=== PATIENT | female | born 1970 | race Two or more races ===

== ENCOUNTER 2019-12-10 04:43 | Inpatient (IN) | payer BC, OTHER ==
[2019-12-10] MEDS ORDERED: HEPARIN NA (PORCINE) 5,000 UNITS/ML 1ML VIAL ONE (07:17)
[2019-12-10] MEDS ORDERED: THROMBIN (BOVINE) 5,000 UNIT VIAL TP ONE ×3 (07:17→10:30)
[2019-12-10] MEDS ORDERED: MIDAZOLAM HCL 2 MG/2 ML SINGLE DOSE VIAL ONE ×2 (07:23→08:20)
[2019-12-10] MEDS ORDERED: DESFLURANE GAS 240 ML BOTTLE IH ONE (07:23)
[2019-12-10] MEDS ORDERED: PROPOFOL 20 ML ONE ×18 (07:24→14:43)
[2019-12-10] MEDS ORDERED: DEXMEDETOMIDINE HCL 200 MCG/2 ML IVPB ONE (07:30)
[2019-12-10] MEDS ORDERED: GENTAMICIN SO4 80 MG/2 ML VIAL ONE (07:57)
[2019-12-10] MEDS ORDERED: fentaNYL CITRATE 250 MCG/5 ML VIAL ONE (08:20)
[2019-12-10] MEDS ORDERED: LIDOCAINE 1%/EPI 1:100000 (50 ML MULTI DOSE VIAL) ONE (08:29)
[2019-12-10] MEDS ORDERED: ROCURONIUM BROMIDE 50 MG/5 ML SYRINGE ONE ×2 (08:29→10:00)
[2019-12-10] MEDS ORDERED: ceFAZolin SODIUM 1 GM VIAL IVPB ONE ×3 (08:45→15:04)
[2019-12-10] MEDS ORDERED: ceFAZolin SODIUM 1 GM VIAL ONE ×2 (08:49→13:10)
[2019-12-10] MEDS ORDERED: TRANEXAMIC ACID 1000 MG/10 ML VIAL ONE ×2 (08:49→14:31)
[2019-12-10] MEDS ORDERED: VANCOMYCIN 1,000 MG VIAL (RESTRICTED TO ID ONLY) ONE (08:49)
[2019-12-10] MEDS ORDERED: VANCOMYCIN 1,000 MG VIAL (RESTRICTED TO ID ONLY) IVPB ONE (09:00)
[2019-12-10] MEDS ORDERED: GELATIN, ABSORBABLE 100 EACH SPONGE TP ONE (10:31)
[2019-12-10] MEDS ORDERED: NEOSTIGMINE METHYLSULFATE 0.5 MG/1 ML - 10 ML MDV ONE (10:53)
[2019-12-10] MEDS ORDERED: BUPIVACAINE LIPOSOME/PF (EXPAREL) 266 MG/20 ML VIAL ONE (10:53)
[2019-12-10] MEDS ORDERED: GLYCOPYRROLATE 0.2 MG/1 ML VIAL ONE (10:53)
--- NOTE | 2019-12-10 13:17 | PN ---
Progress Note (short form) - Note Progress Note: 49F s/p L1-S1 laminectomies & facetectomies, left L2-L3 Hernandez-Randle osteotomy, excisional biopsy L2-L3 neurofibroma, L4-L5 PLIF, & L5-S1 PLIF, T12- S1 posterior instrumented spinal fusion POD #0. -Admit to ICU post-op. -Pain control: NO NSAID's; patient received intra-op paraspinal muscle block w/Exparel & marcaine; OK to use SPECIAL DELIVERY MAIL CARRIER if needed; transition to oral analgesia post-op. -DVT PPx: -Mechanical only: DARRELL's, SCD's. -Chemical: None. -Incentive spirometry q15 min. -NPO until flatus. -Alonso care; d/c when ambulating. -Ancef post-op x 3 doses. -PT/OT/Rehab, OOB. -WBAT B/L LE. -No bending, lifting (>5 lbs), or twisting for 9-12 months. -Care per ICU & medical hospitalist teams. -Discharge planning: [facility] Damon preferred if pt. needs rehab; f/u 7-10 days a fter rehab (or hospital) [facility]; call for appointment; . -Will follow. Carl Randle MD (Orthopaedic Surgery).
--- NOTE | 2019-12-10 13:25 | OP ---
Operative Note - Note: Operative Date: 12/10/19 Pre-Operative Diagnosis: 1. L2-L3 neurofibroma. 2. L4-L5 spondylolisthesis with associated facet cyst. 3. L5-S1 intervertebral disc disorder with associated facet cyst. 4. L2-S1 spinal stenosis with associated radiculopathy, claudication, and neurogenic bladder Operation: 1. L1 laminectomy & inferior facetectomy. 2. L2 laminectomy & superior and inferior facetectomies. 3. L3 laminectomy & superior and inferior facetectomies. 4. L4 laminectomy & superior and inferior facetectomies. 5. L5 laminectomy & superior and inferior facetectomies. 6. S1 laminectomy & superior facetectomy. 7. L4-L5 discectomy, PLIF, and posterolateral arthrodesis. 8. L5- S1 discectomy, PLIF, and posterolateral arthrodesis. 9. 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 10. Left L2-L3 Hernandez-Randle osteotomy. 11. T12-S1 posterior instrumentation. 12. Bone autograft (morselized). 13. Bone allograft (morselized). 14. Complex wound closure. 15. Fluoroscopy Implants: Cages: RTI Fortilink Tetrafuse. L4-L5 13mm. L5-S1 12mm. Screws: Precision Reform. T12-L5 6.5x40mm; Left L2 screw removed. S1 7.5x35mm Post-Operative Diagnosis: Same as Pre-op Surgeon: Carl Randle (CoSurgeon: Paul Nelson MD) Medical Program Specialist: Billy Randle Anesthesiologist/SOAP GRINDER: Yg Ríos Anesthesia: General Specimens Removed: L4-L5, L5-S1 discs. L2-L3 tumor (suspected neurofibroma) Estimated Blood Loss (mls): 550 Drains & Tubes with Location: 1 x superficial HemoVac Blood Volume Replaced (mls): 200 (Cell Saver) Fluid Volume Replaced (mls): 2,000 (Crystalloid) Operative Report Dictated: Yes
[2019-12-10] MEDS ORDERED: HYDROmorphone HCl 2 MG/ML VIAL ONE (13:30)
[2019-12-10] MEDS ORDERED: BUPIVACAINE HCL/PF 0.5% (5MG/ML) 10 ML VIAL IJ ONE (14:53)
[2019-12-10] MEDS ORDERED: BUPIVACAINE LIPOSOME/PF (EXPAREL) 266 MG/20 ML VIAL NR ONE (14:53)
[2019-12-10] MEDS ORDERED: TRANEXAMIC ACID 1000 MG/10 ML VIAL IVPUSH ONE (15:06)
[2019-12-10] MEDS ORDERED: diazePAM CARPU-JECT 10 MG/2 ML DISP.SYRIN IVPUSH PRN (15:40)
[2019-12-10] MEDS ORDERED: oxyCODONE HCL 5 MG TABLET PO PRN ×2 (15:40)
[2019-12-10] MEDS ORDERED: ACETAMINOPHEN INJECTION 100 ML IVPB ONE (16:45)
[2019-12-10] MEDS: ACETAMINOPHEN 1000 MG/100 ML VIAL (NON FORMULARY) IVPB SCH ×2 (16:49→23:45)
[2019-12-10] MEDS ORDERED: HYDROmorphone *PCA* 10MG/50ML DISP.SYRIN ONE (16:50)
[2019-12-10] MEDS: HYDROmorphone *PCA* 10MG/50ML DISP.SYRIN PCA SCH (17:06)
[2019-12-10] MEDS: LACTATED RINGERS SOLUTION 1,000 ML IV SCH (18:44)
--- NOTE | 2019-12-10 18:51 | HP ---
CHIEF COMPLAINT: POD#0 for L1-S1 laminectomies & facetectomies, left L2-L3 Hernandez-Randle osteotomy, excisional biopsy L2-L3 neurofibroma, L4-L5 PLIF (Posterior Lumbar Interbody Fusion (PLIF), & L5-S1 PLIF, T12-S1 posterior instrumented spinal fusion PCP: HISTORY OF PRESENT ILLNESS: Patient is a 49 F with PMH HTN & Sleep apnea (on CPAP) presents with a pre- operative diagnosis of (1) L2-L3 neurofibroma, (2) L4-L5 spondylolisthesis with associated facet cyst, (3) L5-S1 intervertebral disc disorder with associated facet cyst, (4) L2-S1 spinal stenosis with associated radiculopathy, claudication, and neurogenic bladder. She presented for surgery with Dr. Carl Randle for L1-S1 laminectomies & facetectomies, left L2-L3 Hernandez-Randle osteotomy, excisional biopsy L2-L3 neurofibroma, L4-L5 PLIF (Posterior Lumbar Interbody Fusion (PLIF), & L5-S1 PLIF, T12-S1 posterior instrumented spinal fusion. POD#0 Recent Travel: denies PAST MEDICAL HISTORY: HTN & Sleep apnea (on CPAP) PAST SURGICAL HISTORY: L1-S1 laminectomies & facetectomies, left L2-L3 Hernandez- Randle osteotomy, excisional biopsy L2-L3 neurofibroma, L4-L5 PLIF (Posterior Lumbar Interbody Fusion (PLIF), & L5-S1 PLIF, T12-S1 posterior instrumented spinal fusion Social History: Smoking: denies Alcohol: socially Drugs: denies Family History: denies Allergies Penicillins Allergy (Intermediate, Verified 12/10/19 07:34) Hives Sulfa (Sulfonamide Antibiotics) Allergy (Intermediate, Verified 12/10/19 07:34) Hives opoids Adverse Reaction (Intermediate, Uncoded 12/10/19 07:34) Nausea vomiting,low blood pressure HOME MEDICATIONS: Home Medications Medication Instructions Recorded Lisinopril 20 mg PO HS 12/07/19 Albuterol Sulfate Inhaler - 2 inh PO Q6H PRN 12/10/19 [Ventolin Hfa Inhaler -] REVIEW OF SYSTEMS CONSTITUTIONAL: Absent: fever, chills, diaphoresis, generalized weakness, malaise, loss of appetite, weight change HEENT: Absent: rhinorrhea, nasal congestion, throat pain, throat swelling, difficulty swallowing, mouth swelling, ear pain, eye pain, visual changes CARDIOVASCULAR: Absent: chest pain, syncope, palpitations, irregular heart rate, lightheadedness, peripheral edema RESPIRATORY: Absent: cough, shortness of breath, dyspnea with exertion, orthopnea, wheezing, stridor, hemoptysis GASTROINTESTINAL: Absent: abdominal pain, abdominal distension, nausea, vomiting, diarrhea, constipation, melena, hematochezia GENITOURINARY: Absent: dysuria, frequency, urgency, hesitancy, hematuria, flank pain, genital pain MUSCULOSKELETAL: back pain Absent: myalgia, arthralgia, joint swelling, neck pain SKIN: Absent: rash, itching, pallor HEMATOLOGIC/IMMUNOLOGIC: Absent: easy bleeding, easy bruising, lymphadenopathy, frequent infections ENDOCRINE: Absent: unexplained weight gain, unexplained weight loss, heat intolerance, cold intolerance NEUROLOGIC: Absent: headache, focal weakness or paresthesias, dizziness, unsteady gait, seizure, mental status changes, bladder or bowel incontinence PSYCHIATRIC: Absent: anxiety, depression, suicidal or homicidal ideation, hallucinations. PHYSICAL EXAMINATION Vital Signs - 24 hr 12/10/19 12/10/19 12/10/19 07:22 07:31 15:45 Temperature 97.8 F 98.6 F Pulse Rate 77 92 H Respiratory 20 17 Rate Blood Pressure 137/68 103/60 O2 Sat by Pulse 97 99 92 L Oximetry (%) 12/10/19 12/10/19 12/10/19 16:00 16:15 16:30 Temperature Pulse Rate 89 83 78 Respiratory 17 17 18 Rate Blood Pressure 125/70 118/64 112/60 O2 Sat by Pulse 94 L 100 100 Oximetry (%) 12/10/19 12/10/19 12/10/19 16:45 17:00 17:06 Temperature Pulse Rate 88 86 68 Respiratory 16 13 13 Rate Blood Pressure 129/54 L 110/61 110/61 O2 Sat by Pulse 100 100 100 Oximetry (%) 12/10/19 12/10/19 12/10/19 17:15 17:30 17:36 Temperature Pulse Rate 72 70 67 Respiratory 28 H 14 13 Rate Blood Pressure 116/53 L 93/44 L 116/57 L O2 Sat by Pulse 100 100 100 Oximetry (%) 12/10/19 12/10/19 12/10/19 17:37 17:50 18:00 Temperature 98.5 F 98.8 F Pulse Rate 65 80 78 Respiratory 17 12 16 Rate Blood Pressure 116/57 L 113/77 108/58 L O2 Sat by Pulse 100 100 Oximetry (%) 12/10/19 12/10/19 18:16 18:35 Temperature Pulse Rate 100 H Respiratory 14 Rate Blood Pressure 110/65 O2 Sat by Pulse 100 100 Oximetry (%) GENERAL: Awake, alert. In distress due to back pain HEENT: Normal with no signs of trauma. PERRL, Moist mucous membranes. LUNGS: decreased breath sounds b/l. No wheezes, and no crackles. No accessory muscle use. HEART: Regular rate and rhythm, normal S1 and S2 without murmur, rub or gallop. ABDOMEN: Obese Soft, nontender, not distended, hypoactive bowel sounds, no guarding, no rebound EXTREMITIES: 2+ pulses, warm, well-perfused. No peripheral edema. BACK: dressing along spine, Davol drain on Left side NEUROLOGICAL: unable to assess as patient is in pain and non-participatory in exam Laboratory Results - last 24 hr 12/10/19 12/10/19 12/10/19 06:32 06:32 08:09 Serum , Qual Negative Blood Type AB POSITIVE AB POSITIVE Antibody Screen Negative Crossmatch See Detail ASSESSMENT/PLAN: 49 F PMH HTN & Sleep apnea (on CPAP) admitted to ICU for post-operative management for L1-S1 laminectomies & facetectomies, left L2-L3 Hernandez-Randle osteotomy, excisional biopsy L2-L3 neurofibroma, L4-L5 PLIF (Posterior Lumbar Interbody Fusion (PLIF), & L5-S1 PLIF, T12-S1 posterior instrumented spinal fusion POD #0. Neuro -per Ortho note, NO NSAID's. 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 transition to oral analgesia post-op. -PT/OT/Rehab, OOB. -WBAT B/L LE. -No bending, lifting (>5 lbs), or twisting for 9-12 months. Cardio #HTN Continue with home lisinopril 20 mg PO HS Pulm -Incentive spirometry q15 min. Encourage incentive spirometry use #BUBBA -on CPAP at home -patient's pharmacy lists albuterol as home medication, but patient denies asthma, COPD, and other pulmonary conditions. Will ask patient again when her pain decreases and she is able to participate in exam more GI Rodrigo 4 mg IV push Q6H PRN for Nausea/vomiting -maintain Madrigal care -d/c madrigal when ambulating. ID -COVID neg -Ancef post-op x 3 doses: 2 gm Q6H DVT PPX -Mechanical only: DARRELL's, SCD's. -Chemical: None. FEN LR@125 ml/hr -Monitor lytes -NPO until flatus. DISPO -ICU -Elena Damon if pt needs rehab; f/u 7-10 days after rehab (or hospital) discharge at [facility] office; call for appointment; . Family Medical History Family History: As Documented Visit type - Emergency Visit Emergency Visit: Yes ED Registration Date: 12/10/19 Care time: The patient presented to the Emergency Department on the above date and was hospitalized for further evaluation of their emergent condition. - New Patient This patient is new to me today: Yes Date on this admission: 12/10/19 - Critical Care Critical Care patient: Yes Total Critical Care Time (in minutes): 35 Critical Care Statement: The care of this patient involved high complexity decision making to prevent further life threatening deterioration of the patient's condition and/or to evaluate & treat vital organ system(s) failure or risk of failure. ATTENDING PHYSICIAN STATEMENT I saw and evaluated the patient. I reviewed the resident's note and discussed the case with the resident. I agree with the resident's findings and plan as documented. SUBJECTIVE: OBJECTIVE: ASSESSMENT AND PLAN:
[2019-12-10] MEDS: CHLORHEXIDINE GLUCONATE 4% CLEANSER FOR DECOLONIZATION TP SCH (21:10)
[2019-12-10] MEDS: LISINOPRIL 20 MG TABLET PO SCH (21:10)
[2019-12-10] MEDS: ceFAZolin 2 GRAM PREMIX BAG IVPB SCH (21:10)
[2019-12-10] MEDS: MUPIROCIN 2% TOPICAL OINTMENT FOR DECOLONIZATION NS SCH (21:10)
--- NOTE | 2019-12-10 22:25 | OP ---
Date of Operation: 12/10/2019 Pre-Operative Diagnosis: 1. 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 2. L4-L5, L5-S1 intervertebral disc disorders with facet cysts and spondylotic radiculopathy. 3. L2-S1 spinal stenosis with neurogenic bladder, neurogenic claudication, lower extremity weakness, and increased fall risk. 4. L4-L5 spondylolisthesis (Grade 1 anterolisthesis). 5. L4-L5, L5-S1 axial segmental instability with associated myofascial pain complex and lumbosacral enthesopathy. Post-Operative Diagnosis: 1. Locally malignant L2 nerve sheath tumor ([id number]) with severe spinal stenosis. 2. L4-L5, L5-S1 intervertebral disc disorders with facet cysts and spondylotic radiculopathy. 3. L2-S1 spinal stenosis with neurogenic bladder, neurogenic claudication, lower extremity weakness, and increased fall risk. 4. L4-L5 spondylolisthesis (Grade 1 anterolisthesis). 5. L4-L5, L5-S1 axial segmental instability with associated myofascial pain complex and lumbosacral enthesopathy. Procedure Performed: 1. L1 bilateral laminectomies. ([id number]) 2. L2 bilateral laminectomy for excision of intraspinal neoplasm; combined extradural-intradural lesion. () 3. Left L2 transpedicular decompression of thecal sac and nerve root. () 4. L3 bilateral laminectomies and facetectomies. () 5. L4 bilateral laminectomies and facetectomies. () 6. L5 bilateral laminectomies and facetectomies. () 7. S1 bilateral laminectomies and facetectomies. () 8. L3 bilateral posterior osteotomies. () 9. L4 bilateral posterior osteotomies. () 10. L5 bilateral posterior osteotomies. () 11. S1 bilateral posterior osteotomies. () 12. L4-L5 posterior lumbar interbody fusion (PLIF) and bilateral posterior/lateral arthrodesis. () 13. L5-S1 posterior lumbar interbody fusion (PLIF) and bilateral posterior/lateral arthrodesis. () 14. L4-L5 insertion biomechanical device. () 15. L5-S1 insertion biomechanical device. () 16. T12-S1 posterior instrumentation; 7 vertebral segments. () 17. T12-L1 bilateral posterior/lateral arthrodesis. () 18. L1-L2 bilateral posterior/lateral arthrodesis. () 19. L2-L3 bilateral posterior/lateral arthrodesis. () 20. L3-L4 bilateral posterior/lateral arthrodesis. () 21. Deformity correction; latter-day of lordosis. () 22. Morselized bone autograft. () 23. Morselized bone allograft. () 24. Bone marrow aspiration for bone grafting. () 25. Microsurgical dissection. ([id number]) 26. Complex wound closure, 4 layers, 30cm. ([id number] x 4) 27. Fluoroscopy. ([id number]) 28. Ultrasonic guidance, intraoperative. ([id number]) Surgeon: Carl Randle M.D. Co-Surgeon: Paul Nelson M.D. Traffic Division Commanding Officer: Billy Randle M.D. Anesthesiologist: Yg Ríos M.D. Anesthesia: General. Position: Prone. Incision: Midline. Specimens Removed: Left L2 nerve sheath tumor (histology & frozen section); L4- L5, L5-S1 disc (histology). Drains: 1 x superficial HemoVac. Estimated Blood Loss: 550cc. Intravenous Fluid: 2L crystalloid. Transfusions: 200cc Cell Saver. Complications: None. Bacteriology: None. Closure: No. 1 Vicryl, 2-0 Biosyn absorbable sutures. Indications: The patient was indicated for the above listed surgical procedure due to progressive neurological, and functional decline that limits her mobility and capacity to independently perform routine activities of daily living. Due to the severity of her multi-level lumbar spinal stenosis, the patient was suffering from a neurogenic bladder, and had also experienced a fall due to her lower extremity weakness. The patient was identified in the holding area by her armband. A long discussion was held with the patient regarding the risks, benefits, and alternatives of the above-named procedure. The risks include, but are not limited to: pain, bleeding, infection, damage to surrounding structures (including nerves, blood vessels, skin, ligaments, tendons, and bone), nerve palsy, paresthesias, weakness, limp, wound complications, pseudarthrosis, failure of fusion, failure of hardware/implants/reduction, need for further surgery, blood clots, myocardial infarction, pulmonary embolism, cerebrovascular event, anesthesia complications, neurological injury, loss of function, and . Benefits as mentioned above. Alternatives include no surgery. All questions were answered. The patient understood and agreed to the procedure. Informed consent was obtained, witnessed, and verified by hospital nursing staff. The patients lumbar spine was marked. The patient was then assessed by the nursing and anesthesia teams, and then transported to the operating room. Procedure: The patient was brought into the operating room. Consent and the operative site were again verified with the patient, the nursing team, the surgical team, and the anesthesiology team. Anesthesia, IV antibiotics, and TXA were then administered without complication. A time out was done, led by me the attending surgeon. An indwelling Alonso catheter was successfully inserted by the nursing team. The intra-operative neuromonitoring team provided prepositioning baseline motor and sensory readings. The patient was then safely placed in a prone position with all bony prominences well-padded [facility] with strict attention paid to maintenance of sagittal vertical alignment. Retroversion of the pelvis was avoided by ensuring that the hips were extended. This also ensured appropriate lumbar lordosis. The arms were placed on well-padded arm boards and maintained with standard forward flexion, abduction, and external rotation of the shoulders, and flexion of the elbows. Special attention was given to the safe positioning of the cervical spine. The patients eyes, breasts, and belly were all free. The table was placed in 5 degrees of reverse Trendelenburg position to avoid ophthalmic vein congestion. Post-positional motor and sensory readings confirmed no change. A C-arm fluoroscopy unit was positioned perpendicularly to the table and maintained at the level of the upper thoracic spine, except when needed. The skin was prepped in standard, sterile fashion using betadine prep & scrub, wiped off with alcohol, and DuraPrep applied. Standard window draping was utilized, and this included draping of the C-arm. All pre-operative imaging was available throughout the case for intraoperative evaluation. A time-out was repeated, and the case began. A midline skin incision was performed from the tip of the spinous process of T11 to the tip of the spinous process of S2. Using electrocautery, the dissection was carried down through subcutaneous fat and then through the midline of the lumbodorsal fascia down to the tips of the spinous processes. A subperiosteal dissection was performed using a combination of unipolar electrocautery and Bradshaw elevation. This was carried down the spinous process, over the laminae, across the facet joints, and out over the tips of the transverse processes from T12 to the ala of the sacrum. The posterolateral dissection was performed with attention to hemostasis by utilizing both unipolar as well as bipolar electrocautery. In this dissection, the capsules of the T11-T12 joints were preserved bilaterally. The L3-L4, L4-L5, and L5-S1 joint capsules were pathologically hypertrophic. These facet joints were ablated using electrocautery and resected with Leksell rongeurs. The posterolateral and intertransverse spaces were packed with Ray-Isa sponges. A Yesika clamp was placed over an exposed interspinous space and, once again, a lateral fluoroscopic x-ray helped identify the correct levels for dissection. A rongeur was used to grasp the L3, L4, and L5 spinous processes and demonstrate the mobility of the L3-L4, L4-L5, and L5-S1 segments. This helped identify the last mobile segment. Bilateral laminectomies were performed at L3, L4, L5, and S1 utilizing Kerrison rongeur upcuts combined with Leksell rongeurs. All harvested bone was saved, freed of fibrous tissue, and morselized with a bone mill. Next, an osteotome was utilized to bilaterally and longitudinally split the pars interarticularis and the inferior facets of L3, L4, and L5. The osteotomized bone was imploded towards the thecal sac, which was protected with cottonoid patties, and removed with either a Leksell rongeur or a Kerrison ronguer. The ligamentum flavum and other posterior soft tissue remained intact and served as a soft-tissue cushion which protected the dura during the bony implosion. Upon removal of all osteotomized bone, we gained clear and easy access to the superior facets of L4, L5, and S1, where abnormally tight recess stenosis was appreciated. The exiting L3, L4, L5, & S1 nerve roots were identified and protected. More than the medial half of the superior facet was resected on each side using Kerrison rongeurs. This was necessary to adequately decompress the theca and the exiting nerve roots at each level. The crowding of the convoluted ligamentum flavum and posterior facet joint capsules contributed to the recess stenosis. These structures were excised using Kerrison upcuts, thus fully completing the posterior and lateral recess decompression. Each foramen from L3-S1 was inspected utilizing an angled ball-tipped probe and proved to be generously capacious in accommodating the unobstructed exit of the nerve root at that level. All retractors were relaxed and removed. A Jamshidi needle was delivered into the left posterior ileum through the same surgical incision. Via this, 60 mL of bone marrow was aspirated and spun down to isolate a mix of osteoprogenitor and hematopoietic cells. Retractors were inserted once again. In order to adequately decompress each lateral recess and neuroforamen from L3- S1, greater than 50% of the facet joint on each side was osteotomized and resected. This extensive decompression has been shown to result in iatrogenic instability of the spine (I.E. spondylolisthesis). Thus, the decision was made to additionally perform posterior lumbar interbody fusions at L4-L5 and L5-S1 (where the discs were additionally compromised) with instrumented posterolateral arthrodesis from L3-S1. The combination of anterior interbody arthrodesis and posterolateral instrumented arthrodesis is known to produce the highest success rates of spinal fusion surgery. The following was performed at L4-L5 and L5-S1: At both levels, there was extensive epidural fibrosis that was meticulously dissected to allow safe mobilization of the theca. The theca was gently mobilized from left to right using a nerve root retractor. To do this, we ensured that each nerve root was completely free in its neural foramen as previously described. With the intervertebral disc clearly visualized, large epidural veins were cauterized using bipolar electrocautery. The disc was approached from the left side and using a #11-blade, an elliptical annulotomy was performed. Tejas were passed into the disc at each level. At each level, the discs were morselized with rotation of the tejas, and then extricated with pituitary rongeurs and saved for lab evaluation. The end plates were freed of all soft tissues using a serrated curette. Milled bone autograft was packed into the interbody space, thus completing an anterior arthrodesis of the intervertebral space. A Fortilink Tetrafuse spacer, that was packed with autograft bone, was inserted into the prepared intervertebral space. The cage was placed in a Press-Fit type manner where the tejas were one size under the actual size of the spacer placed as outlined above. An interference fit of the cage assured as we relied on ligamentotaxis for fixation. Placement of the interbody cage additionally reconstituted the intervertebral disc height, which further decompressed the stenosed neuroforaminae bilaterally. No dural problems were encountered, and the dura appeared healthy throughout the procedure. At this point, the neuromonitoring revealed no complications. Cages and sizes inserted: L4-L5: [id number]. L5-S1: [id number]. Bilateral laminectomies were then also performed at L1 and L2 utilizing Kerrison rongeur upcuts combined with Leksell rongeurs. All harvested bone was saved, freed of fibrous tissue, and morselized with a bone mill. At L2, the dissection was carried laterally to the left with complete removal of the superior facet of L2 and the inferior facet of L3 (I.E. a Hernandez-Randle osteotomy with removal of the entire L2-L3 facet joint). The left L2 transverse process and part of the left L2 pedicle were resected as well. The tumor was entirely exposed all the way to its lateral margin. Intraoperative ultrasonic guidance was utilized to confirm that the cranial and caudal poles of the tumor were exposed. The operating microscope was then introduced into the field. The decompression and excision of the tumor occurred using meticulous microdissection techniques. The dura over the expanded nerve root sleeve was incised horizontally using an 11 blade. This incision was extended laterally. The tumor was dissected free from the large root sleeve, and then was removed in piecemeal fashion. Several pieces of tumor were sent to the pathology lab for Frozen Section analysis, which confirmed nerve sheath tumor with no atypia. Following complete dissection of the tumor, the left L2 nerve root remained in anatomic continuity. There was no response of the left L2 nerve to direct electrical stimulation. The Frozen Section specimen appeared benign, so we elected not to sacrifice the left L2 nerve root. The dural ostium at that level was repaired with Surgicel guaze and DuraSeal. Pedicle screws were then seated bilaterally from T12-S1 utilizing standard anatomical guidelines: IE the intersection of the horizontal axis of the transverse process with the longitudinal axis of the inferior facet at each level. The left L2 screw was skipped due to the transpedicular approach utilized. Utilizing lateral fluoroscopic x-ray, a 4.5mm pneumatic drill was passed via the pedicle at each level, into the corresponding vertebral body. Imaging allowed us to ensure that the drill screw was delivered along the undersurface of each endplate. This ensured fixation into the best quality bone. Each pedicle was palpated with a ball-tipped feeler. No breech of anterior, medial, lateral, caudal or cranial bone bed was noted. 6.5x40mm Precision Spine Reform screws were inserted from T12 to L5. At S1, 7.5x35mm screws were used. All intraoperative neuromonitoring readings were at or above the safe passage of 10 mA. Each screw was reevaluated with lateral and anteroposterior fluoroscopy as well as intraoperative neuromonitoring. The L3, L4, L5 and S1 pedicles were inspected and palpated using an angled ball- tipped probe. There was no evidence of screw breach involving any of the pedicles. Next, two rods were contoured, inserted, and fixed into the screw heads with the appropriate screw caps. A torque-limiting device completed the fixation of each cap into each screw head. No crosslink. Next, the muscle was gently retracted off the intertransverse plane. All Ray-Isa packing sponges were removed. Milled autologous bone with allograft expansion was combined with the bone marrow aspirate concentrate and used for the posterolateral arthrodesis along the intertransverse plane from T12 to S1. Prior to this bone grafting, the recipient bone bed was denuded of all soft tissue. No burring was necessary due to healthy bleeding of each bony surface, including the posterior surfaces of the bilateral transverse processes, and the lateral surfaces of the pars interarticularis at each level. Throughout the case, the wound was irrigated with normal saline solution to keep the exposed soft tissues hydrated. The retractors were released every 15 to 20 minutes to enable adequate blood flow to the paraspinal muscles. These muscles were gently massaged upon release of the retractors to further facilitate blood flow. At the end of the procedure, fragmented and compromised paraspinal muscle was superficially debrided. There was no evidence of dural defect, cerebrospinal fluid leak, or uncontrollable bleeding. The entirety of this case was significantly more technically challenging than usual dude to the patients morbid obesity (BMI >42 kg/m2). Closure: The lumbodorsal fascia overlying the paraspinal musculature was closed in the midline using #1 vicryl sutures in simple interrupted fashion. A 1/8 HemoVac drain was placed in the plane superficial to the fascia, exiting adjacent to the proximal apex of the incision. The wound was repeatedly thoroughly irrigated with normal saline solution. The subcutaneous tissues were closed using #1 Vicryl sutures. The skin was closed using a running 2-0 Biosyn absorbable suture. This completed a 4-layered complex wound closure of approximately 30cm. The skin was then painted with benzoin and Steri-Strips were applied without tension perpendicularly to the incision. A Primapore adhesive Telfa island dressing was applied over the Steri-Strips and a sterile, compressive dressing was applied using 4x4 gauze pads. The skin was painted with DuraPrep. The wound was then sealed with adhesive Ioban. Final AP & lateral fluoroscopic analysis revealed L4-L5 and L5-S1 PLIF cages and T12-S1 instrumentation that appeared intact & place. The L4-L5 and L5-S1 disc heights were reconstituted with visibly patent neuroforaminae. There was no fluoroscopic evidence of retained sponges or needles. The sponge and needle counts were correct at the end of the case and I, the attending surgeon, was present and scrubbed throughout the case. All neural monitoring leads were removed. The patient was transferred to a hospital bed. The patient was then transferred to the recovery room in stable condition, as per the anesthesia team, having tolerated the procedure well. Overall comment: Operation went extremely well with no complications. All appropriate goals were achieved in this operative event. MD YENI Vásquez/[id number] MTDD
[2019-12-11] MEDS: ceFAZolin 2 GRAM PREMIX BAG IVPB SCH ×2 (03:19→08:10)
[2019-12-11] MEDS ORDERED: ARTIFICIAL TEARS (POLYVINYL ALCOHOL) OPTH DROPS OU PRN (05:34)
[2019-12-11 07:37] LABS: HEMATOCRIT 27.4 % (32.4-45.2); HEMOGLOBIN 9.1 GM/dL (10.7-15.3); MCH 29.1 pg (25.7-33.7); MCHC 33.3 g/dl (32.0-36.0); MEAN CELL VOLUME 87.4 fl (80-96); MEAN PLT VOLUME 8.1 fl (7.5-11.1); PLATELET COUNT 281 K/MM3 (134-434); RBC 3.14 M/mm3 (3.60-5.2); RDW 14.4 % (11.6-15.6)
[2019-12-11 07:40] LABS: BLOOD UREA NITROGEN 10.2 mg/dL (7-18); CALCIUM 8.2 mg/dL (8.5-10.1); CREATININE 0.5 mg/dL (0.55-1.3); MAGNESIUM 1.6 mg/dL (1.8-2.4)
[2019-12-11] MEDS: ACETAMINOPHEN 1000 MG/100 ML VIAL (NON FORMULARY) IVPB SCH (08:07)
--- NOTE | 2019-12-11 08:13 | PN ---
Progress Note (short form) - Note Progress Note: Anesthesia/Pain Pt seen and examined S:Alert and awake,comfortable O: Vital Signs Temperature 98.3 F 12/11/19 06:00 Pulse Rate 90 12/11/19 07:49 Respiratory Rate 14 12/11/19 07:49 Blood Pressure 120/51 L 12/11/19 07:30 O2 Sat by Pulse Oximetry (%) 100 12/11/19 07:56 CBC, BMP 12/11/19 05:30 12/11/19 05:30 A/P; s/p laminectomy Doing well post op Continue current care Laci Tai M.D.
[2019-12-11] MEDS ORDERED: MAGNESIUM SULF 50% (8.12 MEQ/2 ML-1 GM VIAL) IVPB ONE (09:00)
--- NOTE | 2019-12-11 10:19 | PN ---
Physical Exam: SUBJECTIVE: Patient seen and examined. Endorsed lower back pain that is controlled with the REHAB CONSULTANT. Endorsed new-onset blurry vision since waking up after the surgery. She endorsed that someone had told her that it is a possible complication from anesthesia. However, her vision has improved in the morning. Endorsed decreased sensation in Left arm, but then later endorsed decreased sensation in different arms to different providers. Also endorses pain in Right arm. Patient also endorsed decreased sensation in the Left leg, however when the SCDs were taken off, the sensation in her bilateral legs were equal. Davol drained 100 mL sanguinous fluid overnight. POD#1 OBJECTIVE: Vital Signs Period Temp Pulse Resp BP Sys/Connolly Pulse Ox Last 24 Hr 98 F-98.8 F 64-100 12-28 93-129/44-91 92-100 GENERAL: The patient is awake, alert, and fully oriented, in no acute distress. back pain HEENT: Normal with no signs of trauma. PERRL, EOMI, MMM LUNGS: Breath sounds equal, clear to auscultation bilaterally, no wheezes, no crackles, no accessory muscle use. HEART: Regular rate and rhythm, S1, S2 without murmur, rub or gallop. ABDOMEN: Obese Soft, nontender, not distended, hypoactive bowel sounds, no guarding, no rebound EXTREMITIES: 2+ pulses, warm, well-perfused. No peripheral edema. BACK: dressing along spine, Davol drain on Left side NEUROLOGICAL: Cranial nerves II through XII grossly intact. Normal speech, gait not observed. PSYCH: Normal mood, normal affect. Laboratory Results - last 24 hr 12/11/19 12/11/19 05:30 05:30 WBC 15.0 H RBC 3.14 L Hgb 9.1 L Hct 27.4 L MCV 87.4 MCH 29.1 MCHC 33.3 RDW 14.4 Plt Count 281 MPV 8.1 Sodium 142 Potassium 4.0 Chloride 107 Carbon Dioxide 29 Anion Gap 6 L BUN 10.2 Creatinine 0.5 L Est GFR (CKD-EPI)AfAm 132.65 Est GFR (CKD-EPI)NonAf 114.45 Random Glucose 93 Calcium 8.2 L Phosphorus 4.0 Magnesium 1.6 L Active Medications Generic Name Dose Route Start Last Admin Trade Name Freq PRN Reason Stop Dose Admin Artificial Tears 1 drop 12/11/19 05:34 Artificial Tears OU BID PRN DRY EYES Chlorhexidine Gluconate 1 applic 12/10/19 22:00 12/10/19 21:10 Hibiclens For Decolonization - TP 1 applic HS SHERRY Administration Diazepam 5 mg 12/10/19 15:40 Valium Injection - IVPUSH Q6H PRN MUSCLE SPASMS Diphenhydramine HCl 12.5 mg 12/10/19 15:51 12/11/19 08:39 Benadryl Injection - IVPUSH 12.5 mg ONCE PRN Administration FOR ITCHING Hydromorphone HCl 10 mg 12/10/19 16:00 12/10/19 17:06 Hydromorphone 10 Mg/50 Ml-Ns REHAB CONSULTANT 12/17/19 15:52 10 mg REHAB CONSULTANT SHERRY Administration Protocol Lactated Ringer's 1,000 mls @ 125 mls/hr 12/10/19 15:45 12/10/19 18:44 Lactated Ringers Solution IV Not Given ASDIR SHERRY Lisinopril 20 mg 12/10/19 22:00 12/10/19 21:10 Prinivil PO 20 mg HS SHERRY Administration Mupirocin 1 applic 12/10/19 22:00 12/10/19 21:10 Bactroban Ointment (For Decolonization) - NS 12/15/19 21:59 1 applic BID SHERRY Administration Ondansetron HCl 4 mg 12/10/19 15:40 Zofran Injection IVPUSH Q6H PRN NAUSEA AND/OR VOMITING ASSESSMENT/PLAN: 49 F PMH HTN & Sleep apnea (on CPAP) admitted to ICU for post-operative management for L1-S1 laminectomies & facetectomies, left L2-L3 Hernandez-Randle osteotomy, excisional biopsy L2-L3 neurofibroma, L4-L5 PLIF (Posterior Lumbar Interbody Fusion (PLIF), & L5-S1 PLIF, T12-S1 posterior instrumented spinal fusion POD #1. Neuro -per Ortho note, NO NSAID's. Currently on hydromorphone 10 mg REHAB CONSULTANT. transition to oral analgesia post-op. -PT/OT/Rehab, OOB. -WBAT B/L LE. -No bending, lifting (>5 lbs), or twisting for 9-12 months. -Spine X-ray: posterior fusion from T12 through the upper sacrum. Lower laminectomies. SI joints are patent. There are Right upper quadrant clips and a drain Cardio #HTN Continue with home lisinopril 20 mg PO HS Pulm -Incentive spirometry q15 min. Encourage incentive spirometry use #BUBBA -on CPAP at home -patient took albuterol only in May for URI, but no longer takes it. denies asthma, COPD, & other pulmonary complications. GI Zofran 4 mg IV push Q6H PRN for Nausea/vomiting Heme #Leukocytosis likely reactive: WBCs 15 #Normocytic anemia: Hgb/Hct 9.1/27.4; MCV 87.4 -estimated blood loss during procedure was 550 ml -maintain Madrigal care -d/c madrigal when ambulating. ID -COVID neg -Ancef post-op x 3 doses: 2 gm Q6H DVT PPX -Mechanical only: DARRELL's, SCD's. -Chemical: None. FEN LR@125 ml/hr -Monitor lytes -NPO until flatus. DISPO -ICU -Elena Damon if pt needs rehab; f/u 7-10 days after rehab (or hospital) discharge at [facility] office; call for appointment; . Visit type - Emergency Visit Emergency Visit: Yes ED Registration Date: 12/10/19 Care time: The patient presented to the Emergency Department on the above date and was hospitalized for further evaluation of their emergent condition. - New Patient This patient is new to me today: No - Critical Care Critical Care patient: Yes Total Critical Care Time (in minutes): 35 Critical Care Statement: The care of this patient involved high complexity decision making to prevent further life threatening deterioration of the patient's condition and/or to evaluate & treat vital organ system(s) failure or risk of failure. ATTENDING PHYSICIAN STATEMENT I saw and evaluated the patient. I reviewed the resident's note and discussed the case with the resident. I agree with the resident's findings and plan as documented. SUBJECTIVE: OBJECTIVE: ASSESSMENT AND PLAN:
[2019-12-11] MEDS ORDERED: PCA PUMP NR ONE ×2 (10:33→19:07)
[2019-12-11] MEDS: HYDROmorphone *PCA* 10MG/50ML DISP.SYRIN PCA SCH (10:36)
[2019-12-11] MEDS: MUPIROCIN 2% TOPICAL OINTMENT FOR DECOLONIZATION NS SCH ×3 (10:57→21:57)
[2019-12-11] MEDS: LACTATED RINGERS SOLUTION 1,000 ML IV SCH (10:59)
--- NOTE | 2019-12-11 11:34 | PN ---
Teaching Attending Note Name of Resident: Kostas Douglas ATTENDING PHYSICIAN STATEMENT I saw and evaluated the patient. I reviewed the resident's note and discussed the case with the resident. I agree with the resident's findings and plan as documented. SUBJECTIVE: 49 F, HTN and Obstructive Sleep apnea (on CPAP). Additional history of (1) L2-L3 neurofibroma, (2) L4-L5 spondylolisthesis with associated facet cyst, (3) L5-S1 intervertebral disc disorder with associated facet cyst, (4) L2-S1 spinal stenosis with associated radiculopathy, cla udication, and neurogenic bladder. POD#1: 1. L1 laminectomy & inferior facetectomy. 2. L2 laminectomy & superior and inferior facetectomies. 3. L3 laminectomy & superior and inferior facetectomies . 4. L4 laminectomy & superior and inferior facetectomies. 5. L5 laminectomy & superior and inferior facetectomies. 6. S1 laminectomy & superior facetectomy. 7. L4-L5 discectomy, PLIF, and posterolateral arthrodesis. 8. L5-S1 discectomy, PLIF, and posterolateral arthrodesis. 9. 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 10. Left L2-L3 Hernandez-Randle osteotomy. 11. T12-S1 posterior instrumentation. 12. Bone autograft (morselized). 13. Bone allograft (morselized). 14. Complex wound closure. 15. Fluoroscopy Implants: Cages: RTI Fortilink Tetrafuse. L4-L5 13mm. L5-S1 12mm. Screws: Precision Reform. T12-L5 6.5x40mm; Left L2 screw removed. S1 7.5x35mm Seen in in the ICU. Awake and alert. Pain 7/10 despite being on SOLAR INSTALLATION CREW SUPERVISOR. No CP or SOB. Intake & Output 12/08/19 12/09/19 12/10/19 12/11/19 23:59 23:59 23:59 23:59 Intake Total 2425 1750 Output Total 940 600 Balance 1485 1150 Weight 239 lb 4 oz Last Vital Signs Temp Pulse Resp BP Pulse Ox 98.7 F 100 H 18 114/56 L 99 12/11/19 10:47 12/11/19 10:45 12/11/19 10:45 12/11/19 11:02 12/11/19 10:45 Active Medications Artificial Tears (Artificial Tears) 1 drop OU BID PRN PRN Reason: DRY EYES Chlorhexidine Gluconate (Hibiclens For Decolonization -) 1 applic [address] [facility] Last Admin: 12/10/19 21:10 Dose: 1 applic Documented by: Diazepam (Valium Injection -) 5 mg IVPUSH Q6H PRN PRN Reason: MUSCLE SPASMS Diphenhydramine HCl (Benadryl Injection -) 12.5 mg IVPUSH ONCE PRN PRN Reason: FOR ITCHING Last Admin: 12/11/19 08:39 Dose: 12.5 mg Documented by: Hydromorphone HCl (Hydromorphone 10 Mg/50 Ml-Ns) 10 mg SOLAR INSTALLATION CREW SUPERVISOR SOLAR INSTALLATION CREW SUPERVISOR [facility]; Protocol Stop: 12/17/19 15:52 Last Admin: 12/11/19 10:36 Dose: 10 mg Documented by: Lactated Ringer's (Lactated Ringers Solution) 1,000 mls @ 125 mls/hr IV ASDIR [facility] Last Admin: 12/11/19 10:59 Dose: 125 mls/hr Documented by: Lisinopril (Prinivil) 20 mg PO [facility] Last Admin: 12/10/19 21:10 Dose: 20 mg Documented by: Mupirocin (Bactroban Ointment (For Decolonization) -) 1 applic NS BID [facility] Stop: 12/15/19 21:59 Last Admin: 12/11/19 10:57 Dose: Not Given Documented by: Ondansetron HCl (Zofran Injection) 4 mg IVPUSH Q6H PRN PRN Reason: NAUSEA AND/OR VOMITING GENERAL: Awake, alert. In mild distress due to back pain. HEENT: Moist mucous membranes. LUNGS: decreased breath sounds. No wheezes, and no crackles. No accessory muscle use. HEART: Regular rate and rhythm, normal S1 and S2 without murmur, rub or gallop. ABDOMEN: Obese Soft, nontender, not distended, hypoactive bowel sounds, no guarding, no rebound EXTREMITIES: 2+ pulses, warm, well-perfused. No peripheral edema. BACK: dressing intact NEUROLOGICAL: Non-focal Laboratory Results - last 24 hr 12/11/19 12/11/19 05:30 05:30 WBC 15.0 H RBC 3.14 L Hgb 9.1 L Hct 27.4 L MCV 87.4 MCH 29.1 MCHC 33.3 RDW 14.4 Plt Count 281 MPV 8.1 Sodium 142 Potassium 4.0 Chloride 107 Carbon Dioxide 29 Anion Gap 6 L BUN 10.2 Creatinine 0.5 L Est GFR (CKD-EPI)AfAm 132.65 Est GFR (CKD-EPI)NonAf 114.45 Random Glucose 93 Calcium 8.2 L Phosphorus 4.0 Magnesium 1.6 L ASSESSMENT/PLAN: POD #1: 1. L1 laminectomy & inferior facetectomy. 2. L2 laminectomy & superior and inferior facetectomies. 3. L3 laminectomy & superior and inferior facetectomies. 4. L4 laminectomy & superior and inferior facetectomies. 5. L5 laminectomy & superior and inferior facetectomies. 6. S1 laminectomy & superior facetectomy. 7. L4-L5 discectomy, PLIF, and posterolateral arthrodesis. 8. L5- S1 discectomy, PLIF, and posterolateral arthrodesis. 9. 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 10. Left L2-L3 Hernandez-Randle osteotomy. 11. T12-S1 posterior instrumentation. 12. Bone autograft (morselized). 13. Bone allograft (morselized). 14. Complex wound closure. 15. Fluoroscopy Implants: Cages: RTI Fortilink Tetrafuse. L4-L5 13mm. L5-S1 12mm. Screws: Precision Reform. T12-L5 6.5x40mm; Left L2 screw removed. S1 7.5x35mm HTN Sleep apnea (on CPAP) Pain control Supplemental O2 as needed CPAP QHS VTE prophylaxis Incentive Spirometry No NSAID's PT/OT/OOB per Surgery Lisinopril 20 mg DC madrigal when ambulating. Ancef post-op x 3 doses: 2 gm Q6H Floor when cleared by surgery Dr Wiggins
--- NOTE | 2019-12-11 12:38 | PN ---
Progress Note (short form) - Note Progress Note: SPINE SURGERY PROGRESS NOTE Patient lying comfortably in bed. Able to move bilateral lower extremities against gravity with grossly unchanged motor/sensory exam. Drain put out 100 cc. Discussed surgery and expected course of care with patient. Pain well controlled with ENRICHMENT TEACHER. - GI/DVT prophylaxis - Follow Labs - Physical Therapy - OOB to chair and ambulate with assistance - Pathology pending - Continue ENRICHMENT TEACHER - will follow
[2019-12-11] MEDS: diphenhydrAMINE HCL 25 MG CAPSULE (FP) PO ONE ×2 (15:42→15:46)
[2019-12-11] MEDS: CHLORHEXIDINE GLUCONATE 4% CLEANSER FOR DECOLONIZATION TP SCH (21:57)
[2019-12-11] MEDS: LISINOPRIL 20 MG TABLET PO SCH (21:57)
[2019-12-12] MEDS ORDERED: LACTATED RINGERS SOLUTION 1,000 ML/1,000 ML INFUS.BAG IV STA (02:05)
[2019-12-12] MEDS ORDERED: ACETAMINOPHEN 1000 MG/100 ML VIAL (NON FORMULARY) IVPB ONE ×3 (02:30→21:43)
[2019-12-12] MEDS ORDERED: CEFTRIAXONE 1 GM in DEXTROSE 5%-WATER - 50 ML IVPB ONE (03:27)
[2019-12-12] MEDS ORDERED: VANCOMYCIN 1 GM in D5W (PRE-DOCKED) 1,000 MG/250 ML IVPB ONE (03:28)
[2019-12-12] MEDS ORDERED: SODIUM CHLORIDE 1,000 ML IV STA ×3 (03:29→06:47)
[2019-12-12] MEDS ORDERED: CEFTRIAXONE 2 GM in DEXTROSE 5%-WATER 100 ML IVPB ONE (03:30)
[2019-12-12] MEDS ORDERED: VANCOMYCIN 1 GRAM (PRE-DOCKED) 1,000 MG/250 ML BAG IVPB ONE (03:45)
[2019-12-12] MEDS ORDERED: DEXTROSE 5%-WATER 100 ML IVPB ONE (03:47)
[2019-12-12] MEDS: SODIUM CHLORIDE 1,000 ML IV SCH ×2 (04:04→22:11)
[2019-12-12 04:15] LABS: BASO % 0.2 % (0-2.0); EOS % 0.4 % (0-4.5); HEMATOCRIT 26.7 % (32.4-45.2); HEMOGLOBIN 8.7 GM/dL (10.7-15.3); MCH 28.9 pg (25.7-33.7); MCHC 32.7 g/dl (32.0-36.0); MEAN CELL VOLUME 88.2 fl (80-96); MEAN PLT VOLUME 8.6 fl (7.5-11.1); MONO % 6.4 % (3.8-10.2); PLATELET COUNT 256 K/MM3 (134-434); RBC 3.03 M/mm3 (3.60-5.2); RDW 14.7 % (11.6-15.6); WHITE BLOOD COUNT 14.1 K/mm3 (4.0-10.0)
[2019-12-12 04:19] LABS: EPI CELLS 28 /uL (0-25.1); HYALINE CASTS 15 /uL (0-3.1); PH,URINE 5.5 (5.0-8.0); URINE APPEARANCE CLEAR; URINE BACTERIA 7 /uL (0-1359); URINE BILIRUBIN NEGATIVE (NEGATIVE); URINE COLOR DK YELLOW; URINE GLUCOSE (UA) NEGATIVE (NEGATIVE); URINE KETONE 3+ (NEGATIVE); URINE LEUK ESTERASE NEGATIVE (NEGATIVE); URINE NITRITE NEGATIVE (NEGATIVE); URINE PROTEIN 1+ (NEGATIVE); URINE RBC 140 /uL (0-23.9); URINE UROBILINOGEN 0.2 mg/dL (0.2-1.0); URINE WBC 43 /uL (0-25.8)
[2019-12-12 04:50] LABS: ALBUMIN 2.8 g/dl (3.4-5.0); BILIRUBIN,TOTAL 0.6 mg/dL (0.2-1); BLOOD UREA NITROGEN 7.2 mg/dL (7-18); CALCIUM 8.1 mg/dL (8.5-10.1); CREATININE 0.5 mg/dL (0.55-1.3); POTASSIUM 3.5 mmol/L (3.5-5.1); TOT PROT 6.4 g/dl (6.4-8.2)
[2019-12-12] MEDS: MUPIROCIN 2% TOPICAL OINTMENT FOR DECOLONIZATION NS SCH ×2 (10:03→21:25)
--- NOTE | 2019-12-12 11:21 | PN ---
Teaching Attending Note Name of Resident: Kostas Douglas ATTENDING PHYSICIAN STATEMENT I saw and evaluated the patient. I reviewed the resident's note and discussed the case with the resident. I agree with the resident's findings and plan as documented. SUBJECTIVE: Pt seen and examined in the ICU. Pain controlled with CLOTHES IRONER. c/o headache and legs feel stiff. Febrile overnight. UA with 43 WBC. OBJECTIVE: Vital Signs Period Temp Pulse Resp BP Sys/Connolly Pulse Ox Last 24 Hr 98.9 F-101.4 F 78-108 14-26 74-139/34-95 93-100 Intake & Output 12/09/19 12/10/19 12/11/19 12/12/19 23:59 23:59 23:59 23:59 Intake Total 2425 3350 2850 Output Total 940 970 700 Balance 1485 2380 2150 Weight 108.522 kg Gen: NAD in chair Heart: RRR Lung: decreased breath sounds at the bases Abd: soft, nontender Ext: no edema CBC, BMP 12/12/19 02:30 12/12/19 03:00 Active Medications Acetaminophen (Ofirmev Injection -) 1,000 mg IVPB ONCE ONE Stop: 12/12/19 10:59 Last Admin: 12/12/19 11:02 Dose: 1,000 mg Documented by: Artificial Tears (Artificial Tears) 1 drop OU BID PRN PRN Reason: DRY EYES Chlorhexidine Gluconate (Hibiclens For Decolonization -) 1 applic TP HS [facility]ERRY Last Admin: 12/11/19 21:57 Dose: 1 applic Documented by: Diazepam (Valium Injection -) 5 mg IVPUSH Q6H PRN PRN Reason: MUSCLE SPASMS Last Admin: 12/11/19 12:58 Dose: 5 mg Documented by: Diphenhydramine HCl (Benadryl Injection -) 12.5 mg IVPB Q6H PRN PRN Reason: itching Last Admin: 12/12/19 04:04 Dose: 12.5 mg Documented by: Hydromorphone HCl (Hydromorphone 10 Mg/50 Ml-Ns) 10 mg CLOTHES IRONER CLOTHES IRONER SHERRY; Protocol Stop: 12/17/19 15:52 Last Admin: 12/11/19 10:36 Dose: 10 mg Documented by: Sodium Chloride (Normal Saline -) 1,000 mls @ 125 mls/hr IV ASDIR [facility] Last Admin: 12/12/19 04:04 Dose: 125 mls/hr Documented by: Ceftriaxone Sodium 1 gm/ (Dextrose) 50 mls @ 200 mls/hr IVPB DAILY [facility]; Protocol Lisinopril (Prinivil) 20 mg PO HS [facility] Last Admin: 12/11/19 21:57 Dose: 20 mg Documented by: Mupirocin (Bactroban Ointment (For Decolonization) -) 1 applic NS BID [facility] Stop: 12/15/19 21:59 Last Admin: 12/12/19 10:03 Dose: 1 applic Documented by: Ondansetron HCl (Zofran Injection) 4 mg IVPUSH Q6H PRN PRN Reason: NAUSEA AND/OR VOMITING ASSESSMENT AND PLAN: L2-L3 Neurofibroma Lumbar Spinal Stenosis with Radiculopathy and Claudication s/p L1 laminectomy & inferior facetectomy/L2 laminectomy & superior and inferior facetectomies/L3 laminectomy & superior and inferior facetectomies/L4 thorne inectomy & superior and inferior facetectomies/L5 laminectomy & superior and inferior facetectomies/S1 laminectomy & superior facetectomy/L4-L5 discectomy, PLIF, and posterolateral arthrodesis/L5-S1 discectomy, PLIF, and posterolateral arthrodesis/Excision extensive left L2 nerve sheath tumor/Left L2-L3 Hernandez- Ranlde osteotomy HTN BUBBA Anemia - pain control - incentive spirometry - empiric antibiotics - f/u cultures - diet/activity/disposition per surgery - DVT prophylaxis
--- NOTE | 2019-12-12 13:20 | PN ---
Progress Note (short form) - Note Progress Note: SPINE SURGERY FOLLOW UP Patient in bed with more incisional pain as infiltrated anesthetic wears off. Was able to transfer and sit in chair for a while this morning. Low grade temperature and difficulty voiding shortly after Alonso catheter removed. No flatus. - Follow urine output, may require catheterization - Incentive spirometer and deep breathing encouraged - Continue OOB - Remain in ICU and will reassess in AM - Continue minimal oral intake until passing flatus - Pain control per Anesthesia - GI/DVT prophylaxis - Follow Pathology
--- NOTE | 2019-12-12 13:29 | PN ---
Progress Note (short form) - Note Progress Note: Anesthesiology pain management note Post op day two s/p lumbar spinal decompression and laminectomy, on software publisher for pain control, using effectively, not taking po yet, will continue software publisher until taking po. dept of anesthesiology will continue to manage software publisher
--- NOTE | 2019-12-12 13:33 | CON.ID ---
Consult Consult Specialty:: infectious diseases Referred by:: dr verduzco Reason for Consultation:: fever,chills,post op - History of Present Illness Chief Complaint: fever.chills,pain History of Present Illness: 49 F with PMH HTN & Sleep apnea (on CPAP) presents with a pre-operative diagnosis of (1) L2-L3 neurofibroma, (2) L4-L5 spondylolisthesis with associated facet cyst, (3) L5-S1 intervertebral disc disorder with associated facet cyst, (4) L2-S1 spinal stenosis with associated radiculopathy, claudication, and neurogenic bladder. She presented for surgery with Dr. Carl Randle for L1-S1 laminectomies & facetectomies, left L2-L3 Hernandez-Randle osteotomy, excisional biopsy L2-L3 neurofibroma, L4-L5 PLIF (Posterior Lumbar Interbody Fusion (PLIF), & L5-S1 PLIF, T12-S1 posterior instrumented spinal fusion. POD#0 patient post spiked fever and i was called to evaluate the cause of the fever - History Source History Provided By: Patient Limitations to Obtaining History: No Limitations - Past Medical History ...LMP: 11/29/19 ...: No - Smoking History Smoking history: Never smoked Home Medications - Allergies Allergies/Adverse Reactions: Allergies Allergy/AdvReac Type Severity Reaction Status Date / Time Penicillins Allergy Intermediate Hives Verified 12/10/19 07:34 Sulfa (Sulfonamide Allergy Intermediate Hives Verified 12/10/19 07:34 Antibiotics) shellfish derived Allergy Verified 12/16/19 15:54 opoids AdvReac Intermediate Nausea Uncoded 12/10/19 07:34 - Home Medications Home Medications: Ambulatory Orders RX: Lisinopril 20 mg PO HS 12/07/19 Review of Systems - Review of Systems Constitutional: reports: Fever, Other (pain) Eyes: reports: No Symptoms HENT: reports: No Symptoms Neck: reports: No Symptoms Cardiovascular: reports: No Symptoms Respiratory: reports: No Symptoms Gastrointestinal: reports: No Symptoms Musculoskeletal: reports: Back Pain Integumentary: reports: No Symptoms Neurological: reports: No Symptoms Endocrine: reports: No Symptoms Hematology/Lymphatic: reports: No Symptoms Psychiatric: reports: No Symptoms Physical Exam Vital Signs: Vital Signs Temperature 99.5 F 12/12/19 10:00 Pulse Rate 98 H 12/12/19 10:00 Respiratory Rate 26 H 12/12/19 10:00 Blood Pressure 104/52 L 12/12/19 10:00 O2 Sat by Pulse Oximetry (%) 99 12/12/19 10:00 Constitutional: Yes: No Distress, Calm Eyes: Yes: Conjunctiva Clear, EOM Intact HENT: Yes: Atraumatic, Normocephalic Neck: Yes: Supple, Trachea Midline Cardiovascular: Yes: S1, S2 Respiratory: Yes: Regular, CTA Bilaterally Gastrointestinal: Yes: Normal Bowel Sounds, Soft Musculoskeletal: Yes: WNL Extremities: Yes: WNL Wound/Incision: Yes: Dressing Dry and Intact Neurological: Yes: Alert, Oriented Psychiatric: Yes: Alert, Oriented Labs: CBC, BMP 12/12/19 02:30 12/12/19 03:00 Imaging - Results Chest X-ray: Report Reviewed, Image Reviewed Assessment/Plan POD#3: S/P L1 laminectomy & inferior facetectomy/L2 laminectomy & superior and inferior facetectomies/L3 laminectomy & superior and inferior facetectomies/L4 laminectomy & superior and inferior facetectomies/L5 laminectomy & superior and inferior facetectomies/S1 laminectomy & superior facetectomy/L4-L5 discectomy, PLIF, and posterolateral arthrodesis/L5-S1 discectomy, PLIF, and posterolateral arthrodesis/Excision extensive left L2 nerve sheath tumor/Left L2-L3 Hernandez- Randle osteotomy L2-L3 Neurofibroma Lumbar Spinal Stenosis with Radiculopathy and Claudication HTN BUBBA on CPAP having increased blood draining from the drain plan continue current mgmt will start abx
--- NOTE | 2019-12-12 13:55 | PN ---
Physical Exam: SUBJECTIVE: Patient seen and examined. Overnight, patient was febrile to 101.4, with MAP in 40s. Three 1 L NS boluses and vanc & ceftriaxone were given. 200 mL of blood was drained from davol. Endorses back pain that is well-controlled with TOOL AND PRODUCTION PLANNER. Tylenol was given for headache. Denies flatus, n/v, BM. POD#2 OBJECTIVE: Vital Signs Period Temp Pulse Resp BP Sys/Connolly Pulse Ox Last 24 Hr 98.9 F-101.4 F 82-108 17-26 74-139/34-95 93-100 GENERAL: The patient is awake, alert, and fully oriented, in no acute distress. back pain HEENT: Normal with no signs of trauma. PERRL, EOMI, MMM LUNGS: Breath sounds equal, clear to auscultation bilaterally, no wheezes, no crackles, no accessory muscle use. HEART: Regular rate and rhythm, S1, S2 without murmur, rub or gallop. ABDOMEN: Obese Soft, nontender, not distended, hypoactive bowel sounds, no guarding, no rebound EXTREMITIES: 2+ pulses, warm, well-perfused. No peripheral edema. BACK: dressing along spine, Davol drain on Left side NEUROLOGICAL: Cranial nerves II through XII grossly intact. Normal speech, gait not observed. PSYCH: Normal mood, normal affect. Laboratory Results - last 24 hr 12/10/19 12/12/19 12/12/19 06:32 02:30 02:30 WBC RBC Hgb Hct MCV MCH MCHC RDW Plt Count MPV Absolute Neuts (auto) Neutrophils % Lymphocytes % Monocytes % Eosinophils % Basophils % Nucleated RBC % ESR 68 H Sodium Potassium Chloride Carbon Dioxide Anion Gap BUN Creatinine Est GFR (CKD-EPI)AfAm Est GFR (CKD-EPI)NonAf Random Glucose Lactic Acid Calcium Total Bilirubin AST ALT Alkaline Phosphatase C-Reactive Protein Total Protein Albumin Urine Color Dk yellow Urine Appearance Clear Urine pH 5.5 Ur Specific [place] 1.022 Urine Protein 1+ H Urine Glucose (UA) Negative Urine Ketones 3+ H Urine Blood 2+ H Urine Nitrite Negative Urine Bilirubin Negative Urine Urobilinogen 0.2 Ur Leukocyte Esterase Negative Urine WBC (Auto) 43 Urine RBC (Auto) 140 Urine Casts (Auto) 15 U Epithel Cells (Auto) 28 Urine Bacteria (Auto) 7 Crossmatch See Detail 10/09/2312/12/19 12/12/19 02:30 02:30 03:00 WBC 14.1 H RBC 3.03 L Hgb 8.7 L Hct 26.7 L MCV 88.2 MCH 28.9 MCHC 32.7 RDW 14.7 Plt Count 256 MPV 8.6 Absolute Neuts (auto) 11.3 H Neutrophils % 80.0 Lymphocytes % 13.0 Monocytes % 6.4 Eosinophils % 0.4 Basophils % 0.2 Nucleated RBC % 0 ESR Sodium 136 Potassium 3.5 Chloride 100 Carbon Dioxide 30 Anion Gap 5 L BUN 7.2 Creatinine 0.5 L Est GFR (CKD-EPI)AfAm 132.65 Est GFR (CKD-EPI)NonAf 114.45 Random Glucose 80 Lactic Acid 1.4 Calcium 8.1 L Total Bilirubin 0.6 AST 120 H ALT 41 Alkaline Phosphatase 57 C-Reactive Protein 23.4 H Total Protein 6.4 Albumin 2.8 L Urine Color Urine Appearance Urine pH Ur Specific [place] Urine Protein Urine Glucose (UA) Urine Ketones Urine Blood Urine Nitrite Urine Bilirubin Urine Urobilinogen Ur Leukocyte Esterase Urine WBC (Auto) Urine RBC (Auto) Urine Casts (Auto) U Epithel Cells (Auto) Urine Bacteria (Auto) Crossmatch Active Medications Generic Name Dose Route Start Last Admin Trade Name Freq PRN Reason Stop Dose Admin Artificial Tears 1 drop 12/11/19 05:34 Artificial Tears OU BID PRN DRY EYES Chlorhexidine Gluconate 1 applic 12/10/19 22:00 12/11/19 21:57 Hibiclens For Decolonization - TP 1 applic HS SH[facility]Y Administration Diazepam 5 mg 12/10/19 15:40 12/11/19 12:58 Valium Injection - IVPUSH 5 mg Q6H PRN Administration MUSCLE SPASMS Diphenhydramine HCl 12.5 mg 12/11/19 15:56 12/12/19 04:04 Benadryl Injection - IVPB 12.5 mg Q6H PRN Administration itching Hydromorphone HCl 10 mg 12/10/19 16:00 12/11/19 10:36 Hydromorphone 10 Mg/50 Ml-Ns TOOL AND PRODUCTION PLANNER 12/17/19 15:52 10 mg TOOL AND PRODUCTION PLANNER SHERRY Administration Protocol Sodium Chloride 1,000 mls @ 125 mls/hr 12/12/19 03:45 12/12/19 04:04 Normal Saline - IV 125 mls/hr ASDIR [facility]Y Administration Ceftriaxone Sodium 1 gm/ 50 mls @ 100 mls/hr 12/13/19 10:00 Dextrose IVPB DAILY [facility] Protocol Lisinopril 20 mg 12/10/19 22:00 12/11/19 21:57 Prinivil PO 20 mg HS [facility] Administration Mupirocin 1 applic 12/10/19 22:00 12/12/19 10:03 Bactroban Ointment (For Decolonization) - NS 12/15/19 21:59 1 applic BID [facility] Administration Ondansetron HCl 4 mg 12/10/19 15:40 Zofran Injection IVPUSH Q6H PRN NAUSEA AND/OR VOMITING ASSESSMENT/PLAN: 49 F PMH HTN & Sleep apnea (on CPAP) admitted to ICU for post-operative management for L1-S1 laminectomies & facetectomies, left L2-L3 Hernandez-Randle osteotomy, excisional biopsy L2-L3 neurofibroma, L4-L5 PLIF (Posterior Lumbar Interbody Fusion (PLIF), & L5-S1 PLIF, T12-S1 posterior instrumented spinal fusion POD #2. Neuro -per Ortho note, NO NSAID's. Currently on hydromorphone 10 mg TOOL AND PRODUCTION PLANNER. transition to oral analgesia post-op once patient is no longer NPO -PT/OT/Rehab, OOB. -WBAT B/L LE. -No bending, lifting (>5 lbs), or twisting for 9-12 months. -Spine X-ray: posterior fusion from T12 through the upper sacrum. Lower laminectomies. SI joints are patent. There are Right upper quadrant clips and a drain -ordered toradol per Dr. Randle for headache Cardio #HTN Continue with home lisinopril 20 mg PO HS Pulm -Incentive spirometry q15 min. Encourage incentive spirometry use #BUBBA -on CPAP at home -CXR: elevated right hemidiaphragm with prominent mediastinum & congestive changes GI Zofran 4 mg IV push Q6H PRN for Nausea/vomiting -AST elevated at 120. ALT 41. Will trend Heme #Leukocytosis likely reactive: WBCs 15 #Normocytic anemia: Hgb/Hct decreased from 9.1/27.4. Likely 2/2 dilution from three 1 L NS fluid boluses given overnight for hypotension -estimated blood loss during procedure was 550 ml Renal -UA: 1+ protein, 3+ ketones, 2+ blood, 140 RBCs ID -COVID neg #sepsis -fever 101.4, MAP 40s, WBC 14.1, HR 101 -CRP 23.4, ESR 68 -s/p vanc & ceftriaxone and three 1 L NS fluid boluses by overnight team -started cefazolin 1 gm Q8H -CXR: elevated right hemidiaphragm with prominent mediastinum & congestive changes -UA: negative for leuk esterase, 7 bacteria -f/u urine/blood cultures DVT PPX -Mechanical only: DARRELL's, SCD's. -Chemical: None. FEN LR@125 ml/hr -Monitor lytes -NPO until flatus. DISPO -ICU -Elena Damon if pt needs rehab; f/u 7-10 days after rehab (or hospital) discharge at [facility] office; call for appointment; [phone]. Visit type - Emergency Visit Emergency Visit: Yes ED Registration Date: 12/10/19 Care time: The patient presented to the Emergency Department on the above date and was hospitalized for further evaluation of their emergent condition. - New Patient This patient is new to me today: No - Critical Care Critical Care patient: Yes Total Critical Care Time (in minutes): 36 Critical Care Statement: The care of this patient involved high complexity decision making to prevent further life threatening deterioration of the patient's condition and/or to evaluate & treat vital organ system(s) failure or risk of failure. ATTENDING PHYSICIAN STATEMENT I saw and evaluated the patient. I reviewed the resident's note and discussed the case with the resident. I agree with the resident's findings and plan as documented. SUBJECTIVE: OBJECTIVE: ASSESSMENT AND PLAN:
[2019-12-12] MEDS: CEFAZOLIN 1 GM/D5W 1 GM/50 ML BAG IVPB SCH ×2 (15:53→19:46)
[2019-12-12] MEDS: KETOROLAC TROMETHAMINE 30 MG/1 ML VIAL IM ONE ×2 (16:28→19:50)
[2019-12-12] MEDS ORDERED: KETOROLAC TROMETHAMINE 30 MG/1 ML VIAL IVPUSH ONE (16:30)
--- NOTE | 2019-12-12 17:35 | PATH ---
Surgical Pathology Report Patient Name: PELON CHOU [facility]. Rec. #: [id number] /Age/Gender: 1970 (Age: 49) / F Account: [id number] Location: [facility] Taken: 12/10/2019 Received: 12/10/2019 Reported: 12/12/2019 Physicians: Emely Vásquez M.D. Specimen(s) Received A: LEFT L4-5 FACET CYST B: LEFT L2-3 NERVE SHEATH TUMOR C: LEFT L2-3 NERVE SHEATH TUMOR D: L4-5, L5-S1 Clinical History Left L4-5 facet cyst, radiculopathy Intraoperative Consult Diagnosis B. 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 No mitosis identified on food service sales representatives sections. Blanca Cardenas M.D., 12/10/2019 Final Diagnosis A. L4-5, FACET CYST, LEFT, EXCISION: CONSISTENT WITH SYNOVIAL FACET CYST WITH ASSOCIATED OLD HEMORRHAGE AND REACTIVE CHANGES. B. 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 SEE COMMENT. C. L2-3 NERVE SHEATH TUMOR, LEFT, EXCISION: SCHWANNOMA. SEE COMMENT. D. L4-5, L5-S1, DISC, DISCECTOMY: BENIGN INTERVERTEBRAL DISC TISSUE AND BONE. Comment: Part B and C, The neoplasm is vaguely nodular and comprised of compact spindle cells with tapered nuclei, alternating with hypocellular areas. Rare nuclear pseudo-inclusions are noted. No significant cytologic atypia, necrosis, increased cellularity, or mitosis identified. Immunohistochemical stain(s) performed and interpreted at [facility] show the neoplasm is diffusely and strongly positive for S100. Histomorphology and immunophenotype support the diagnosis of schwannoma. Positive and negative controls (internal if applicable) show appropriate results. Electronically Signed Malgorzata Londono M.D. Gross Description A. Received fresh labeled "left L4-5 facet cyst," is a 0.6 x 0.5 x 0.5 cm lopez-pink nodule. The cut surface displays lopez-pink, solid parenchyma. No definitive cyst lumen is identified. The specimen is bisected. No frozen section is needed as per Dr. Randle. The specimen is entirely submitted in one cassette. B. Received fresh labeled "left L2-3 nerve sheath tumor," is a 2.1 x 1.8 x 0.3 cm aggregate of homogeneous lopez soft tissue fragments admixed with possible bony fragments. A food service sales representatives portion is submitted for frozen section. The specimen is entirely submitted in 2 cassettes as follows: 1-frozen section residue; 2-remaining tissue, following decalcification. C. Received in formalin labeled "left L2-3 nerve sheath tumor," is a 7.0 x 4.5 x 1.3 cm aggregate of abundant lopez-yellow and jesus, irregular fragments of fibrofatty soft tissue. The larger portions are sectioned and the specimen is entirely submitted in 8 cassettes. D. Received in formalin labeled "L4-5, L5-S1 disc," is a 5.5 x 3.5 x 0.8 cm aggregate of lopez jesus fragments of fibrocartilaginous tissue. A food service sales representatives portion is submitted in one cassette. 12/10/2019 saudi12/10/2019
--- NOTE | 2019-12-12 18:27 | PN ---
Progress Note (short form) - Note Progress Note: POD #2 In ICU Doing well considering this extensive surgical intervention Pyrexial mild and related to surgical trauma. Obesity contributes to Atelectasis Has walked 2 times today Vitals as per ICU record and stable CVS stable normal tissue perfusion normal urine output mentation normal RESP Clear no endobronchial secretions ABD Soft No flatus as yet MSkeletal Bandage dry NEURO Fully intact ASSESS Doing remarkably well well this undertaking PLAN Mobilize FWBAT with PT ID recommendations for the fever Pain MX Clear fluids only
[2019-12-12] MEDS: LACTATED RINGERS SOLUTION 1,000 ML IV SCH (19:34)
[2019-12-12] MEDS: LISINOPRIL 20 MG TABLET PO SCH (21:24)
[2019-12-12] MEDS: CHLORHEXIDINE GLUCONATE 4% CLEANSER FOR DECOLONIZATION TP SCH (21:25)
[2019-12-13] MEDS: CEFAZOLIN 1 GM/D5W 1 GM/50 ML BAG IVPB SCH ×3 (02:05→18:29)
[2019-12-13 07:03] LABS: HEMATOCRIT 20.2 % (32.4-45.2); MCH 29.5 pg (25.7-33.7); MCHC 33.6 g/dl (32.0-36.0); MEAN CELL VOLUME 87.6 fl (80-96); MEAN PLT VOLUME 8.4 fl (7.5-11.1); PLATELET COUNT 178 K/MM3 (134-434); RDW 14.4 % (11.6-15.6); WHITE BLOOD COUNT 9.6 K/mm3 (4.0-10.0)
[2019-12-13 07:04] LABS: ALK PHOS 53 U/L (45-117); ANION GAP 4 MMOL/L (8-16); BILIRUBIN,TOTAL 0.4 mg/dL (0.2-1); BLOOD UREA NITROGEN 6.9 mg/dL (7-18); CALCIUM 7.5 mg/dL (8.5-10.1); CHLORIDE 108 mmol/L (98-107); CO2 29 mmol/L (21-32); CREATININE 0.3 mg/dL (0.55-1.3); GLUCOSE,RANDOM 83 mg/dL (74-106); MAGNESIUM 1.6 mg/dL (1.8-2.4); POTASSIUM 3.4 mmol/L (3.5-5.1); SGOT/AST 64 U/L (15-37); SGPT/ALT 26 U/L (13-61); SODIUM 140 mmol/L (136-145); TOT PROT 4.9 g/dl (6.4-8.2)
[2019-12-13 07:22] LABS: HEMOGLOBIN 6.8 GM/dL (10.7-15.3)
[2019-12-13] MEDS ORDERED: ACETAMINOPHEN 1000 MG/100 ML VIAL (NON FORMULARY) IVPB ONE ×2 (07:43→22:14)
[2019-12-13 09:23] LABS: HEMATOCRIT 20.6 % (32.4-45.2); MCH 29.1 pg (25.7-33.7); MEAN PLT VOLUME 8.5 fl (7.5-11.1); PLATELET COUNT 179 K/MM3 (134-434); RBC 2.35 M/mm3 (3.60-5.2); RDW 14.6 % (11.6-15.6); WHITE BLOOD COUNT 10.1 K/mm3 (4.0-10.0)
[2019-12-13 09:34] LABS: HEMOGLOBIN 6.8 GM/dL (10.7-15.3)
[2019-12-13 09:47] LABS: BILIRUBIN,TOTAL 0.3 mg/dL (0.2-1); BLOOD UREA NITROGEN 5.8 mg/dL (7-18); CALCIUM 7.4 mg/dL (8.5-10.1); CREATININE 0.3 mg/dL (0.55-1.3); MAGNESIUM 1.7 mg/dL (1.8-2.4); PHOSPHOROUS 1.9 mg/dL (2.5-4.9); POTASSIUM 3.3 mmol/L (3.5-5.1); TOT PROT 5.2 g/dl (6.4-8.2)
[2019-12-13] MEDS ORDERED: CEFTRIAXONE 1 GM in DEXTROSE 5%-WATER - 50 ML IVPB SCH (10:00)
[2019-12-13 10:42] LABS: ERYTHROCYTE SEDIMENTATION RATE 92 mm/hr (0-20)
[2019-12-13] MEDS: MUPIROCIN 2% TOPICAL OINTMENT FOR DECOLONIZATION NS SCH ×2 (10:50→21:57)
--- NOTE | 2019-12-13 10:51 | PN ---
Progress Note (short form) - Note Progress Note: Anesthesiology Pain Management Note Patient seen, doing well with current pain regimen, tolerating clears, will convert from laboratory worker to oral analgesics, with iv bolus for breakthrough. patient states does poorly with most opioids, will continue with dilaudid PO and IV. De [facility] of anesthesiology [facility] time
--- NOTE | 2019-12-13 11:21 | PN ---
Teaching Attending Note Name of Resident: Kostas Douglas ATTENDING PHYSICIAN STATEMENT I saw and evaluated the patient. I reviewed the resident's note and discussed the case with the resident. I agree with the resident's findings and plan as documented. SUBJECTIVE: Patient seen and examined in the ICU. Pain better controlled with WINDERMAN. No CP or SOB. Noted drop in H&H. Increased blood loss from drain recorded. Temperature curve improving. OBJECTIVE: Intake & Output 12/10/19 12/11/19 12/12/19 12/13/19 23:59 23:59 23:59 23:59 Intake Total 2425 3350 4800 Output Total 688 211 0730 Balance 1485 2380 2900 Weight 239 lb 4 oz 239 lb Last Vital Signs Temp Pulse Resp BP Pulse Ox 98.4 F 99 H 23 H 91/68 92 L 12/13/19 10:00 12/13/19 10:00 12/13/19 10:00 12/13/19 10:00 12/13/19 10:00 Active Medications Artificial Tears (Artificial Tears) 1 drop OU BID PRN PRN Reason: DRY EYES Chlorhexidine Gluconate (Hibiclens For Decolonization -) 1 applic TP HS SHERRY Last Admin: 12/12/19 21:25 Dose: 1 applic Documented by: Diazepam (Valium Injection -) 5 mg IVPUSH Q6H PRN PRN Reason: MUSCLE SPASMS Last Admin: 12/11/19 12:58 Dose: 5 mg Documented by: Diphenhydramine HCl (Benadryl Injection -) 25 mg IVPB Q6H PRN PRN Reason: itching Last Admin: 12/13/19 02:05 Dose: 25 mg Documented by: Hydromorphone HCl (Dilaudid -) 4 mg PO Q4H PRN PRN Reason: PAIN LEVEL 6-10 Hydromorphone HCl (Dilaudid Injection -) 2 mg IVPB Q4H PRN PRN Reason: PAIN LEVEL 6-10 Sodium Chloride (Normal Saline -) 1,000 mls @ 125 mls/hr IV ASDIR SHERRY Last Admin: 12/12/19 22:11 Dose: 125 mls/hr Documented by: Cefazolin Sodium (Ancef 1 Gm Premixed Ivpb -) 1 gm in 50 mls @ 100 mls/hr IVPB Q8H-IV SHERRY Last Admin: 12/13/19 02:05 Dose: 100 mls/hr Documented by: Lisinopril (Prinivil) 20 mg PO HS SHERRY Last Admin: 12/12/19 21:24 Dose: 20 mg Documented by: Mupirocin (Bactroban Ointment (For Decolonization) -) 1 applic NS BID SH[facility]Y Stop: 12/15/19 21:59 Last Admin: 12/12/19 21:25 Dose: 1 applic Documented by: Ondansetron HCl (Zofran Injection) 4 mg IVPUSH Q6H PRN PRN Reason: NAUSEA AND/OR VOMITING Gen: NAD in chair Heart: RRR Lung: decreased breath sounds at the bases Back: Dressing intact, Drain intact with dark blood Abd: soft, nontender Ext: no edema LOCK TENDER: Non-focal Laboratory Results - last 24 hr 12/13/19 12/13/19 12/13/19 05:12 06:00 08:16 WBC 9.6 10.1 H RBC 2.30 L 2.35 L Hgb 6.8 L* 6.8 L* Hct 20.2 L D 20.6 L MCV 87.6 88.0 MCH 29.5 29.1 MCHC 33.6 33.0 RDW 14.4 14.6 Plt Count 178 D 179 MPV 8.4 8.5 ESR 92 H Sodium 140 Potassium 3.4 L Chloride 108 H Carbon Dioxide 29 Anion Gap 4 L BUN 6.9 L Creatinine 0.3 L Est GFR (CKD-EPI)AfAm 156.92 Est GFR (CKD-EPI)NonAf 135.39 Random Glucose 83 Calcium 7.5 L Phosphorus 2.0 L Magnesium 1.6 L Total Bilirubin 0.4 AST 64 H ALT 26 Alkaline Phosphatase 53 C-Reactive Protein > 19.0 H Total Protein 4.9 L Albumin 2.0 L 12/13/19 08:16 WBC RBC Hgb Hct MCV MCH MCHC RDW Plt Count MPV ESR Sodium 140 Potassium 3.3 L Chloride 106 Carbon Dioxide 27 Anion Gap 7 L BUN 5.8 L Creatinine 0.3 L Est GFR (CKD-EPI)AfAm 156.92 Est GFR (CKD-EPI)NonAf 135.39 Random Glucose 86 Calcium 7.4 L Phosphorus 1.9 L Magnesium 1.7 L Total Bilirubin 0.3 AST 63 H ALT 28 Alkaline Phosphatase 59 C-Reactive Protein Total Protein 5.2 L Albumin 2.0 L ASSESSMENT AND PLAN: POD#3: S/P L1 laminectomy & inferior facetectomy/L2 laminectomy & superior and inferior facetectomies/L3 laminectomy & superior and inferior facetectomies/L4 laminectomy & superior and inferior facetectomies/L5 laminectomy & superior and inferior facetectomies/S1 laminectomy & superior facetectomy/L4-L5 discectomy, PLIF, and posterolateral arthrodesis/L5-S1 discectomy, PLIF, and posterolateral arthrodesis/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
[2019-12-13] MEDS ORDERED: PCA PUMP NR ONE (14:00)
--- NOTE | 2019-12-13 14:32 | PN ---
Progress Note, Physician History of Present Illness: dropped h and h afebrile discomfort - Current Medication List Current Medications: Active Medications Artificial Tears (Artificial Tears) 1 drop OU BID PRN PRN Reason: DRY EYES Chlorhexidine Gluconate (Hibiclens For Decolonization -) 1 applic TP [facility] Last Admin: 12/12/19 21:25 Dose: 1 applic Documented by: Diazepam (Valium Injection -) 5 mg IVPUSH Q6H PRN PRN Reason: MUSCLE SPASMS Last Admin: 12/11/19 12:58 Dose: 5 mg Documented by: Diphenhydramine HCl (Benadryl Injection -) 25 mg IVPB Q6H PRN PRN Reason: itching Last Admin: 12/13/19 10:50 Dose: 25 mg Documented by: Hydromorphone HCl (Dilaudid Vial -) 2 mg IVPB Q4H PRN PRN Reason: PAIN LEVEL 6-10 Hydromorphone HCl (Dilaudid -) 4 mg PO Q4H PRN PRN Reason: PAIN LEVEL 4 - 6 Sodium Chloride (Normal Saline -) 1,000 mls @ 125 mls/hr IV [facility] Last Admin: 12/12/19 22:11 Dose: 125 mls/hr Documented by: Cefazolin Sodium (Ancef 1 Gm Premixed Ivpb -) 1 gm in 50 mls @ 100 mls/hr IVPB Q8H-IV [facility] Last Admin: 12/13/19 11:00 Dose: 100 mls/hr Documented by: Lisinopril (Prinivil) 20 mg PO [facility] Last Admin: 12/12/19 21:24 Dose: 20 mg Documented by: Mupirocin (Bactroban Ointment (For Decolonization) -) 1 applic NS BID [facility] Stop: 12/15/19 21:59 Last Admin: 12/13/19 10:50 Dose: 1 applic Documented by: Ondansetron HCl (Zofran Injection) 4 mg IVPUSH Q6H PRN PRN Reason: NAUSEA AND/OR VOMITING - Objective Vital Signs: Vital Signs Temperature 99.1 F 12/13/19 13:35 Pulse Rate 95 H 12/13/19 13:51 Respiratory Rate 24 H 12/13/19 13:51 Blood Pressure 114/57 L 12/13/19 13:51 O2 Sat by Pulse Oximetry (%) 100 12/13/19 13:51 Constitutional: Yes: Calm, Mild Distress, Obese Cardiovascular: Yes: S1, S2 Respiratory: Yes: Regular, CTA Bilaterally Gastrointestinal: Yes: Normal Bowel Sounds, Soft Musculoskeletal: Yes: WNL Extremities: Yes: WNL Wound/Incision: Yes: Dressing Dry and Intact Neurological: Yes: Alert, Oriented Psychiatric: Yes: Alert, Oriented Labs: CBC, BMP 12/13/19 08:16 12/13/19 08:16 Assessment/Plan POD#3: S/P L1 laminectomy & inferior facetectomy/L2 laminectomy & superior and inferior facetectomies/L3 laminectomy & superior and inferior facetectomies/L4 laminectomy & superior and inferior facetectomies/L5 laminectomy & superior and inferior facetectomies/S1 laminectomy & superior facetectomy/L4-L5 discectomy, PLIF, and posterolateral arthrodesis/L5-S1 discectomy, PLIF, and posterolateral arthrodesis/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
--- NOTE | 2019-12-13 14:53 | PN ---
Physical Exam: SUBJECTIVE: Patient seen and examined. Endorses that her back pain has improved greatly since yesterday. Endorses passing gas and feeling gas in her abdomen. Denies nausea, vomiting, BM's. OBJECTIVE: Vital Signs Period Temp Pulse Resp BP Sys/Connolly Pulse Ox Last 24 Hr 98.3 F-99.8 F 87-102 14-25 91-129/48-68 92-100 GENERAL: The patient is awake, alert, and fully oriented, in no acute distress. back pain HEENT: Normal with no signs of trauma. PERRL, EOMI, MMM LUNGS: Breath sounds equal, clear to auscultation bilaterally, no wheezes, no crackles, no accessory muscle use. HEART: Regular rate and rhythm, S1, S2 without murmur, rub or gallop. ABDOMEN: Obese Soft, nontender, not distended, hypoactive bowel sounds, no guarding, no rebound EXTREMITIES: 2+ pulses, warm, well-perfused. No peripheral edema. BACK: dressing along spine, Davol drain on Left side NEUROLOGICAL: Cranial nerves II through XII grossly intact. Normal speech, gait not observed. PSYCH: Normal mood, normal affect. Laboratory Results - last 24 hr 12/10/19 12/13/19 12/13/19 06:32 05:12 06:00 WBC 9.6 RBC 2.30 L Hgb 6.8 L* Hct 20.2 L D MCV 87.6 MCH 29.5 MCHC 33.6 RDW 14.4 Plt Count 178 D MPV 8.4 ESR 92 H Sodium 140 Potassium 3.4 L Chloride 108 H Carbon Dioxide 29 Anion Gap 4 L BUN 6.9 L Creatinine 0.3 L Est GFR (CKD-EPI)AfAm 156.92 Est GFR (CKD-EPI)NonAf 135.39 Random Glucose 83 Calcium 7.5 L Phosphorus 2.0 L Magnesium 1.6 L Total Bilirubin 0.4 AST 64 H ALT 26 Alkaline Phosphatase 53 C-Reactive Protein > 19.0 H Total Protein 4.9 L Albumin 2.0 L Blood Type Antibody Screen Crossmatch See Detail 12/13/19 12/13/19 12/13/19 08:16 08:16 11:50 WBC 10.1 H RBC 2.35 L Hgb 6.8 L* Hct 20.6 L MCV 88.0 MCH 29.1 MCHC 33.0 RDW 14.6 Plt Count 179 MPV 8.5 ESR Sodium 140 Potassium 3.3 L Chloride 106 Carbon Dioxide 27 Anion Gap 7 L BUN 5.8 L Creatinine 0.3 L Est GFR (CKD-EPI)AfAm 156.92 Est GFR (CKD-EPI)NonAf 135.39 Random Glucose 86 Calcium 7.4 L Phosphorus 1.9 L Magnesium 1.7 L Total Bilirubin 0.3 AST 63 H ALT 28 Alkaline Phosphatase 59 C-Reactive Protein Total Protein 5.2 L Albumin 2.0 L Blood Type AB POSITIVE Antibody Screen Negative Crossmatch See Detail Active Medications Generic Name Dose Route Start Last Admin Trade Name Freq PRN Reason Stop Dose Admin Artificial Tears 1 drop 12/11/19 05:34 Artificial Tears OU BID PRN DRY EYES Chlorhexidine Gluconate 1 applic 12/10/19 22:00 12/12/19 21:25 Hibiclens For Decolonization - TP 1 applic HS SHERRY Administration Diazepam 5 mg 12/10/19 15:40 12/11/19 12:58 Valium Injection - IVPUSH 5 mg Q6H PRN Administration MUSCLE SPASMS Diphenhydramine HCl 25 mg 12/13/19 01:11 12/13/19 10:50 Benadryl Injection - IVPB 25 mg Q6H PRN Administration itching Hydromorphone HCl 2 mg 12/13/19 10:48 Dilaudid Vial - IVPB Q4H PRN PAIN LEVEL 6-10 Hydromorphone HCl 4 mg 12/13/19 12:52 Dilaudid - PO Q4H PRN PAIN LEVEL 4 - 6 Sodium Chloride 1,000 mls @ 125 mls/hr 12/12/19 03:45 12/12/19 22:11 Normal Saline - IV 125 mls/hr ASDIR SHERRY Administration Cefazolin Sodium 1 gm in 50 mls @ 100 mls/hr 12/12/19 13:45 12/13/19 11:00 Ancef 1 Gm Premixed Ivpb - IVPB 100 mls/hr Q8H-IV SHERRY Administration Lisinopril 20 mg 12/10/19 22:00 12/12/19 21:24 Prinivil PO 20 mg HS SHERRY Administration Mupirocin 1 applic 12/10/19 22:00 12/13/19 10:50 Bactroban Ointment (For Decolonization) - NS 12/15/19 21:59 1 applic BID SHERRY Administration Ondansetron HCl 4 mg 12/10/19 15:40 Zofran Injection IVPUSH Q6H PRN NAUSEA AND/OR VOMITING ASSESSMENT/PLAN: 49 F PMH HTN & Sleep apnea (on CPAP) admitted to ICU for post-operative management for L1-S1 laminectomies & facetectomies, left L2-L3 Hernandez-Randle osteotomy, excisional biopsy L2-L3 neurofibroma, L4-L5 PLIF (Posterior Lumbar Interbody Fusion (PLIF), & L5-S1 PLIF, T12-S1 posterior instrumented spinal fusion POD #3. Neuro -per Ortho note, NO NSAID's. Because patient passed gas and is now tolerating clear liquid diet, the VIDEOTAPE RECORDING ENGINEER was converted to dilaudid PO and IV. -PT/OT/Rehab, OOB. -WBAT B/L LE. -No bending, lifting (>5 lbs), or twisting for 9-12 months. -Spine X-ray: posterior fusion from T12 through the upper sacrum. Lower laminectomies. SI joints are patent. There are Right upper quadrant clips and a drain Cardio #HTN Continue with home lisinopril 20 mg PO HS Pulm -Incentive spirometry q15 min. Encourage incentive spirometry use #BUBBA -on CPAP at home -CXR (12/11) : elevated right hemidiaphragm with prominent mediastinum & congestive changes GI Zofran 4 mg IV push Q6H PRN for Nausea/vomiting -AST/ ALT trended down from 120/41 to 64/26. Heme #Leukocytosis resolved. Trended down from 14.1 to 9.6 #Normocytic anemia: Hgb/Hct 6.8/20.6. MCV 88. CBC was repeated to ensure that the labs were accurate. 1 unit of PRBC were ordered. 400 mL sanguineous fluid drained from the Davol drain. Dr. Randle's service was called to inform of the patient's anemia. Renal -UA: 1+ protein, 3+ ketones, 2+ blood, 140 RBCs ID -COVID neg #sepsis -on 12/11, fever 101.4, MAP 40s, WBC 14.1, HR 101. s/p vanc & ceftriaxone and three 1 L NS fluid boluses - continue with cefazolin 1 gm Q8H -CRP trended down from 23.4 to 19 -CXR (12/11) : elevated right hemidiaphragm with prominent mediastinum & congestive changes -UA: negative for leuk esterase, 7 bacteria -urine/blood cultures X 2 (12/12/19) shows no growth DVT PPX -Mechanical only: DARRELL's, SCD's. -Chemical: None. FEN NS@125 ml/hr -Monitor lytes -clear liquid DISPO -ICU -Elena Damon if pt needs rehab; f/u 7-10 days after rehab (or hospital) discharge at [facility] office; call for appointment; [phone]. Visit type - Emergency Visit Emergency Visit: Yes ED Registration Date: 12/10/19 Care time: The patient presented to the Emergency Department on the above date and was hospitalized for further evaluation of their emergent condition. - New Patient This patient is new to me today: No - Critical Care Critical Care patient: Yes Total Critical Care Time (in minutes): 35 Critical Care Statement: The care of this patient involved high complexity decision making to prevent further life threatening deterioration of the patient's condition and/or to evaluate & treat vital organ system(s) failure or risk of failure. ATTENDING PHYSICIAN STATEMENT I saw and evaluated the patient. I reviewed the resident's note and discussed the case with the resident. I agree with the resident's findings and plan as documented. SUBJECTIVE: OBJECTIVE: ASSESSMENT AND PLAN:
[2019-12-13] MEDS ORDERED: MAGNESIUM OXIDE 400 MG TABLET (FP) PO ONE (14:54)
[2019-12-13] MEDS ORDERED: POTASSIUM PHOSPHATE 20 MM in SODIUM CHLORIDE 250 ML IVPB ONE (14:55)
[2019-12-13] MEDS ORDERED: KCL 10 MEQ IVPB 10 MEQ/100 ML INFUS.BAG IVPB SCH (15:00)
[2019-12-13] MEDS: HYDROmorphone HCl 2 MG/ML VIAL IVPB PRN ×2 (16:44→21:57)
[2019-12-13] MEDS: POTASSIUM CHLORIDE TABS 20 MEQ TABLET.ER (FP) PO ONE ×2 (16:46→17:26)
[2019-12-13 20:39] LABS: HEMATOCRIT 22.8 % (32.4-45.2); HEMOGLOBIN 7.8 GM/dL (10.7-15.3); MCH 30.1 pg (25.7-33.7); MCHC 34.2 g/dl (32.0-36.0); MEAN CELL VOLUME 88.1 fl (80-96); MEAN PLT VOLUME 8.7 fl (7.5-11.1); PLATELET COUNT 194 K/MM3 (134-434); RBC 2.59 M/mm3 (3.60-5.2); RDW 14.1 % (11.6-15.6); WHITE BLOOD COUNT 10.3 K/mm3 (4.0-10.0)
[2019-12-13] MEDS: CHLORHEXIDINE GLUCONATE 4% CLEANSER FOR DECOLONIZATION TP SCH (21:57)
[2019-12-13] MEDS: LISINOPRIL 20 MG TABLET PO SCH (21:57)
[2019-12-14] MEDS: CEFAZOLIN 1 GM/D5W 1 GM/50 ML BAG IVPB SCH ×2 (02:21→09:14)
[2019-12-14] MEDS ORDERED: SIMETHICONE 40 MG/0.6 ML BOTTLE PO ONE (04:05)
[2019-12-14] MEDS: HYDROmorphone HCl 2 MG/ML VIAL IVPB PRN (04:31)
[2019-12-14] MEDS: ONDANSETRON 4 MG/2 ML VIAL IVPUSH PRN ×3 (04:38→20:32)
[2019-12-14] MEDS: SODIUM CHLORIDE 1,000 ML IV SCH (04:39)
[2019-12-14 07:40] LABS: BLOOD UREA NITROGEN 5.4 mg/dL (7-18); CALCIUM 7.2 mg/dL (8.5-10.1); POTASSIUM 3.6 mmol/L (3.5-5.1)
[2019-12-14 07:46] LABS: ALBUMIN 1.9 g/dl (3.4-5.0); BILIRUBIN,TOTAL 0.4 mg/dL (0.2-1); CREATININE 0.3 mg/dL (0.55-1.3); MAGNESIUM 1.5 mg/dL (1.8-2.4); PHOSPHOROUS 2.9 mg/dL (2.5-4.9); TOT PROT 5.3 g/dl (6.4-8.2)
[2019-12-14 07:48] LABS: HEMOGLOBIN 7.8 GM/dL (10.7-15.3); MCH 29.4 pg (25.7-33.7); MCHC 33.8 g/dl (32.0-36.0); MEAN CELL VOLUME 87.2 fl (80-96); MEAN PLT VOLUME 8.5 fl (7.5-11.1); PLATELET COUNT 229 K/MM3 (134-434); RBC 2.63 M/mm3 (3.60-5.2); RDW 14.1 % (11.6-15.6); WHITE BLOOD COUNT 9.3 K/mm3 (4.0-10.0)
[2019-12-14] MEDS ORDERED: MAGNESIUM OXIDE 400 MG TABLET (FP) PO ONE (08:50)
[2019-12-14] MEDS: POLYETHYLENE GLYCOL 3350 119 GM BTL PO SCH (09:19)
[2019-12-14] MEDS: MUPIROCIN 2% TOPICAL OINTMENT FOR DECOLONIZATION NS SCH ×2 (10:06→21:38)
--- NOTE | 2019-12-14 11:30 | PN ---
Progress Note (short form) - Note Progress Note: Surgery: Pt states that her headache has imrpoved. She was developing a headache with positional changes, like oob to chair and standing. Today, this pain has improved. She passed a small amount of flatus several times, No BM. Vital Signs Period Temp Pulse Resp BP Sys/Connolly Pulse Ox Last 24 Hr 98.1 F-100.4 F 86-101 15-24 106-129/52-74 98-100 KANCHAN: 32 ml-drain removed with the tip intact GEN: A&0x3, NAD Neuro: 5/5 dorsi/plantar flexion/EHL b/l. LE no calf tenderness or swelling noted b/l. SCDs in place. Back: Dressing c/d/i CBC, BMP 12/14/19 05:20 12/14/19 05:20 A/p: 49 yo female s/p T12-S1 laminectomy/decompression, debulking of nerve shealth tumor L2/3 with T12-S1 posterior fusion, POD#4 Pt seen today with Dr. Randle and the drain was removed Plan for Transfuse of PRBC today Continue OOB to chair/ambulate with PT Discontinue IV fluids Add Dilaudid SQ to pain management plan Stool softners
--- NOTE | 2019-12-14 11:38 | PN ---
Teaching Attending Note Name of Resident: Kostas Douglas ATTENDING PHYSICIAN STATEMENT I saw and evaluated the patient. I reviewed the resident's note and discussed the case with the resident. I agree with the resident's findings and plan as documented. SUBJECTIVE: Patient seen and examined in the ICU. Pain seems adequately controlled. Weeping as there was a in the family (suicide). No CP or SOB. H&H stable. Epistaxis overnight that improved with humidifying her nasal O2. OBJECTIVE: Intake & Output 12/11/19 12/12/19 12/13/19 12/14/19 23:59 23:59 23:59 23:59 Intake Total 3350 4800 1619.2 1620 Output Total 970 1900 361 32 Balance 2380 2900 1258.2 1588 Weight 239 lb 4 oz 239 lb 239 lb Last Vital Signs Temp Pulse Resp BP Pulse Ox 98.6 F 86 16 116/60 100 12/14/19 06:00 12/14/19 06:00 12/14/19 06:00 12/14/19 06:00 12/14/19 06:00 Active Medications Artificial Tears (Artificial Tears) 1 drop OU BID PRN PRN Reason: DRY EYES Chlorhexidine Gluconate (Hibiclens For Decolonization -) 1 applic TP HS [facility] Last Admin: 12/13/19 21:57 Dose: 1 applic Documented by: Diazepam (Valium Injection -) 5 mg IVPUSH Q6H PRN PRN Reason: MUSCLE SPASMS Last Admin: 12/11/19 12:58 Dose: 5 mg Documented by: Diphenhydramine HCl (Benadryl Injection -) 12.5 mg IVPB Q6H PRN PRN Reason: itching Last Admin: 12/14/19 00:51 Dose: 12.5 mg Documented by: Hydromorphone HCl (Dilaudid Vial -) 2 mg IVPB Q4H PRN PRN Reason: PAIN LEVEL 6-10 Last Admin: 12/14/19 04:31 Dose: 2 mg Documented by: Hydromorphone HCl (Dilaudid -) 4 mg PO Q4H PRN PRN Reason: PAIN LEVEL 4 - 6 Last Admin: 12/14/19 02:28 Dose: 4 mg Documented by: Cefazolin Sodium (Ancef 1 Gm Premixed Ivpb -) 1 gm in 50 mls @ 100 mls/hr IVPB Q8H-IV [facility] Last Admin: 12/14/19 09:14 Dose: 100 mls/hr Documented by: Lisinopril (Prinivil) 20 mg PO HS SHERRY Last Admin: 12/13/19 21:57 Dose: 20 mg Documented by: Mupirocin (Bactroban Ointment (For Decolonization) -) 1 applic NS BID [facility] Stop: 12/15/19 21:59 Last Admin: 12/13/19 21:57 Dose: 1 applic Documented by: Ondansetron HCl (Zofran Injection) 4 mg IVPUSH Q6H PRN PRN Reason: NAUSEA AND/OR VOMITING Last Admin: 12/14/19 04:38 Dose: 4 mg Documented by: Polyethylene Glycol (Miralax (For Daily Use) -) 17 gm PO DAILY SHERRY Last Admin: 12/14/19 09:19 Dose: 17 gm Documented by: Gen: Weeping, NAD in bed Heart: RRR Lung: decreased breath sounds at the bases Back: Dressing intact, Drain intact with dark blood Abd: soft, nontender Ext: no edema STARTER MECHANIC: Non-focal Laboratory Results - last 24 hr 12/10/19 12/13/19 12/13/19 06:32 11:50 20:12 WBC 10.3 H RBC 2.59 L Hgb 7.8 L Hct 22.8 L MCV 88.1 MCH 30.1 MCHC 34.2 RDW 14.1 Plt Count 194 MPV 8.7 Sodium Potassium Chloride Carbon Dioxide Anion Gap BUN Creatinine Est GFR (CKD-EPI)AfAm Est GFR (CKD-EPI)NonAf Random Glucose Calcium Phosphorus Magnesium Total Bilirubin AST ALT Alkaline Phosphatase Total Protein Albumin Blood Type AB POSITIVE Antibody Screen Negative Crossmatch See Detail See Detail 12/14/19 12/14/19 05:20 05:20 WBC 9.3 RBC 2.63 L Hgb 7.8 L Hct 23.0 L MCV 87.2 MCH 29.4 MCHC 33.8 RDW 14.1 Plt Count 229 MPV 8.5 Sodium 139 Potassium 3.6 Chloride 105 Carbon Dioxide 29 Anion Gap 6 L BUN 5.4 L Creatinine 0.3 L Est GFR (CKD-EPI)AfAm 156.92 Est GFR (CKD-EPI)NonAf 135.39 Random Glucose 93 Calcium 7.2 L Phosphorus 2.9 Magnesium 1.5 L Total Bilirubin 0.4 AST 47 H ALT 28 Alkaline Phosphatase 77 Total Protein 5.3 L Albumin 1.9 L Blood Type Antibody Screen Crossmatch ASSESSMENT AND PLAN: POD#4: S/P L1 laminectomy & inferior facetectomy/L2 laminectomy & superior and inferior facetectomies/L3 laminectomy & superior and inferior facetectomies/L4 laminectomy & superior and inferior facetectomies/L5 laminectomy & superior and inferior facetectomies/S1 laminectomy & superior facetectomy/L4-L5 discectomy, PLIF, and posterolateral arthrodesis/L5-S1 discectomy, PLIF, and posterolateral arthrodesis/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
--- NOTE | 2019-12-14 12:00 | HOSP ---
Subjective - Review of Symptoms HEENT: Yes: Sinus Congestion Physical Examination Vital Signs: Vital Signs Temperature 98.6 F 12/14/19 06:00 Pulse Rate 86 12/14/19 06:00 Respiratory Rate 16 12/14/19 06:00 Blood Pressure 116/60 12/14/19 06:00 O2 Sat by Pulse Oximetry (%) 100 12/14/19 06:00 Labs: CBC, BMP 12/14/19 05:20 12/14/19 05:20 Hospitalist Encounter Assessment: Patient is a 49 F with PMH HTN & Sleep apnea (on CPAP) presents with a pre- operative diagnosis of (1) L2-L3 neurofibroma, (2) L4-L5 spondylolisthesis with associated facet cyst, (3) L5-S1 intervertebral disc disorder with associated facet cyst, (4) L2-S1 spinal stenosis with associated radiculopathy, claudication, and neurogenic bladder. She presented for surgery with Dr. Carl Randle for L1-S1 laminectomies & facetectomies, left L2-L3 Hernandez-Randle osteo merry, excisional biopsy L2-L3 neurofibroma, L4-L5 PLIF (Posterior Lumbar Interbody Fusion (PLIF), & L5-S1 PLIF, T12-S1 posterior instrumented spinal fusion. On 12/11, overnight, patient was febrile to 101.4, with MAP in 40s. Three 1 L NS boluses and vanc & ceftriaxone were given. Urine and blood cultures X 2 from 12/12/19 shows no growth. ID started patient on cefazolin 1 gm Q8H. Starting 12/12, the patient began to pass gas, so patient was advanced to clear liquids. Her PIGEON FANCIER was converted to dilaudid PO and IV. In addition, her Hgb/Hct was 6.8/20.6 with a MCV 88, indicating Normocytic anemia. CBC was repeated to ensure that the labs were accurate. 1 unit of PRBC were ordered. 400 mL sangui neous fluid drained from the Davol drain. Repeat CBC after the transfusion showed a Hgb/Hct of 7.8/23. Today, Hgb ist stable and only 32 mL saguineous fluid drained from the Davol Drain. There was a in her family today, so pastoral care was consulted. Patient is stable to transfer to med surg. Visit type - Emergency Visit Emergency Visit: Yes ED Registration Date: 12/10/19 Care time: The patient presented to the Emergency Department on the above date and was hospitalized for further evaluation of their emergent condition. - New Patient This patient is new to me today: No - Critical Care Critical Care patient: Yes Total Critical Care Time (in minutes): 36 Critical Care Statement: The care of this patient involved high complexity decision making to prevent further life threatening deterioration of the patient's condition and/or to evaluate & treat vital organ system(s) failure or risk of failure.
--- NOTE | 2019-12-14 12:25 | PN ---
Physical Exam: SUBJECTIVE: Patient seen and examined. Endorses that pain well controlled with medication, but reports that IV dilaudid caused her to have nausea. Endorses passing gas. Denies Vomiting or BM. Tolerating clear liquid diet. Also endorses a "little [nasal] congestion" and some blood on tissue after blowing her nose. Patient had a family member pass away today. OBJECTIVE: Vital Signs Period Temp Pulse Resp BP Sys/Connolly Pulse Ox Last 24 Hr 98.1 F-100.4 F 86-101 15-24 106-129/52-74 98-100 GENERAL: The patient is awake, alert, and fully oriented, in no acute distress. back pain HEENT: Normal with no signs of trauma. PERRL, EOMI, MMM LUNGS: Breath sounds equal, clear to auscultation bilaterally, no wheezes, no crackles, no accessory muscle use. HEART: Regular rate and rhythm, S1, S2 without murmur, rub or gallop. ABDOMEN: Obese Soft, nontender, not distended, hypoactive bowel sounds, no guarding, no rebound EXTREMITIES: 2+ pulses, warm, well-perfused. No peripheral edema. BACK: dressing along spine, Davol drain on Left side NEUROLOGICAL: Cranial nerves II through XII grossly intact. Normal speech, gait not observed. PSYCH: Normal mood, normal affect. Laboratory Results - last 24 hr 12/13/19 12/13/19 12/14/19 11:50 20:12 05:20 WBC 10.3 H 9.3 RBC 2.59 L 2.63 L Hgb 7.8 L 7.8 L Hct 22.8 L 23.0 L MCV 88.1 87.2 MCH 30.1 29.4 MCHC 34.2 33.8 RDW 14.1 14.1 Plt Count 194 229 MPV 8.7 8.5 Sodium Potassium Chloride Carbon Dioxide Anion Gap BUN Creatinine Est GFR (CKD-EPI)AfAm Est GFR (CKD-EPI)NonAf Random Glucose Calcium Phosphorus Magnesium Total Bilirubin AST ALT Alkaline Phosphatase Total Protein Albumin Blood Type AB POSITIVE Antibody Screen Negative Crossmatch See Detail 12/14/19 05:20 WBC RBC Hgb Hct MCV MCH MCHC RDW Plt Count MPV Sodium 139 Potassium 3.6 Chloride 105 Carbon Dioxide 29 Anion Gap 6 L BUN 5.4 L Creatinine 0.3 L Est GFR (CKD-EPI)AfAm 156.92 Est GFR (CKD-EPI)NonAf 135.39 Random Glucose 93 Calcium 7.2 L Phosphorus 2.9 Magnesium 1.5 L Total Bilirubin 0.4 AST 47 H ALT 28 Alkaline Phosphatase 77 Total Protein 5.3 L Albumin 1.9 L Blood Type Antibody Screen Crossmatch Active Medications Generic Name Dose Route Start Last Admin Trade Name Freq PRN Reason Stop Dose Admin Artificial Tears 1 drop 12/11/19 05:34 Artificial Tears OU BID PRN DRY EYES Chlorhexidine Gluconate 1 applic 12/10/19 22:00 12/13/19 21:57 Hibiclens For Decolonization - TP 1 applic HS SHERRY Administration Diazepam 5 mg 12/10/19 15:40 12/11/19 12:58 Valium Injection - IVPUSH 5 mg Q6H PRN Administration MUSCLE SPASMS Diphenhydramine HCl 12.5 mg 12/13/19 16:38 12/14/19 00:51 Benadryl Injection - IVPB 12.5 mg Q6H PRN Administration itching Hydromorphone HCl 2 mg 12/13/19 10:48 12/14/19 04:31 Dilaudid Vial - IVPB 2 mg Q4H PRN Administration PAIN LEVEL 6-10 Hydromorphone HCl 4 mg 12/13/19 12:52 12/14/19 12:11 Dilaudid - PO 4 mg Q4H PRN Administration PAIN LEVEL 4 - 6 Lisinopril 20 mg 12/10/19 22:00 12/13/19 21:57 Prinivil PO 20 mg HS SHERRY Administration Mupirocin 1 applic 12/10/19 22:00 12/13/19 21:57 Bactroban Ointment (For Decolonization) - NS 12/15/19 21:59 1 applic BID SHERRY Administration Ondansetron HCl 4 mg 12/10/19 15:40 12/14/19 04:38 Zofran Injection IVPUSH 4 mg Q6H PRN Administration NAUSEA AND/OR VOMITING Polyethylene Glycol 17 gm 12/14/19 10:00 12/14/19 09:19 Miralax (For Daily Use) - PO 17 gm DAILY SHERRY Administration ASSESSMENT/PLAN: 49 F PMH HTN & Sleep apnea (on CPAP) admitted to ICU for post-operative management for L1-S1 laminectomies & facetectomies, left L2-L3 Hernandez-Randle osteotomy, excisional biopsy L2-L3 neurofibroma, L4-L5 PLIF (Posterior Lumbar Interbody Fusion (PLIF), & L5-S1 PLIF, T12-S1 posterior instrumented spinal fusion POD #4. Neuro -per Ortho note, NO NSAID's. 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 Dilaudid PO and Dilaudid 2mg SQ q6h PRN for breakthrough. Patient gets nausea from dilaudid IV. Zofran 4 mg IV push Q6H PRN for nausea. -PT/OT/Rehab, OOB. -WBAT B/L LE. -No bending, lifting (>5 lbs), or twisting for 9-12 months. -Spine X-ray: posterior fusion from T12 through the upper sacrum. Lower laminectomies. SI joints are patent. There are Right upper quadrant clips and a drain Cardio #HTN Continue with home lisinopril 20 mg PO HS Pulm -Incentive spirometry q15 min. Encourage incentive spirometry use #BUBBA -on CPAP at home -CXR (12/11) : elevated right hemidiaphragm with prominent mediastinum & congestive changes GI Zofran 4 mg IV push Q6H PRN for Nausea/vomiting -AST/ ALT trended down from 64/26 to 47/28 -Do NOT advance diet until pt has BM. Ortho Recommends Relistor or Movantik to facilitate bowel movement. Heme #Leukocytosis resolved. Trended from 9.6 to 9.3 #Normocytic anemia: s/p 1 unit of PRBC yesterday. Repeat CBC after the transfusion showed a Hgb/Hct of 7.8/23. Today, Hgb/Hct remains stable at 7.8/23 and only 32 mL saguineous fluid drained from the Davol Drain. Per ortho, 2 units PRBC ordered. Will f/u CBC Renal -UA: 1+ protein, 3+ ketones, 2+ blood, 140 RBCs ID -COVID neg #sepsis -on 12/11, fever 101.4, MAP 40s, WBC 14.1, HR 101. s/p vanc & ceftriaxone and three 1 L NS fluid boluses - cefazolin 1 gm Q8H (12/11-12/13) dc'ed by surgery. Per ortho, no further sepsis workup/management indicated -urine/blood cultures X 2 (12/12/19) shows no growth Psych Family member today. Pastol care consult ordered. DVT PPX -Mechanical only: DARRELL's, SCD's. -Chemical: None. FEN NS@125 ml/hr -Monitor lytes -clear liquid. Do NOT advance diet until pt has BM DISPO -ICU -Elena Damon if pt needs rehab; f/u 7-10 days after rehab (or hospital) discharge at [facility] office; call for appointment; . -per Ortho, downgrade to med-surg unit (8W) tomorrow. Visit type - Emergency Visit Emergency Visit: Yes ED Registration Date: 12/10/19 Care time: The patient presented to the Emergency Department on the above date and was hospitalized for further evaluation of their emergent condition. - New Patient This patient is new to me today: No - Critical Care Critical Care patient: Yes Total Critical Care Time (in minutes): 35 Critical Care Statement: The care of this patient involved high complexity decision making to prevent further life threatening deterioration of the patient's condition and/or to evaluate & treat vital organ system(s) failure or risk of failure. ATTENDING PHYSICIAN STATEMENT I saw and evaluated the patient. I reviewed the resident's note and discussed the case with the resident. I agree with the resident's findings and plan as documented. SUBJECTIVE: OBJECTIVE: ASSESSMENT AND PLAN:
[2019-12-14] MEDS ORDERED: HYDROmorphone HCL CARPU-JECT 2 MG/1 ML DISP.SYRIN SQ PRN (12:47)
--- NOTE | 2019-12-14 13:22 | PN ---
Progress Note (short form) - Note Progress Note: 49F s/p L1-S1 laminectomies & facetectomies, left L2-L3 Hernandez-Randle osteotomy, excisional biopsy L2-L3 neurofibroma, L4-L5 PLIF, & L5-S1 PLIF, T12- S1 posterior instrumented spinal fusion POD #4. Pain well controlled. No acute events overnight. Pt. denies overnight history of headaches, chest pain, shortness of breath, nausea, vomiting, chills, & sweats. (+) Voiding; (+) Flatus; (-) BM. Pt. ambulated in room with PT yesterday, not yet today. All labs and vitals reviewed. H/H: 7.8/ now s/p transfusion 1U PRBC. PE: AAO x 3, NAD. T/L-Spine: Dressing intact & in place. Drain output: <35cc/shift. Drain removed on rounds. B/L LE Motor: HF/KF/KE/ADF/GTE/APF intact, minimum 3/5. B/L LE Sensory: At baseline. 49F s/p L1-S1 laminectomies & facetectomies, left L2-L3 Hernandez-Randle osteotomy, excisional biopsy L2-L3 neurofibroma, L4-L5 PLIF, & L5-S1 PLIF, T12- S1 posterior instrumented spinal fusion POD #4. -Pain control: NO NSAID's; Dilaudid 4mg PO q6h PRN; recommend Dilaudid 2mg SQ q6h PRN for breakthrough. -Hold all antibiotics; no further sepsis workup nor management indicated; patient's transient inflammatory response was a common stress response to spinal surgery and acute blood loss anemia. -Transfuse 2U PRBC, as H/H remains low. -DVT PPx: -Mechanical only: DARRELL's, SCD's. -Chemical: None. -Incentive spirometry q15 min. -Clear liquid diet; do not advance until (+) bowel movement. -Recommend Relistor or Movantik to facilitate bowel movement. -PT/OT/Rehab, OOB. -WBAT B/L LE. -f/u OR pathology report. -No bending, lifting (>5 lbs), or twisting for 9-12 months. -Care per ICU & medical hospitalist teams; ok to downgrade to med-surg unit (8W) tomorrow. -Discharge planning: Elena Damon preferred if pt. needs rehab; f/u 7-10 days after rehab (or hospital) discharge at [facility] office; call for appointment; . -Will follow. Carl Randle MD (Orthopaedic Surgery).
[2019-12-14] MEDS: HYDROmorphone HCl 2 MG/ML VIAL SQ PRN ×2 (13:43→22:58)
--- NOTE | 2019-12-14 14:13 | PN ---
Progress Note, Physician History of Present Illness: feels tired post physio had a spike of low grade fever - Current Medication List Current Medications: Active Medications Acetaminophen (Tylenol -) 650 mg PO Q6H PRN PRN Reason: PAIN LEVEL 1-5 Artificial Tears (Artificial Tears) 1 drop OU BID PRN PRN Reason: DRY EYES Chlorhexidine Gluconate (Hibiclens For Decolonization -) [address] [facility] Last Admin: 12/13/19 21:57 Dose: 1 applic Documented by: Diazepam (Valium Injection -) 5 mg IVPUSH Q6H PRN PRN Reason: MUSCLE SPASMS Last Admin: 12/11/19 12:58 Dose: 5 mg Documented by: Diphenhydramine HCl (Benadryl Injection -) 12.5 mg IVPB Q6H PRN PRN Reason: itching Last Admin: 12/14/19 00:51 Dose: 12.5 mg Documented by: Hydromorphone HCl (Dilaudid -) 4 mg PO Q4H PRN PRN Reason: PAIN LEVEL 4 - 6 Last Admin: 12/14/19 12:11 Dose: 4 mg Documented by: Hydromorphone HCl (Dilaudid Vial -) 2 mg SQ Q8H PRN PRN Reason: PAIN LEVEL 7 - 10 Last Admin: 12/14/19 13:43 Dose: 2 mg Documented by: Lisinopril (Prinivil) [address] [facility] Last Admin: 12/13/19 21:57 Dose: 20 mg Documented by: Mupirocin (Bactroban Ointment (For Decolonization) -) 1 applic NS BID [facility] Stop: 12/15/19 21:59 Last Admin: 12/14/19 10:06 Dose: 1 applic Documented by: Ondansetron HCl (Zofran Injection) 4 mg IVPUSH Q6H PRN PRN Reason: NAUSEA AND/OR VOMITING Last Admin: 12/14/19 13:45 Dose: 4 mg Documented by: Polyethylene Glycol (Miralax (For Daily Use) -) 17 gm PO DAILY [facility] Last Admin: 12/14/19 09:19 Dose: 17 gm Documented by: - Objective Vital Signs: Vital Signs Temperature 98.5 F 12/14/19 12:00 Pulse Rate 97 H 12/14/19 12:00 Respiratory Rate 22 H 12/14/19 12:00 Blood Pressure 130/85 12/14/19 12:00 O2 Sat by Pulse Oximetry (%) 100 12/14/19 12:00 Constitutional: Yes: Calm, Mild Distress Cardiovascular: Yes: S1, S2 Respiratory: Yes: Regular, CTA Bilaterally Gastrointestinal: Yes: Normal Bowel Sounds, Soft Musculoskeletal: Yes: WNL Extremities: Yes: Other Neurological: Yes: Alert, Oriented Psychiatric: Yes: Alert, Oriented Labs: CBC, BMP 12/14/19 05:20 12/14/19 05:20 Assessment/Plan POD#3: S/P L1 laminectomy & inferior facetectomy/L2 laminectomy & superior and inferior facetectomies/L3 laminectomy & superior and inferior facetectomies/L4 laminectomy & superior and inferior facetectomies/L5 laminectomy & superior and inferior facetectomies/S1 laminectomy & superior facetectomy/L4-L5 discectomy, PLIF, and posterolateral arthrodesis/L5-S1 discectomy, PLIF, and posterolateral arthrodesis/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
[2019-12-14 20:39] LABS: HEMATOCRIT 26.1 % (32.4-45.2); MCH 30.2 pg (25.7-33.7); MCHC 34.6 g/dl (32.0-36.0); MEAN CELL VOLUME 87.3 fl (80-96); MEAN PLT VOLUME 7.7 fl (7.5-11.1); PLATELET COUNT 262 K/MM3 (134-434); RBC 2.99 M/mm3 (3.60-5.2); RDW 13.7 % (11.6-15.6); WHITE BLOOD COUNT 8.8 K/mm3 (4.0-10.0)
[2019-12-14] MEDS: LISINOPRIL 20 MG TABLET PO SCH (21:25)
[2019-12-14] MEDS: CHLORHEXIDINE GLUCONATE 4% CLEANSER FOR DECOLONIZATION TP SCH (21:38)
[2019-12-15] MEDS: ONDANSETRON 4 MG/2 ML VIAL IVPUSH PRN ×2 (02:41→09:27)
[2019-12-15] MEDS: ACETAMINOPHEN 325 MG TABLET (FP) PO PRN ×3 (03:34→17:37)
--- NOTE | 2019-12-15 07:36 | PN ---
Physical Exam: SUBJECTIVE: Patient seen and examined at bedside. Pt complains of increasing right sided pain, nausea, vomiting, and difficulty sleeping that she attributes to the change in pain meds. She was unable to ambulate yesterday from PT. She is passing gas. Denies any bowel movements. The drain has been removed. OBJECTIVE: Vital Signs Period Temp Pulse Resp BP Sys/Connolly Pulse Ox Last 24 Hr 98.5 F-99.6 F 82-97 17-27 102-135/56-99 89-100 GENERAL: The patient is awake, alert, and fully oriented, in no acute distress. back pain, neck pain, right sided pain with movement HEENT: Normal with no signs of trauma. PERRL, EOMI, MMM LUNGS: Breath sounds equal, clear to auscultation bilaterally, no wheezes, no crackles, no accessory muscle use. HEART: Regular rate and rhythm, S1, S2 without murmur, rub or gallop. ABDOMEN: Obese Soft, nontender, not distended, hypoactive bowel sounds, no guarding, no rebound EXTREMITIES: 2+ pulses, warm, well-perfused. No peripheral edema. BACK: dressing along spine, Davol drain removed NEUROLOGICAL: Cranial nerves II through XII grossly intact. Normal speech, gait not observed. PSYCH: Normal mood, normal affect. Laboratory Results - last 24 hr 12/13/19 12/14/19 12/14/19 11:50 05:20 05:20 WBC 9.3 RBC 2.63 L Hgb 7.8 L Hct 23.0 L MCV 87.2 MCH 29.4 MCHC 33.8 RDW 14.1 Plt Count 229 MPV 8.5 Sodium 139 Potassium 3.6 Chloride 105 Carbon Dioxide 29 Anion Gap 6 L BUN 5.4 L Creatinine 0.3 L Est GFR (CKD-EPI)AfAm 156.92 Est GFR (CKD-EPI)NonAf 135.39 Random Glucose 93 Calcium 7.2 L Phosphorus 2.9 Magnesium 1.5 L Total Bilirubin 0.4 AST 47 H ALT 28 Alkaline Phosphatase 77 Total Protein 5.3 L Albumin 1.9 L Blood Type AB POSITIVE Antibody Screen Negative Crossmatch See Detail 12/14/19 20:30 WBC 8.8 RBC 2.99 L Hgb 9.0 L Hct 26.1 L MCV 87.3 MCH 30.2 MCHC 34.6 RDW 13.7 Plt Count 262 MPV 7.7 Sodium Potassium Chloride Carbon Dioxide Anion Gap BUN Creatinine Est GFR (CKD-EPI)AfAm Est GFR (CKD-EPI)NonAf Random Glucose Calcium Phosphorus Magnesium Total Bilirubin AST ALT Alkaline Phosphatase Total Protein Albumin Blood Type Antibody Screen Crossmatch Active Medications Generic Name Dose Route Start Last Admin Trade Name Freq PRN Reason Stop Dose Admin Acetaminophen 650 mg 12/14/19 12:46 12/15/19 03:34 Tylenol - PO 650 mg Q6H PRN Administration PAIN LEVEL 1-5 Artificial Tears 1 drop 12/11/19 05:34 Artificial Tears OU BID PRN DRY EYES Chlorhexidine Gluconate 1 applic 12/10/19 22:00 12/14/19 21:38 Hibiclens For Decolonization - TP 1 applic HS SHERRY Administration Diazepam 5 mg 12/10/19 15:40 12/11/19 12:58 Valium Injection - IVPUSH 5 mg Q6H PRN Administration MUSCLE SPASMS Diphenhydramine HCl 12.5 mg 12/13/19 16:38 12/15/19 05:47 Benadryl Injection - IVPB 12.5 mg Q6H PRN Administration itching Hydromorphone HCl 4 mg 12/13/19 12:52 12/15/19 05:47 Dilaudid - PO 4 mg Q4H PRN Administration PAIN LEVEL 4 - 6 Hydromorphone HCl 2 mg 12/14/19 13:35 12/14/19 22:58 Dilaudid Vial - SQ 2 mg Q8H PRN Administration PAIN LEVEL 7 - 10 Lisinopril 20 mg 12/10/19 22:00 12/14/19 21:25 Prinivil PO 20 mg HS SHERRY Administration Mupirocin 1 applic 12/10/19 22:00 12/14/19 21:38 Bactroban Ointment (For Decolonization) - NS 12/15/19 21:59 1 applic BID SHERRY Administration Ondansetron HCl 4 mg 12/10/19 15:40 12/14/19 20:32 Zofran Injection IVPUSH 4 mg Q6H PRN Administration NAUSEA AND/OR VOMITING Polyethylene Glycol 17 gm 12/14/19 10:00 12/14/19 09:19 Miralax (For Daily Use) - PO 17 gm DAILY SHERRY Administration ASSESSMENT/PLAN: 49 F PMH HTN & Sleep apnea (on CPAP) admitted to ICU for post-operative management for L1-S1 laminectomies & facetectomies, left L2-L3 Hernandez-Randle osteotomy, excisional biopsy L2-L3 neurofibroma, L4-L5 PLIF (Posterior Lumbar Interbody Fusion (PLIF), & L5-S1 PLIF, T12-S1 posterior instrumented spinal fusion POD #5. Neuro -Pain Management - NO NSAID's - discontinue RISK LEAD. - Dilaudid 8mg PO q4 - Dilaudid 2mg SQ q6h PRN for breakthrough (zofran for nausea) - Valium 2mg IV q8 for muscle spasms -PT/OT/Rehab, OOB. -WBAT B/L LE. -No bending, lifting (>5 lbs), or twisting for 9-12 months. -Spine X-ray: posterior fusion from T12 through the upper sacrum. Lower laminectomies. SI joints are patent. There are Right upper quadrant clips and a drain Cardio #HTN Continue with home lisinopril 20 mg PO HS Pulm -Incentive spirometry q15 min. Encourage incentive spirometry use #BUBBA -on CPAP at home -CXR (12/11) : elevated right hemidiaphragm with prominent mediastinum & congestive changes GI -AST/ ALT trended down from 64/26 to 47/28 -Do NOT advance diet until pt has BM. Ortho Recommends Relistor or Movantik to facilitate bowel movement. Zofran 4 mg IV push Q6H PRN for Nausea/vomiting Heme #Leukocytosis resolved. Trended from 9.6 to 9.3 #Normocytic anemia: s/p 1 unit of PRBC yesterday. Repeat CBC after the transfusion showed a Hgb/Hct of 7.8/23. Today, Hgb/Hct remains stable at 7.8/23 and only 32 mL saguineous fluid drained from the Davol Drain. Per ortho, 2 units PRBC ordered. Will f/u CBC Renal -UA: 1+ protein, 3+ ketones, 2+ blood, 140 RBCs ID -COVID neg #sepsis -on 12/11, fever 101.4, MAP 40s, WBC 14.1, HR 101. s/p vanc & ceftriaxone and three 1 L NS fluid boluses - cefazolin 1 gm Q8H (12/11-12/13) dc'ed by surgery. Per ortho, no further sepsis workup/management indicated -urine/blood cultures X 2 (12/12/19) shows no growth Psych Family member today. Pastol care consult ordered. DVT PPX -Mechanical only: DARRELL's, SCD's. -Chemical: None. FEN NS@125 ml/hr -Monitor lytes -clear liquid. Do NOT advance diet until pt has BM DISPO -ICU -Elena Damon if pt needs rehab; f/u 7-10 days after rehab (or hospital) discharge at [facility] office; call for appointment; [phone]. -per Ortho, downgrade to med-surg unit (8W) tomorrow. Visit type - Emergency Visit Emergency Visit: Yes ED Registration Date: 12/10/19 Care time: The patient presented to the Emergency Department on the above date and was hospitalized for further evaluation of their emergent condition. - New Patient This patient is new to me today: Yes Date on this admission: 12/16/19 - Critical Care Critical Care patient: No - Discharge Referral Referred to [facility] No ATTENDING PHYSICIAN STATEMENT I saw and evaluated the patient. I reviewed the resident's note and discussed the case with the resident. I agree with the resident's findings and plan as documented. SUBJECTIVE: OBJECTIVE: ASSESSMENT AND PLAN:
[2019-12-15 07:58] LABS: ALBUMIN 1.9 g/dl (3.4-5.0); BILIRUBIN,TOTAL 0.4 mg/dL (0.2-1); BLOOD UREA NITROGEN 3.9 mg/dL (7-18); CREATININE 0.4 mg/dL (0.55-1.3); MAGNESIUM 1.8 mg/dL (1.8-2.4); PHOSPHOROUS 2.9 mg/dL (2.5-4.9); POTASSIUM 3.5 mmol/L (3.5-5.1); TOT PROT 5.4 g/dl (6.4-8.2)
[2019-12-15 08:16] LABS: BASO % 0.4 % (0-2.0); EOS % 3.3 % (0-4.5); HEMATOCRIT 25.6 % (32.4-45.2); HEMOGLOBIN 8.7 GM/dL (10.7-15.3); LYMPH % 15.7 % (8-40); MCH 29.9 pg (25.7-33.7); MCHC 33.9 g/dl (32.0-36.0); MEAN CELL VOLUME 88.2 fl (80-96); MEAN PLT VOLUME 8.3 fl (7.5-11.1); MONO % 6.8 % (3.8-10.2); NEUT % 73.8 % (42.8-82.8); PLATELET COUNT 286 K/MM3 (134-434); RDW 14.1 % (11.6-15.6); WHITE BLOOD COUNT 7.1 K/mm3 (4.0-10.0)
[2019-12-15] MEDS: POLYETHYLENE GLYCOL 3350 119 GM BTL PO SCH (09:32)
[2019-12-15] MEDS: MUPIROCIN 2% TOPICAL OINTMENT FOR DECOLONIZATION NS SCH (09:33)
--- NOTE | 2019-12-15 10:19 | PN ---
Progress Note (short form) - Note Progress Note: Patient is a 49 F with PMH HTN & Sleep apnea (on CPAP) presents with a pre- operative diagnosis of (1) L2-L3 neurofibroma, (2) L4-L5 spondylolisthesis with associated facet cyst, (3) L5-S1 intervertebral disc disorder with associated facet cyst, (4) L2-S1 spinal stenosis with associated radiculopathy, claudication, and neurogenic bladder. She presented for surgery with Dr. Carl Randle for L1-S1 laminectomies & facetectomies, left L2-L3 Hernandez-Randle osteotomy, excisional biopsy L2-L3 neurofibroma, L4-L5 PLIF (Posterior Lumbar Interbody Fusion (PLIF), & L5-S1 PLIF, T12-S1 posterior instrumented spinal fusion. On 12/11, overnight, patient was febrile to 101.4, with MAP in 40s. Three 1 L NS boluses and vanc & ceftriaxone were given. Urine and blood cultures X 2 from 12/12/19 shows no growth. ID started patient on cefazolin 1 gm Q8H. Starting 12/12, the patient began to pass gas, so patient was advanced to clear liquids. Her GWOT IA/[employer]O IN[employer]LLIGENCE SUPPORT was converted to dilaudid PO and IV. In addition, her Hgb/Hct was 6.8/20.6 with a MCV 88, indicating Normocytic anemia. CBC was repeated to ensure that the labs were accurate. 1 unit of PRBC were ordered. 400 mL sanguineous fluid drained from the Davol drain. Repeat CBC after the transfusion showed a Hgb/Hct of 7.8/23. Today, Hgb ist stable and only 32 mL saguineous fluid drained from the Davol Drain. There was a in her family today, so pastoral care was consulted. Patient is stable to transfer to med surg. Pain regimen modified by Dr. Randle today for better pain control s/p discontinuation of GWOT IA/[employer]LL[employer] SUPPORT pump
[2019-12-15] MEDS: DOCUSATE SODIUM 100 MG CAPSULE (FP) PO PRN ×2 (11:25→21:21)
[2019-12-15] MEDS: diazePAM 2 MG TABLET PO PRN ×2 (11:26→20:14)
--- NOTE | 2019-12-15 12:17 | PN ---
Teaching Attending Note Name of Resident: Era Luis Enrique ATTENDING PHYSICIAN STATEMENT I saw and evaluated the patient. I reviewed the resident's note and discussed the case with the resident. I agree with the resident's findings and plan as documented. SUBJECTIVE: Patient seen and examined in the ICU. Increased pain today as the PCS was discontinued. No CP or SOB. H&H stable. No epistaxis. OBJECTIVE: Intake & Output 12/12/19 12/13/19 12/14/19 12/15/19 23:59 23:59 23:59 23:59 Intake Total 4800 1619.2 3730 Output Total 5258 853 5152 850 Balance 2900 1258.2 2198 -850 Weight 239 lb 239 lb 239 lb Last Vital Signs Temp Pulse Resp BP Pulse Ox 98.8 F 84 24 H 134/75 94 L 12/15/19 10:00 12/15/19 10:00 12/15/19 10:00 12/15/19 10:00 12/15/19 10:00 Active Medications Acetaminophen (Tylenol -) 650 mg PO Q6H PRN PRN Reason: PAIN LEVEL 1-5 Last Admin: 12/15/19 11:26 Dose: 650 mg Documented by: Artificial Tears (Artificial Tears) 1 drop OU BID PRN PRN Reason: DRY EYES Chlorhexidine Gluconate (Hibiclens For Decolonization -) 1 applic TP HS [facility] Last Admin: 12/14/19 21:38 Dose: 1 applic Documented by: Diazepam (Valium -) 2 mg PO Q8H PRN PRN Reason: PAIN Last Admin: 12/15/19 11:26 Dose: 2 mg Documented by: Diphenhydramine HCl (Benadryl Injection -) 12.5 mg IVPB Q6H PRN PRN Reason: itching Last Admin: 12/15/19 05:47 Dose: 12.5 mg Documented by: Docusate Sodium (Colace -) 100 mg PO BID PRN PRN Reason: CONSTIPATION Last Admin: 12/15/19 11:25 Dose: 100 mg Documented by: Hydromorphone HCl (Dilaudid Vial -) 2 mg SQ Q8H PRN PRN Reason: PAIN LEVEL 7 - 10 Last Admin: 12/14/19 22:58 Dose: 2 mg Documented by: Hydromorphone HCl (Dilaudid -) 8 mg PO Q4H PRN PRN Reason: PAIN LEVEL 4 - 6 Lisinopril (Prinivil) 20 mg PO HS [facility] Last Admin: 12/14/19 21:25 Dose: 20 mg Documented by: Mupirocin (Bactroban Ointment (For Decolonization) -) 1 applic NS BID [facility] Stop: 12/15/19 21:59 Last Admin: 12/15/19 09:33 Dose: 1 applic Documented by: Ondansetron HCl (Zofran Injection) 4 mg IVPUSH Q6H PRN PRN Reason: NAUSEA AND/OR VOMITING Last Admin: 12/15/19 09:27 Dose: 4 mg Documented by: Polyethylene Glycol (Miralax (For Daily Use) -) 17 gm PO DAILY [facility] Last Admin: 12/15/19 09:32 Dose: 17 gm Documented by: Senna (Senna -) 1 tab PO BID [facility] Gen: Uncomfortable due to pian, NAD in bed Heart: RRR Lung: decreased breath sounds at the bases Back: Dressing intact, Drain intact with dark blood Abd: soft, nontender Ext: no edema [employer]GICAL [employer]PPLIES STERILIZER: Non-focal Laboratory Results - last 24 hr 12/13/19 12/14/19 12/15/19 11:50 20:30 05:40 WBC 8.8 7.1 RBC 2.99 L 2.90 L Hgb 9.0 L 8.7 L Hct 26.1 L 25.6 L MCV 87.3 88.2 MCH 30.2 29.9 MCHC 34.6 33.9 RDW 13.7 14.1 Plt Count 262 286 MPV 7.7 8.3 Absolute Neuts (auto) 5.3 Neutrophils % 73.8 Lymphocytes % 15.7 D Monocytes % 6.8 Eosinophils % 3.3 D Basophils % 0.4 Nucleated RBC % 0 Sodium Potassium Chloride Carbon Dioxide Anion Gap BUN Creatinine Est GFR (CKD-EPI)AfAm Est GFR (CKD-EPI)NonAf Random Glucose Calcium Phosphorus Magnesium Total Bilirubin AST ALT Alkaline Phosphatase Total Protein Albumin Blood Type AB POSITIVE Antibody Screen Negative Crossmatch See Detail 12/15/19 05:40 WBC RBC Hgb Hct MCV MCH MCHC RDW Plt Count MPV Absolute Neuts (auto) Neutrophils % Lymphocytes % Monocytes % Eosinophils % Basophils % Nucleated RBC % Sodium 138 Potassium 3.5 Chloride 102 Carbon Dioxide 30 Anion Gap 6 L BUN 3.9 L Creatinine 0.4 L Est GFR (CKD-EPI)AfAm 142.75 Est GFR (CKD-EPI)NonAf 123.17 Random Glucose 135 H Calcium 8.0 L Phosphorus 2.9 Magnesium 1.8 Total Bilirubin 0.4 AST 80 H ALT 67 H Alkaline Phosphatase 223 H Total Protein 5.4 L Albumin 1.9 L Blood Type Antibody Screen Crossmatch ASSESSMENT AND PLAN: POD#5: S/P L1 laminectomy & inferior facetectomy/L2 laminectomy & superior and inferior facetectomies/L3 laminectomy & superior and inferior facetectomies/L4 l aminectomy & superior and inferior facetectomies/L5 laminectomy & superior and inferior facetectomies/S1 laminectomy & superior facetectomy/L4-L5 discectomy, PLIF, and posterolateral arthrodesis/L5-S1 discectomy, PLIF, and posterolateral arthrodesis/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
[2019-12-15] MEDS ORDERED: SIMETHICONE 40 MG/0.6 ML BOTTLE PO PRN (14:11)
--- NOTE | 2019-12-15 14:56 | PN ---
Progress Note (short form) - Note Progress Note: POD#5 ICU Awake fully orientated C/O Intermittent R ? Enthesiopathic pain R loin proximolateral thigh No increase in pain on valsalva maneuver Apyrexial WCC Normal Vitals as per chart CVS Stable RESP Clear AE No endobronchial secretions ABD Soft Passing flatus/No stool Not hungry Wound Dry Drain removed yesterday NEURO LE All motors 5/5 VASCULAR No calf or subsartorial tenderness ASSESS Obesity Status post major spinal decompression Resection of Left Neurofibroma with cord compression Instrumented T12 to Sacrum with L4/5 L5/S1 transpedicular instrumented posterolateral arthrodesis No major complications PLAN PT Mobilize Pain Mx as per ICU and anesthesia team Advance diet to regular diet prn If loin pain persists for CT l/spine Will reassess
--- NOTE | 2019-12-15 15:15 | HOSP ---
Subjective - Review of Symptoms Subjective: SYMPHONY ACCEPTANCE NOTE Patient received in stable condition. c/o right sided LE pain and back pain. POD#3 spinal sx w/ Dr ortega. Per dr. Ortega, if LE pain persists tomorrow, will do CT Lspine to evaluate. Maintain current pain ctrl regimen per ortho and anaesthesia. Continue all other management. Physical Examination Vital Signs: Vital Signs Temperature 98.0 F 12/15/19 14:00 Pulse Rate 93 H 12/15/19 14:00 Respiratory Rate 20 12/15/19 14:00 Blood Pressure 136/68 12/15/19 14:00 O2 Sat by Pulse Oximetry (%) 92 L 12/15/19 14:00 Constitutional: Yes: Well Nourished, No Distress, Calm HENT: Yes: Atraumatic, Normocephalic Neck: Yes: Supple, Trachea Midline Cardiovascular: Yes: Regular Rate and Rhythm, S1, S2. No: Gallop, Murmur, Rub Respiratory: Yes: Regular, CTA Bilaterally Gastrointestinal: Yes: Normal Bowel Sounds, Soft, Distention, Tenderness (diffuse) Musculoskeletal: Yes: Back Pain, Other (RLE pain) Wound/Incision: Yes: Clean/Dry, Well Approximated, Mildred Intact Neurological: Yes: Alert, Oriented Labs: CBC, BMP 12/15/19 05:40 12/15/19 05:40
--- NOTE | 2019-12-15 15:45 | PN ---
Progress Note, Physician History of Present Illness: Pt is alert, c/o back pain and abd discomfort due to constipation. +flatus but no recent BMs. Afebrile. - Current Medication List Current Medications: Active Medications Acetaminophen (Tylenol -) 650 mg PO Q6H PRN PRN Reason: PAIN LEVEL 1-5 Last Admin: 12/15/19 11:26 Dose: 650 mg Documented by: Artificial Tears (Artificial Tears) 1 drop OU BID PRN PRN Reason: DRY EYES Chlorhexidine Gluconate (Hibiclens For Decolonization -) 1 applic TP [facility] Last Admin: 12/14/19 21:38 Dose: 1 applic Documented by: Diazepam (Valium -) 2 mg PO Q8H PRN PRN Reason: PAIN Last Admin: 12/15/19 11:26 Dose: 2 mg Documented by: Diphenhydramine HCl (Benadryl Injection -) 12.5 mg IVPB Q6H PRN PRN Reason: itching Last Admin: 12/15/19 05:47 Dose: 12.5 mg Documented by: Docusate Sodium (Colace -) 100 mg PO BID PRN PRN Reason: CONSTIPATION Last Admin: 12/15/19 11:25 Dose: 100 mg Documented by: Hydromorphone HCl (Dilaudid Vial -) 2 mg SQ Q8H PRN PRN Reason: PAIN LEVEL 7 - 10 Last Admin: 12/14/19 22:58 Dose: 2 mg Documented by: Hydromorphone HCl (Dilaudid -) 8 mg PO Q4H PRN PRN Reason: PAIN LEVEL 4 - 6 Lisinopril (Prinivil) 20 mg PO [facility] Last Admin: 12/14/19 21:25 Dose: 20 mg Documented by: Mupirocin (Bactroban Ointment (For Decolonization) -) 1 applic NS BID [facility] Stop: 12/15/19 21:59 Last Admin: 12/15/19 09:33 Dose: 1 applic Documented by: Ondansetron HCl (Zofran Injection) 4 mg IVPUSH Q6H PRN PRN Reason: NAUSEA AND/OR VOMITING Last Admin: 12/15/19 09:27 Dose: 4 mg Documented by: Polyethylene Glycol (Miralax (For Daily Use) -) 17 gm PO DAILY [facility] Last Admin: 12/15/19 09:32 Dose: 17 gm Documented by: Senna (Senna -) 1 tab PO BID [facility] Simethicone (Mylicon Liquid -) 80 mg PO TID PRN PRN Reason: GAS Last Admin: 12/15/19 15:25 Dose: 80 mg Documented by: - Objective Vital Signs: Vital Signs Temperature 98.0 F 12/15/19 14:00 Pulse Rate 93 H 12/15/19 14:00 Respiratory Rate 20 12/15/19 14:00 Blood Pressure 136/68 12/15/19 14:00 O2 Sat by Pulse Oximetry (%) 92 L 12/15/19 14:00 Constitutional: Yes: No Distress Cardiovascular: Yes: Regular Rate and Rhythm Respiratory: Yes: Regular Gastrointestinal: Yes: Normal Bowel Sounds, Soft, Abdomen, Obese, Tenderness (mild generalized, no guarding) Musculoskeletal: Yes: Back Pain Edema: No Integumentary: Yes: WNL Wound/Incision: Yes: Dressing Dry and Intact Neurological: Yes: Alert, Oriented Labs: CBC, BMP 12/15/19 05:40 12/15/19 05:40 Laboratory Last Values WBC 7.1 K/mm3 (4.0-10.0) 12/15/19 05:40 RBC 2.90 M/mm3 (3.60-5.2) L 12/15/19 05:40 Hgb 8.7 GM/dL (10.7-15.3) L 12/15/19 05:40 Hct 25.6 % (32.4-45.2) L 12/15/19 05:40 MCV 88.2 fl (80-96) 12/15/19 05:40 MCH 29.9 pg (25.7-33.7) 12/15/19 05:40 MCHC 33.9 g/dl (32.0-36.0) 12/15/19 05:40 RDW 14.1 % (11.6-15.6) 12/15/19 05:40 Plt Count 286 K/MM3 (134-434) 12/15/19 05:40 MPV 8.3 fl (7.5-11.1) 12/15/19 05:40 Absolute Neuts (auto) 5.3 K/mm3 (1.5-8.0) 12/15/19 05:40 Neutrophils % 73.8 % (42.8-82.8) 12/15/19 05:40 Lymphocytes % 15.7 % (8-40) D 12/15/19 05:40 Monocytes % 6.8 % (3.8-10.2) 12/15/19 05:40 Eosinophils % 3.3 % (0-4.5) D 12/15/19 05:40 Basophils % 0.4 % (0-2.0) 12/15/19 05:40 Nucleated RBC % 0 % (0-0) 12/15/19 05:40 ESR 92 mm/hr (0-20) H 12/13/19 05:12 Sodium 138 mmol/L (136-145) 12/15/19 05:40 Potassium 3.5 mmol/L (3.5-5.1) 12/15/19 05:40 Chloride 102 mmol/L (98-107) 12/15/19 05:40 Carbon Dioxide 30 mmol/L (21-32) 12/15/19 05:40 Anion Gap 6 MMOL/L (8-16) L 12/15/19 05:40 BUN 3.9 mg/dL (7-18) L 12/15/19 05:40 Creatinine 0.4 mg/dL (0.55-1.3) L 12/15/19 05:40 Est GFR (CKD-EPI)AfAm 142.75 12/15/19 05:40 Est GFR (CKD-EPI)NonAf 123.17 12/15/19 05:40 Random Glucose 135 mg/dL (74-106) H 12/15/19 05:40 Lactic Acid 1.4 mmol/L (0.4-2.0) 12/12/19 02:30 Calcium 8.0 mg/dL (8.5-10.1) L 12/15/19 05:40 Phosphorus 2.9 mg/dL (2.5-4.9) 12/15/19 05:40 Magnesium 1.8 mg/dL (1.8-2.4) 12/15/19 05:40 Total Bilirubin 0.4 mg/dL (0.2-1) 12/15/19 05:40 AST 80 U/L (15-37) H 12/15/19 05:40 ALT 67 U/L (13-61) H 12/15/19 05:40 Alkaline Phosphatase 223 U/L (45-117) H 12/15/19 05:40 C-Reactive Protein > 19.0 MG/DL (0.00-0.3) H 12/13/19 06:00 Total Protein 5.4 g/dl (6.4-8.2) L 12/15/19 05:40 Albumin 1.9 g/dl (3.4-5.0) L 12/15/19 05:40 Serum , Qual Negative 12/10/19 06:32 Urine Color Dk yellow 12/12/19 02:30 Urine Appearance Clear 12/12/19 02:30 Urine pH 5.5 (5.0-8.0) 12/12/19 02:30 Ur Specific [place] 1.022 (1.010-1.035) 12/12/19 02:30 Urine Protein 1+ (NEGATIVE) H 12/12/19 02:30 Urine Glucose (UA) Negative (NEGATIVE) 12/12/19 02:30 Urine Ketones 3+ (NEGATIVE) H 12/12/19 02:30 Urine Blood 2+ (NEGATIVE) H 12/12/19 02:30 Urine Nitrite Negative (NEGATIVE) 12/12/19 02:30 Urine Bilirubin Negative (NEGATIVE) 12/12/19 02:30 Urine Urobilinogen 0.2 mg/dL (0.2-1.0) 12/12/19 02:30 Ur Leukocyte Esterase Negative (NEGATIVE) 12/12/19 02:30 Urine WBC (Auto) 43 /uL (0-25.8) 12/12/19 02:30 Urine RBC (Auto) 140 /uL (0-23.9) 12/12/19 02:30 Urine Casts (Auto) 15 /uL (0-3.1) 12/12/19 02:30 U Epithel Cells (Auto) 28 /uL (0-25.1) 12/12/19 02:30 Urine Bacteria (Auto) 7 /uL (0-1359) 12/12/19 02:30 Blood Type AB POSITIVE 12/13/19 11:50 Antibody Screen Negative 12/13/19 11:50 Crossmatch See Detail 12/13/19 11:50 Microbiology 12/12/19 03:00 Blood - Peripheral Venous Blood Culture - Preliminary NO GROWTH OBTAINED AFTER 72 HOURS, INCUBATION TO CONTINUE FOR 2 DAYS. 12/12/19 03:00 Blood - Peripheral Venous Blood Culture - Preliminary NO GROWTH OBTAINED AFTER 72 HOURS, INCUBATION TO CONTINUE FOR 2 DAYS. 12/12/19 03:30 Urine - Urine - Catheterized Urine Culture - Final NO GROWTH OBTAINED Assessment/Plan 49 y.o. female s/p L1-S1 laminectomies/facetectomy, osteotomy, excisional biopsy of neurofibroma, T12-S1 fusion POD#5 Lumbar spinal stenosis/radiculopathy Lumbar neurofibroma Morbid obesity Anemia HTN BUBBA - pt is afebrile, without leukocytosis - monitor off of antibiotics - pain control - management of constipation
[2019-12-15] MEDS: SENNOSIDES 8.6MG TABLET (FP) PO SCH (21:21)
[2019-12-15] MEDS: LISINOPRIL 20 MG TABLET PO SCH (21:21)
[2019-12-15] MEDS ORDERED: PT OWN MED DRAWER 7, Y5N ONE (21:21)
[2019-12-15] MEDS: Methylnaltrexone Bromide 12 MG/0.6 ML KIT SQ SCH (21:21)
[2019-12-15] MEDS: CHLORHEXIDINE GLUCONATE 4% CLEANSER FOR DECOLONIZATION TP SCH (21:21)
[2019-12-15] MEDS ORDERED: LIDOCAINE 5% TOPICAL PATCH TP SCH (22:30)
[2019-12-15] MEDS: LIDOCAINE 5% TOPICAL PATCH TP SCH (22:40)
[2019-12-16] MEDS: HYDROmorphone HCl 2 MG/ML VIAL SQ PRN (02:25)
[2019-12-16] MEDS: ACETAMINOPHEN 325 MG TABLET (FP) PO PRN ×3 (02:26→19:58)
[2019-12-16] MEDS: diazePAM 2 MG TABLET PO PRN ×2 (09:41→21:45)
[2019-12-16] MEDS: POLYETHYLENE GLYCOL 3350 119 GM BTL PO SCH (09:41)
[2019-12-16] MEDS: DOCUSATE SODIUM 100 MG CAPSULE (FP) PO PRN (09:41)
[2019-12-16] MEDS: SENNOSIDES 8.6MG TABLET (FP) PO SCH ×2 (09:41→21:44)
[2019-12-16] MEDS: Methylnaltrexone Bromide 12 MG/0.6 ML KIT SQ SCH (09:47)
[2019-12-16] MEDS ORDERED: LIDOCAINE 5% TOPICAL PATCH TP SCH (10:00)
[2019-12-16] MEDS: LIDOCAINE PATCH REMOVAL MC SCH (11:00)
[2019-12-16] MEDS: ONDANSETRON 4 MG/2 ML VIAL IVPUSH PRN ×2 (13:15→21:44)
--- NOTE | 2019-12-16 15:07 | PN ---
Progress Note (short form) - Note Progress Note: SUBJECTIVE: reports improvement in her pain. Passing flatus, no BM yet. No fever/chills. OBJECTIVE: Afebrile, Hemodynamically stable. Last Vital Signs Temp Pulse Resp BP Pulse Ox 98.5 F 86 24 H 164/83 95 12/16/19 12:00 12/16/19 12:00 12/16/19 12:00 12/16/19 12:00 12/16/19 09:00 HEENT - Atraumatic, Normocephalic. Heart - S1, S2, RRR Lungs - clear to auscultation Abdomen - soft, non-tender. Bowel Sounds normal. Extremities - High BMI. Soft, mild generalized tenderness, no guarding/rebound. Bowel Sounds normal. Neuro - AAO x 3. Tone/Power normal LEs. Laboratory Results - last 24 hr 12/13/19 11:50 Blood Type AB POSITIVE Antibody Screen Negative Crossmatch See Detail Current Medications Generic Name Dose Route Start Last Admin Trade Name Freq PRN Reason Stop Dose Admin Acetaminophen 650 mg 12/14/19 12:46 12/16/19 09:41 Tylenol - PO 650 mg Q6H PRN Administration PAIN LEVEL 1-5 Artificial Tears 1 drop 12/11/19 05:34 Artificial Tears OU BID PRN DRY EYES Chlorhexidine Gluconate 1 applic 12/10/19 22:00 12/15/19 21:21 Hibiclens For Decolonization - TP 1 applic HS [facility] Administration Diazepam 2 mg 12/15/19 10:23 12/16/19 09:41 Valium - PO 2 mg Q8H PRN Administration PAIN Diphenhydramine HCl 12.5 mg 12/13/19 16:38 12/16/19 03:32 Benadryl Injection - IVPB 12.5 mg Q6H PRN Administration itching Docusate Sodium 100 mg 12/15/19 10:16 12/16/19 09:41 Colace - PO 100 mg BID PRN Administration CONSTIPATION Hydromorphone HCl 2 mg 12/14/19 13:35 12/16/19 02:25 Dilaudid Vial - SQ 2 mg Q8H PRN Administration PAIN LEVEL 7 - 10 Hydromorphone HCl 8 mg 12/15/19 10:22 12/16/19 14:16 Dilaudid - PO 8 mg Q4H PRN Administration PAIN LEVEL 4 - 6 Lidocaine 1 patch 12/15/19 22:30 12/15/19 22:40 Lidoderm Patch - TP 1 patch DAILY@2230 [facility] Administration Lisinopril 20 mg 12/10/19 22:00 12/15/19 21:21 Prinivil PO 20 mg HS [facility] Administration Methylnaltrexone [place] 12 mg 12/15/19 20:45 12/16/19 09:47 Relistor - SQ 12 mg DAILY [facility] Administration Miscellaneous 1 each 12/16/19 10:00 12/16/19 11:00 Lidoderm Patch Removal [facility] 1 each DAILY@1000 [facility] Administration Ondansetron HCl 4 mg 12/10/19 15:40 12/16/19 13:15 Zofran Injection IVPUSH 4 mg Q6H PRN Administration NAUSEA AND/OR VOMITING Polyethylene Glycol 17 gm 12/14/19 10:00 12/16/19 09:41 Miralax (For Daily Use) - PO 17 gm DAILY [facility] Administration Senna 1 tab 12/15/19 22:00 12/16/19 09:41 Senna - PO 1 tab BID [facility] Administration Simethicone 80 mg 12/15/19 14:11 12/15/19 15:25 Mylicon Liquid - PO 80 mg TID PRN Administration GAS Home Medications Medication Instructions Recorded Lisinopril 20 mg PO HS 12/07/19 ASSESSMENT/PLAN: 1. 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 s/p KANCHAN drain removal 12/13. Post-op Incentive Spirometry Monitor off Abx as per ID Analgesia regimen - Dilaudid and Valium PRN, as per Spinal Sx/Analgesia. PT/Mobilization as per Spinal Sx. 2. Acute Blood Loss Anemia sec to Spinal Sx - s/p transfusion PRBCs, will clarify number of units. Monitor H/H 3. HTN - on Lisinopril. 4. Rising Transaminases ?medication related - will monitor. If continues to rise, will order Abdo US. 5. BUBBA on CPAP DVT Px - SCDs as per Spinal Sx. Visit type - Emergency Visit Emergency Visit: No - New Patient This patient is new to me today: Yes Date on this admission: 12/16/19 - Critical Care Critical Care patient: No - Discharge Referral Referred to [facility] Med [facility].C[facility] No
--- NOTE | 2019-12-16 17:07 | PN ---
Progress Note, Physician History of Present Illness: Pt seen earlier. No new complaints, remains afebrile. - Current Medication List Current Medications: Active Medications Acetaminophen (Tylenol -) 650 mg PO Q6H PRN PRN Reason: PAIN LEVEL 1-5 Last Admin: 12/16/19 09:41 Dose: 650 mg Documented by: Artificial Tears (Artificial Tears) 1 drop OU BID PRN PRN Reason: DRY EYES Chlorhexidine Gluconate (Hibiclens For Decolonization -) 1 applic TP [facility] Last Admin: 12/15/19 21:21 Dose: 1 applic Documented by: Diazepam (Valium -) 2 mg PO Q8H PRN PRN Reason: PAIN Last Admin: 12/16/19 09:41 Dose: 2 mg Documented by: Diphenhydramine HCl (Benadryl Injection -) 12.5 mg IVPB Q6H PRN PRN Reason: itching Last Admin: 12/16/19 03:32 Dose: 12.5 mg Documented by: Docusate Sodium (Colace -) 100 mg PO BID PRN PRN Reason: CONSTIPATION Last Admin: 12/16/19 09:41 Dose: 100 mg Documented by: Hydromorphone HCl (Dilaudid Vial -) 2 mg SQ Q8H PRN PRN Reason: PAIN LEVEL 7 - 10 Last Admin: 12/16/19 02:25 Dose: 2 mg Documented by: Hydromorphone HCl (Dilaudid -) 8 mg PO Q4H PRN PRN Reason: PAIN LEVEL 4 - 6 Last Admin: 12/16/19 14:16 Dose: 8 mg Documented by: Lidocaine (Lidoderm Patch -) 1 patch TP DAILY@2230 [facility] Last Admin: 12/15/19 22:40 Dose: 1 patch Documented by: Lisinopril (Prinivil) 20 mg PO [facility] Last Admin: 12/15/19 21:21 Dose: 20 mg Documented by: Methylnaltrexone [place] (Relistor -) 12 mg SQ DAILY [facility] Last Admin: 12/16/19 09:47 Dose: 12 mg Documented by: Miscellaneous (Lidoderm Patch Removal) 1 each MC DAILY@1000 [facility] Last Admin: 12/16/19 11:00 Dose: 1 each Documented by: Ondansetron HCl (Zofran Injection) 4 mg IVPUSH Q6H PRN PRN Reason: NAUSEA AND/OR VOMITING Last Admin: 12/16/19 13:15 Dose: 4 mg Documented by: Polyethylene Glycol (Miralax (For Daily Use) -) 17 gm PO DAILY [facility] Last Admin: 12/16/19 09:41 Dose: 17 gm Documented by: Senna (Senna -) 1 tab PO BID [facility] Last Admin: 12/16/19 09:41 Dose: 1 tab Documented by: Simethicone (Mylicon Liquid -) 80 mg PO TID PRN PRN Reason: GAS Last Admin: 12/15/19 15:25 Dose: 80 mg Documented by: - Objective Vital Signs: Vital Signs Temperature 98.5 F 12/16/19 12:00 Pulse Rate 88 12/16/19 16:00 Respiratory Rate 22 H 12/16/19 16:00 Blood Pressure 138/66 12/16/19 16:00 O2 Sat by Pulse Oximetry (%) 95 12/16/19 09:00 Constitutional: Yes: No Distress Cardiovascular: Yes: Regular Rate and Rhythm Respiratory: Yes: Regular Gastrointestinal: Yes: Normal Bowel Sounds, Soft, Abdomen, Obese Wound/Incision: Yes: Dressing Dry and Intact Neurological: Yes: Alert Labs: CBC, BMP 12/15/19 05:40 12/15/19 05:40 Microbiology 12/12/19 03:00 Blood - Peripheral Venous Blood Culture - Preliminary NO GROWTH OBTAINED AFTER 96 HOURS, INCUBATION TO CONTINUE FOR 1 DAYS. 12/12/19 03:00 Blood - Peripheral Venous Blood Culture - Preliminary NO GROWTH OBTAINED AFTER 96 HOURS, INCUBATION TO CONTINUE FOR 1 DAYS. 12/12/19 03:30 Urine - Urine - Catheterized Urine Culture - Final NO GROWTH OBTAINED Assessment/Plan 49 y.o. female s/p L1-S1 laminectomies/facetectomy, osteotomy, excisional biopsy of neurofibroma, T12-S1 fusion POD#6 Lumbar spinal stenosis/radiculopathy Lumbar neurofibroma Morbid obesity Anemia HTN BUBBA -- afebrile/wbc normal, cultures negative -- continue monitor off of antibiotics -- pain control
[2019-12-16] MEDS: LIDOCAINE 5% TOPICAL PATCH TP SCH (21:45)
[2019-12-16] MEDS: LISINOPRIL 20 MG TABLET PO SCH (21:45)
[2019-12-17] MEDS ORDERED: diazePAM 2 MG TABLET PO PRN (00:54)
[2019-12-17] MEDS ORDERED: ARTIFICIAL TEARS (POLYVINYL ALCOHOL) OPTH DROPS OU PRN (00:54)
[2019-12-17] MEDS ORDERED: ONDANSETRON 4 MG/2 ML VIAL IVPUSH PRN (00:54)
[2019-12-17] MEDS: HYDROmorphone HCl 2 MG/ML VIAL SQ PRN ×2 (02:50→16:50)
--- NOTE | 2019-12-17 09:53 | PN ---
Progress Note, Physician History of Present Illness: pain complaining in the buttock - Current Medication List Current Medications: Active Medications Acetaminophen (Tylenol -) 650 mg PO Q6H PRN PRN Reason: PAIN LEVEL 1-5 Artificial Tears (Artificial Tears) 1 drop OU BID PRN PRN Reason: DRY EYES Diazepam (Valium -) 2 mg PO Q8H PRN PRN Reason: PAIN Diphenhydramine HCl (Benadryl Injection -) 12.5 mg IVPB Q6H PRN PRN Reason: itching Docusate Sodium (Colace -) 100 mg PO BID PRN PRN Reason: CONSTIPATION Hydromorphone HCl (Dilaudid -) 8 mg PO Q4H PRN PRN Reason: PAIN LEVEL 4 - 6 Hydromorphone HCl (Dilaudid Vial -) 2 mg SQ Q8H PRN PRN Reason: PAIN LEVEL 7 - 10 Last Admin: 12/17/19 02:50 Dose: 2 mg Documented by: Lidocaine (Lidoderm Patch -) 1 patch TP DAILY@2230 [facility] Last Admin: 12/16/19 21:45 Dose: 1 patch Documented by: Lisinopril (Prinivil) 20 mg PO [facility] Methylnaltrexone [place] (Relistor -) 12 mg SQ DAILY [facility] Last Admin: 12/16/19 09:47 Dose: 12 mg Documented by: Miscellaneous (Lidoderm Patch Removal) 1 each MC DAILY@1000 [facility] Last Admin: 12/16/19 11:00 Dose: 1 each Documented by: Ondansetron HCl (Zofran Injection) 4 mg IVPUSH Q6H PRN PRN Reason: NAUSEA AND/OR VOMITING Polyethylene Glycol (Miralax (For Daily Use) -) 17 gm PO DAILY [facility] Senna (Senna -) 1 tab PO BID [facility] Simethicone (Mylicon Liquid -) 80 mg PO TID PRN PRN Reason: GAS Last Admin: 12/15/19 15:25 Dose: 80 mg Documented by: - Objective Vital Signs: Vital Signs Temperature 99.2 F 12/17/19 06:19 Pulse Rate 85 12/17/19 06:19 Respiratory Rate 20 12/17/19 06:19 Blood Pressure 156/92 12/17/19 06:19 O2 Sat by Pulse Oximetry (%) 96 12/17/19 06:19 Constitutional: Yes: No Distress, Calm Cardiovascular: Yes: S1, S2 Respiratory: Yes: Regular, CTA Bilaterally Gastrointestinal: Yes: Normal Bowel Sounds, Soft Musculoskeletal: Yes: WNL Extremities: Yes: WNL Neurological: Yes: Alert, Oriented Psychiatric: Yes: Alert, Oriented Labs: CBC, BMP 12/15/19 05:40 12/15/19 05:40 Assessment/Plan POD#3: S/P L1 laminectomy & inferior facetectomy/L2 laminectomy & superior and inferior facetectomies/L3 laminectomy & superior and inferior facetectomies/L4 laminectomy & superior and inferior facetectomies/L5 laminectomy & superior and inferior facetectomies/S1 laminectomy & superior facetectomy/L4-L5 discectomy, PLIF, and posterolateral arthrodesis/L5-S1 discectomy, PLIF, and posterolateral arthrodesis/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
[2019-12-17] MEDS ORDERED: SENNOSIDES 8.6MG TABLET (FP) PO SCH (10:00)
[2019-12-17] MEDS ORDERED: MAGNESIUM HYDROX 2400MG/30ML ORAL SUSPENSION 30 ML CUP PO ONE (10:11)
[2019-12-17] MEDS: POLYETHYLENE GLYCOL 3350 119 GM BTL PO SCH (10:35)
[2019-12-17] MEDS: LIDOCAINE PATCH REMOVAL MC SCH (10:36)
[2019-12-17] MEDS: SENNOSIDES 8.6MG TABLET (FP) PO SCH ×2 (10:36→22:19)
[2019-12-17] MEDS: DOCUSATE SODIUM 100 MG CAPSULE (FP) PO PRN (10:37)
[2019-12-17 11:21] LABS: BASO % 0.4 % (0-2.0); EOS % 4.3 % (0-4.5); LYMPH % 14.4 % (8-40); MCH 30.2 pg (25.7-33.7); MCHC 34.3 g/dl (32.0-36.0); MEAN PLT VOLUME 7.5 fl (7.5-11.1); MONO % 7.3 % (3.8-10.2); NEUT % 73.6 % (42.8-82.8); PLATELET COUNT 367 K/MM3 (134-434); RDW 14.3 % (11.6-15.6); WHITE BLOOD COUNT 7.3 K/mm3 (4.0-10.0)
[2019-12-17 11:52] LABS: ALBUMIN 2.1 g/dl (3.4-5.0); BILIRUBIN,TOTAL 0.4 mg/dL (0.2-1); CALCIUM 8.3 mg/dL (8.5-10.1); CREATININE 0.4 mg/dL (0.55-1.3); POTASSIUM 3.3 mmol/L (3.5-5.1); TOT PROT 5.9 g/dl (6.4-8.2)
[2019-12-17] MEDS: Methylnaltrexone Bromide 12 MG/0.6 ML KIT SQ SCH ×2 (13:48→16:39)
--- NOTE | 2019-12-17 15:42 | PN ---
Physical Exam: SUBJECTIVE: Patient seen and examined. Abdominal pain from no BM, passing flatus. Denies fever, chills. OBJECTIVE: Vital Signs Period Temp Pulse Resp BP Sys/Connolly Pulse Ox Last 24 Hr 99.2 F-99.4 F 85-88 14-26 129-156/66-92 96-97 GENERAL: The patient is awake, alert, and fully oriented, in no acute distress. HEAD: Normal with no signs of trauma. EYES: PERRL, extraocular movements intact, sclera anicteric, conjunctiva clear. No ptosis. ENT: Ears normal, nares patent, oropharynx clear without exudates, moist mucous membranes. NECK: Trachea midline, full range of motion, supple. LUNGS: Breath sounds equal, clear to auscultation bilaterally, no wheezes, no crackles, no accessory muscle use. HEART: Regular rate and rhythm, S1, S2 without murmur, rub or gallop. ABDOMEN: Soft, nontender, nondistended, normoactive bowel sounds, no guarding, no rebound, no hepatosplenomegaly, no masses. EXTREMITIES: 2+ pulses, warm, well-perfused, no edema. NEUROLOGICAL: Cranial nerves II through XII grossly intact. Normal speech, gait not observed. Dressings in place over psine from surgery. PSYCH: Normal mood, normal affect. SKIN: Warm, dry, normal turgor, no rashes or lesions noted Laboratory Results - last 24 hr 12/13/19 12/17/19 12/17/19 11:50 11:00 11:00 WBC 7.3 RBC 3.30 L Hgb 10.0 L Hct 29.0 L MCV 88.0 MCH 30.2 MCHC 34.3 RDW 14.3 Plt Count 367 D MPV 7.5 Absolute Neuts (auto) 5.4 Neutrophils % 73.6 Lymphocytes % 14.4 Monocytes % 7.3 Eosinophils % 4.3 Basophils % 0.4 Nucleated RBC % 0 Sodium 139 Potassium 3.3 L Chloride 103 Carbon Dioxide 30 Anion Gap 6 L BUN 5.0 L Creatinine 0.4 L Est GFR (CKD-EPI)AfAm 142.75 Est GFR (CKD-EPI)NonAf 123.17 Random Glucose 113 H Calcium 8.3 L Total Bilirubin 0.4 AST 71 H ALT 86 H Alkaline Phosphatase 264 H Total Protein 5.9 L Albumin 2.1 L Blood Type AB POSITIVE Antibody Screen Negative Crossmatch See Detail Active Medications Generic Name Dose Route Start Last Admin Trade Name Freq PRN Reason Stop Dose Admin Acetaminophen 650 mg 12/17/19 00:54 Tylenol - PO Q6H PRN PAIN LEVEL 1-5 Artificial Tears 1 drop 12/17/19 00:54 Artificial Tears OU BID PRN DRY EYES Diazepam 2 mg 12/17/19 00:54 Valium - PO Q8H PRN PAIN Diphenhydramine HCl 12.5 mg 12/17/19 00:54 Benadryl Injection - IVPB Q6H PRN itching Docusate Sodium 100 mg 12/17/19 00:54 12/17/19 10:37 Colace - PO 100 mg BID PRN Administration CONSTIPATION Hydromorphone HCl 8 mg 12/17/19 00:54 Dilaudid - PO Q4H PRN PAIN LEVEL 4 - 6 Hydromorphone HCl 2 mg 12/17/19 00:54 12/17/19 02:50 Dilaudid Vial - SQ 2 mg Q8H PRN Administration PAIN LEVEL 7 - 10 Lidocaine 1 patch 12/15/19 22:30 12/16/19 21:45 Lidoderm Patch - TP 1 patch DAILY@2230 SHERRY Administration Lisinopril 20 mg 12/17/19 22:00 Prinivil PO HS SHERRY Methylnaltrexone [place] 12 mg 12/15/19 20:45 12/17/19 13:48 Relistor - SQ Not Given DAILY SHERRY Miscellaneous 1 each 12/16/19 10:00 12/17/19 10:36 Lidoderm Patch Removal MC 1 each DAILY@1000 SHERRY Administration Ondansetron HCl 4 mg 12/17/19 00:54 Zofran Injection IVPUSH Q6H PRN NAUSEA AND/OR VOMITING Polyethylene Glycol 17 gm 12/17/19 10:00 12/17/19 10:35 Miralax (For Daily Use) - PO 17 gm DAILY SHERRY Administration Senna 1 tab 12/17/19 10:15 12/17/19 10:36 Senna - PO 1 tab BID SHERRY Administration Simethicone 80 mg 12/15/19 14:11 12/15/19 15:25 Mylicon Liquid - PO 80 mg TID PRN Administration GAS ASSESSMENT/PLAN: L2/3 Neurofibroma, L4/5 spondylolithiasis, L5/S1 intervertebral disc disorder with facet cyst, L2-S1 spinal stenosis with Radiculopathy, Claudication, and Neurogenic Bladder Acute Blood Loss Anemia sec to Spinal Sx -stable H, H (01 02) -rec`d 2 u pRBC -monitoring off abx per ID, afebrile, hemodynamically stable, no leukocytosis -cont dilaudid and valium PRN per spinal sx -PT -post op incentive spirometry -KANCHAN drain removed -no BM, given milk of mag, tap water enema; passing flatus Hx HTN Cont lisinopril Transaminitis -continue to monitor -consider abdominal if continues to rise BUBBA on CPAP -continue CPAP PPx SCD due spinal sx FEN Clear liquid diet Monitor electrolytes No standing fluids Dispo Admit to med surg. SP spinal surgery. Cont pain meds. Visit type - Emergency Visit Emergency Visit: Yes ED Registration Date: 12/10/19 Care time: The patient presented to the Emergency Department on the above date and was hospitalized for further evaluation of their emergent condition. - New Patient This patient is new to me today: No - Critical Care Critical Care patient: No ATTENDING PHYSICIAN STATEMENT I saw and evaluated the patient. I reviewed the resident's note and discussed the case with the resident. I agree with the resident's findings and plan as documented. SUBJECTIVE: OBJECTIVE: ASSESSMENT AND PLAN:
--- NOTE | 2019-12-17 17:42 | PN ---
Progress Note (short form) - Note Progress Note: 49F s/p L1-S1 laminectomies & facetectomies, left L2-L3 Hernandez-Randle osteotomy, excisional biopsy L2-L3 neurofibroma, L4-L5 PLIF, & L5-S1 PLIF, T12- S1 posterior instrumented spinal fusion POD #7. Pain well controlled. No acute events overnight. Pt. reports new onset right-sided posterior pelvic pain radiating into right- sided gluteal musculature; self-limiting. Pt. denies overnight history of headaches, chest pain, shortness of breath, na usea, vomiting, chills, & sweats. (+) Voiding; (+) Flatus; (+) BM. All labs and vitals reviewed. PE: AAO x 3, NAD. T/L-Spine: Dressing intact & in place. B/L LE Motor: HF/KF/KE/ADF/GTE/APF intact, minimum 3/5. B/L LE Sensory: L2-S1 2/2. 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 49F s/p L1-S1 laminectomies & facetectomies, left L2-L3 Hernandez-Randle osteotomy, excisional biopsy L2-L3 neurofibroma, L4-L5 PLIF, & L5-S1 PLIF, T12- S1 posterior instrumented spinal fusion POD #7. -Pain control: NO NSAID's; Dilaudid 4mg PO q6h PRN; recommend Dilaudid 2mg SQ q6h PRN for breakthrough; Valium 5mg PO q8h PRN muscle spasms. -Non-contrast CT L-Spine to evaluate hardware placement. -DVT PPx: -Mechanical only: DARRELL's, SCD's. -Chemical: None. -Incentive spirometry q15 min. -Advance diet as tolerated.. -PT/OT/Rehab, OOB. -WBAT B/L LE. -No bending, lifting (>5 lbs), or twisting for 9-12 months. -Care per medical hospitalist teams. -Discharge planning: Elena HERRERA; f/u 7-10 days after rehab (or hospital) discharge at [facility] office; call for appointment; [phone]. -Will follow. Carl Randle MD (Orthopaedic Surgery).
--- NOTE | 2019-12-17 17:58 | PN ---
Teaching Attending Note Name of Resident: Luis Angel Zendejas ATTENDING PHYSICIAN STATEMENT I saw and evaluated the patient. I reviewed the resident's note and discussed the case with the resident. I agree with the resident's findings and plan as documented. SUBJECTIVE: reports a miserable night with R buttock pain. Passing flatus, but no BM in several days. No fever/chills. OBJECTIVE: Afebrile, Hemodynamically stable. Last Vital Signs Temp Pulse Resp BP Pulse Ox 97.9 F 85 20 156/73 98 12/17/19 15:00 12/17/19 15:00 12/17/19 15:00 12/17/19 15:00 12/17/19 15:00 Heart - S1, S2, RRR Lungs - clear to auscultation Abdomen - High BMI. Soft, mild generalized tenderness, no guarding/rebound. Bowel Sounds normal. Extremities - No calf tenderness. Neuro - AAO x 3. Tone/Power normal all extremities. MS - Surgical Site to be examined by Spinal Sx. Laboratory Results - last 24 hr 12/13/19 12/17/19 12/17/19 11:50 11:00 11:00 WBC 7.3 RBC 3.30 L Hgb 10.0 L Hct 29.0 L MCV 88.0 MCH 30.2 MCHC 34.3 RDW 14.3 Plt Count 367 D MPV 7.5 Absolute Neuts (auto) 5.4 Neutrophils % 73.6 Lymphocytes % 14.4 Monocytes % 7.3 Eosinophils % 4.3 Basophils % 0.4 Nucleated RBC % 0 Sodium 139 Potassium 3.3 L Chloride 103 Carbon Dioxide 30 Anion Gap 6 L BUN 5.0 L Creatinine 0.4 L Est GFR (CKD-EPI)AfAm 142.75 Est GFR (CKD-EPI)NonAf 123.17 Random Glucose 113 H Calcium 8.3 L Total Bilirubin 0.4 AST 71 H ALT 86 H Alkaline Phosphatase 264 H Total Protein 5.9 L Albumin 2.1 L Blood Type AB POSITIVE Antibody Screen Negative Crossmatch See Detail Current Medications Generic Name Dose Route Start Last Admin Trade Name Freq PRN Reason Stop Dose Admin Acetaminophen 650 mg 12/17/19 00:54 Tylenol - PO Q6H PRN PAIN LEVEL 1-5 Artificial Tears 1 drop 12/17/19 00:54 Artificial Tears OU BID PRN DRY EYES Diazepam 5 mg 12/17/19 17:38 Valium - PO Q6H PRN MUSCLE SPASMS Diphenhydramine HCl 12.5 mg 12/17/19 00:54 Benadryl Injection - IVPB Q6H PRN itching Docusate Sodium 100 mg 12/17/19 00:54 12/17/19 10:37 Colace - PO 100 mg BID PRN Administration CONSTIPATION Hydromorphone HCl 8 mg 12/17/19 00:54 Dilaudid - PO Q4H PRN PAIN LEVEL 4 - 6 Hydromorphone HCl 2 mg 12/17/19 00:54 12/17/19 16:50 Dilaudid Vial - SQ 2 mg Q8H PRN Administration PAIN LEVEL 7 - 10 Lidocaine 1 patch 12/15/19 22:30 12/16/19 21:45 Lidoderm Patch - TP 1 patch DAILY@2230 SHERRY Administration Lisinopril 20 mg 12/17/19 22:00 Prinivil PO HS SHERRY Methylnaltrexone [place] 12 mg 12/15/19 20:45 12/17/19 16:39 Relistor - SQ 12 mg DAILY SHERRY Administration Miscellaneous 1 each 12/16/19 10:00 12/17/19 10:36 Lidoderm Patch Removal MC 1 each DAILY@1000 SHERRY Administration Ondansetron HCl 4 mg 12/17/19 00:54 Zofran Injection IVPUSH Q6H PRN NAUSEA AND/OR VOMITING Polyethylene Glycol 17 gm 12/17/19 10:00 12/17/19 10:35 Miralax (For Daily Use) - PO 17 gm DAILY SHERRY Administration Senna 1 tab 12/17/19 10:15 12/17/19 10:36 Senna - PO 1 tab BID SHERRY Administration Simethicone 80 mg 12/15/19 14:11 12/15/19 15:25 Mylicon Liquid - PO 80 mg TID PRN Administration GAS Home Medications Medication Instructions Recorded Lisinopril 20 mg PO HS 12/07/19 ASSESSMENT/PLAN: 1. 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 s/p KANCHAN drain removal 12/13. Spinal Sx ordered CT Lumbar Spine to evaluate new R sided lower back pain radiating to R buttock pain. Monitor off Abx as per ID Analgesia regimen - Dilaudid and Valium PRN, as per Spinal Sx/Analgesia. Post-op Incentive Spirometry PT/Mobilization as per Spinal Sx. On clear liquids by Spinal Sx - for advancement of diet as per Sx. Bowel regimen intensified - Colace, Senna, Miralax, MOM, Relistor, Tap water enema today. 2. Acute Blood Loss Anemia sec to Spinal Sx - s/p transfusion 2 units PRBCs. 3. HTN - on Lisinopril. 4. Rising Transaminases ?medication related - will monitor. If continues to rise, will order Gretel BRODY. 5. BUBBA on CPAP DVT Px - SCDs as per Spinal Sx. Mechanical Px only as per Sx.
[2019-12-17] MEDS ORDERED: POTASSIUM CHLORIDE TABS 20 MEQ TABLET.ER (FP) PO ONE (18:00)
[2019-12-17] MEDS ORDERED: CHLORHEXIDINE GLUCONATE 4% CLEANSER FOR DECOLONIZATION TP SCH (22:00)
[2019-12-17] MEDS: LISINOPRIL 20 MG TABLET PO SCH (22:19)
[2019-12-17] MEDS: LIDOCAINE 5% TOPICAL PATCH TP SCH (22:20)
[2019-12-17] MEDS: diazePAM 5 MG TABLET PO PRN (23:19)
[2019-12-18] MEDS: SIMETHICONE 80 MG TAB.CHEW (FP) PO PRN ×3 (00:01→23:08)
[2019-12-18] MEDS: ACETAMINOPHEN 325 MG TABLET (FP) PO PRN (00:04)
[2019-12-18] MEDS: HYDROmorphone HCl 2 MG/ML VIAL SQ PRN ×3 (08:09→23:01)
[2019-12-18 08:56] LABS: BASO % 0.5 % (0-2.0); EOS % 4.8 % (0-4.5); HEMATOCRIT 30.4 % (32.4-45.2); HEMOGLOBIN 10.4 GM/dL (10.7-15.3); LYMPH % 18.9 % (8-40); MCH 29.9 pg (25.7-33.7); MCHC 34.1 g/dl (32.0-36.0); MEAN CELL VOLUME 87.8 fl (80-96); MEAN PLT VOLUME 7.2 fl (7.5-11.1); MONO % 8.8 % (3.8-10.2); PLATELET COUNT 407 K/MM3 (134-434); RBC 3.46 M/mm3 (3.60-5.2); RDW 14.1 % (11.6-15.6); WHITE BLOOD COUNT 7.1 K/mm3 (4.0-10.0)
[2019-12-18 09:23] LABS: ALBUMIN 2.1 g/dl (3.4-5.0); BILIRUBIN,TOTAL 0.3 mg/dL (0.2-1); BLOOD UREA NITROGEN 5.1 mg/dL (7-18); CALCIUM 8.2 mg/dL (8.5-10.1); CREATININE 0.4 mg/dL (0.55-1.3); MAGNESIUM 1.9 mg/dL (1.8-2.4); PHOSPHOROUS 3.8 mg/dL (2.5-4.9); POTASSIUM 3.6 mmol/L (3.5-5.1); TOT PROT 5.9 g/dl (6.4-8.2)
[2019-12-18] MEDS: LIDOCAINE PATCH REMOVAL MC SCH (10:00)
[2019-12-18] MEDS: POLYETHYLENE GLYCOL 3350 119 GM BTL PO SCH ×2 (11:03→16:39)
[2019-12-18] MEDS: SENNOSIDES 8.6MG TABLET (FP) PO SCH ×2 (11:03→22:44)
--- NOTE | 2019-12-18 12:34 | PN ---
Progress Note (short form) - Note Progress Note: Patient doing very well today. Sitting in chair, ambulated to door with assistance and with much better pain control. Dressing is clean, dry and intact. Patient had a bowel movement. - GI/DVT prophylaxis - Patient is ready for Rehabilitation from Spine Surgery standpoint
--- NOTE | 2019-12-18 13:06 | PN ---
Progress Note, Physician History of Present Illness: stable c/o of pain on the buttocks has developed shingles - Current Medication List Current Medications: Active Medications Acetaminophen (Tylenol -) 650 mg PO Q6H PRN PRN Reason: PAIN LEVEL 1-5 Last Admin: 12/18/19 00:04 Dose: 650 mg Documented by: Artificial Tears (Artificial Tears) 1 drop OU BID PRN PRN Reason: DRY EYES Diazepam (Valium -) 5 mg PO Q6H PRN PRN Reason: MUSCLE SPASMS Last Admin: 12/17/19 23:19 Dose: 5 mg Documented by: Diphenhydramine HCl (Benadryl Injection -) 12.5 mg IVPB Q6H PRN PRN Reason: itching Last Admin: 12/18/19 00:01 Dose: 12.5 mg Documented by: Docusate Sodium (Colace -) 100 mg PO BID PRN PRN Reason: CONSTIPATION Last Admin: 12/17/19 10:37 Dose: 100 mg Documented by: Hydromorphone HCl (Dilaudid -) 8 mg PO Q4H PRN PRN Reason: PAIN LEVEL 4 - 6 Last Admin: 12/18/19 01:21 Dose: 8 mg Documented by: Hydromorphone HCl (Dilaudid Vial -) 2 mg SQ Q8H PRN PRN Reason: PAIN LEVEL 7 - 10 Last Admin: 12/18/19 08:09 Dose: 2 mg Documented by: Lidocaine (Lidoderm Patch -) 1 patch TP DAILY@2230 [facility] Last Admin: 12/17/19 22:20 Dose: 1 patch Documented by: Lisinopril (Prinivil) 20 mg PO HS [facility] Last Admin: 12/17/19 22:19 Dose: 20 mg Documented by: Methylnaltrexone [place] (Relistor -) 12 mg SQ DAILY [facility] Last Admin: 12/17/19 16:39 Dose: 12 mg Documented by: Miscellaneous (Lidoderm Patch Removal) 1 each MC DAILY@1000 SHERRY Last Admin: 12/17/19 10:36 Dose: 1 each Documented by: Ondansetron HCl (Zofran Injection) 4 mg IVPUSH Q6H PRN PRN Reason: NAUSEA AND/OR VOMITING Polyethylene Glycol (Miralax (For Daily Use) -) 17 gm PO DAILY [facility] Last Admin: 12/18/19 11:03 Dose: Not Given Documented by: Senna (Senna -) 1 tab PO BID SHERRY Last Admin: 12/18/19 11:03 Dose: Not Given Documented by: Simethicone (Mylicon -) 80 mg PO TID PRN PRN Reason: GAS Last Admin: 12/18/19 08:11 Dose: 80 mg Documented by: - Objective Vital Signs: Vital Signs Temperature 98 F 12/18/19 10:00 Pulse Rate 88 12/18/19 10:00 Respiratory Rate 20 12/18/19 10:00 Blood Pressure 138/78 12/18/19 10:00 O2 Sat by Pulse Oximetry (%) 98 12/18/19 10:00 Constitutional: Yes: Calm, Mild Distress Cardiovascular: Yes: S1, S2 Respiratory: Yes: Regular, CTA Bilaterally Gastrointestinal: Yes: Normal Bowel Sounds, Soft Musculoskeletal: Yes: WNL Extremities: Yes: WNL Wound/Incision: Yes: Clean/Dry, Other (shingles on the left gluteal region) Neurological: Yes: Alert, Oriented Labs: CBC, BMP 12/18/19 08:00 12/18/19 08:00 Assessment/Plan POD#3: S/P L1 laminectomy & inferior facetectomy/L2 laminectomy & superior and inferior facetectomies/L3 laminectomy & superior and inferior facetectomies/L4 laminectomy & superior and inferior facetectomies/L5 laminectomy & superior and inferior facetectomies/S1 laminectomy & superior facetectomy/L4-L5 discectomy, PLIF, and posterolateral arthrodesis/L5-S1 discectomy, PLIF, and posterolateral arthrodesis/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
--- NOTE | 2019-12-18 13:52 | PN ---
Physical Exam: SUBJECTIVE: Patient seen and examined. Had BM. Sitting in chair and participated in PT. OBJECTIVE: Vital Signs Period Temp Pulse Resp BP Sys/Connolly Pulse Ox Last 24 Hr 97.9 F-99.1 F 80-89 18-20 129-156/40-90 95-98 GENERAL: The patient is awake, alert, and fully oriented, in no acute distress. HEAD: Normal with no signs of trauma. EYES: PERRL, extraocular movements intact, sclera anicteric, conjunctiva clear. No ptosis. ENT: Ears normal, nares patent, oropharynx clear without exudates, moist mucous membranes. NECK: Trachea midline, full range of motion, supple. LUNGS: Breath sounds equal, clear to auscultation bilaterally, no wheezes, no crackles, no accessory muscle use. HEART: Regular rate and rhythm, S1, S2 without murmur, rub or gallop. ABDOMEN: Soft, nontender, nondistended, normoactive bowel sounds, no guarding, no rebound, no hepatosplenomegaly, no masses. EXTREMITIES: 2+ pulses, warm, well-perfused, no edema. NEUROLOGICAL: Cranial nerves II through XII grossly intact. Normal speech, gait not observed. Dressings in place over spine from surgery. PSYCH: Normal mood, normal affect. SKIN: Warm, dry, normal turgor, no rashes or lesions noted Laboratory Results - last 24 hr 12/13/19 12/18/19 12/18/19 11:50 08:00 08:00 WBC 7.1 RBC 3.46 L Hgb 10.4 L Hct 30.4 L MCV 87.8 MCH 29.9 MCHC 34.1 RDW 14.1 Plt Count 407 MPV 7.2 L Absolute Neuts (auto) 4.7 Neutrophils % 67.0 Lymphocytes % 18.9 D Monocytes % 8.8 Eosinophils % 4.8 H Basophils % 0.5 Nucleated RBC % 0 Sodium 138 Potassium 3.6 Chloride 106 Carbon Dioxide 28 Anion Gap 5 L BUN 5.1 L Creatinine 0.4 L Est GFR (CKD-EPI)AfAm 142.75 Est GFR (CKD-EPI)NonAf 123.17 Random Glucose 132 H Calcium 8.2 L Phosphorus 3.8 Magnesium 1.9 Total Bilirubin 0.3 AST 138 H ALT 119 H Alkaline Phosphatase 277 H Total Protein 5.9 L Albumin 2.1 L Blood Type AB POSITIVE Antibody Screen Negative Crossmatch See Detail Active Medications Generic Name Dose Route Start Last Admin Trade Name Freq PRN Reason Stop Dose Admin Acetaminophen 650 mg 12/17/19 00:54 12/18/19 00:04 Tylenol - PO 650 mg Q6H PRN Administration PAIN LEVEL 1-5 Artificial Tears 1 drop 12/17/19 00:54 Artificial Tears OU BID PRN DRY EYES Diazepam 5 mg 12/17/19 17:38 12/17/19 23:19 Valium - PO 5 mg Q6H PRN Administration MUSCLE SPASMS Diphenhydramine HCl 12.5 mg 12/17/19 00:54 12/18/19 00:01 Benadryl Injection - IVPB 12.5 mg Q6H PRN Administration itching Docusate Sodium 100 mg 12/17/19 00:54 12/17/19 10:37 Colace - PO 100 mg BID PRN Administration CONSTIPATION Hydromorphone HCl 8 mg 12/17/19 00:54 12/18/19 01:21 Dilaudid - PO 8 mg Q4H PRN Administration PAIN LEVEL 4 - 6 Hydromorphone HCl 2 mg 12/17/19 00:54 12/18/19 08:09 Dilaudid Vial - SQ 2 mg Q8H PRN Administration PAIN LEVEL 7 - 10 Lidocaine 1 patch 12/15/19 22:30 12/17/19 22:20 Lidoderm Patch - TP 1 patch DAILY@2230 SHERRY Administration Lisinopril 20 mg 12/17/19 22:00 12/17/19 22:19 Prinivil PO 20 mg HS SHERRY Administration Methylnaltrexone [place] 12 mg 12/15/19 20:45 12/17/19 16:39 Relistor - SQ 12 mg DAILY SHERRY Administration Miscellaneous 1 each 12/16/19 10:00 12/17/19 10:36 Lidoderm Patch Removal MC 1 each DAILY@1000 SHERRY Administration Ondansetron HCl 4 mg 12/17/19 00:54 Zofran Injection IVPUSH Q6H PRN NAUSEA AND/OR VOMITING Polyethylene Glycol 17 gm 12/17/19 10:00 12/18/19 11:03 Miralax (For Daily Use) - PO Not Given DAILY SHERRY Senna 1 tab 12/17/19 10:15 12/18/19 11:03 Senna - PO Not Given BID SHERRY Simethicone 80 mg 12/17/19 23:52 12/18/19 08:11 Mylicon - PO 80 mg TID PRN Administration GAS ASSESSMENT/PLAN: #L2/3 Neurofibroma, L4/5 spondylolithiasis, L5/S1 intervertebral disc disorder with facet cyst, L2-S1 spinal stenosis with Radiculopathy, Claudication, and Neurogenic Bladder #Acute Blood Loss Anemia sec to Spinal Sx -stable H/H (01/02) -rec`d 2 u pRBC -monitoring off abx per ID, afebrile, hemodynamically stable, no leukocytosis -cont dilaudid and valium PRN per spinal sx -post op incentive spirometry -KANCHAN drain removed -pt had BM, relieving much of abdominal discomfort -participated in PT, walked to door #Shingles -Valacyclovir 1000mg Q8h PO x 7d; day 1 #Hx HTN Cont lisinopril #Transaminitis -LFTs rising (AST/ALT 138/119); ALP 277 -RUQ ultrasound #BUBBA on CPAP -continue CPAP PPx SCD due spinal sx FEN Clear liquid diet Monitor electrolytes No standing fluids Dispo Admit to med surg. SP spinal surgery. Cont pain meds. Visit type - Emergency Visit Emergency Visit: Yes ED Registration Date: 12/10/19 Care time: The patient presented to the Emergency Department on the above date and was hospitalized for further evaluation of their emergent condition. - New Patient This patient is new to me today: No - Critical Care Critical Care patient: No ATTENDING PHYSICIAN STATEMENT I saw and evaluated the patient. I reviewed the resident's note and discussed the case with the resident. I agree with the resident's findings and plan as documented. SUBJECTIVE: OBJECTIVE: ASSESSMENT AND PLAN:
[2019-12-18] MEDS ORDERED: valACYclovir HCL 1000 MG TABLET PO SCH (15:00)
[2019-12-18] MEDS: Methylnaltrexone Bromide 12 MG/0.6 ML KIT SQ SCH (15:21)
[2019-12-18] MEDS ORDERED: valACYclovir HCL 500 MG TABLET (FP) ONE (15:24)
[2019-12-18] MEDS ORDERED: diphenhydrAMINE HCL 25 MG CAPSULE (FP) PO PRN (15:25)
[2019-12-18] MEDS: valACYclovir HCL 500 MG TABLET (FP) PO SCH ×2 (16:18→22:44)
--- NOTE | 2019-12-18 18:02 | PN ---
Teaching Attending Note Name of Resident: Luis Angel Zendejas ATTENDING PHYSICIAN STATEMENT I saw and evaluated the patient. I reviewed the resident's note and discussed the case with the resident. I agree with the resident's findings and plan as documented. SUBJECTIVE: pt seen and examined OBJECTIVE: Last Vital Signs Temp Pulse Resp BP Pulse Ox 98.8 F 90 20 156/77 97 12/18/19 14:00 12/18/19 14:00 12/18/19 14:00 12/18/19 14:00 12/18/19 14:00 Heart - S1, S2, RRR Lungs - clear to auscultation Abdomen - High BMI. Soft, mild generalized tenderness, no guarding/rebound. Bowel Sounds normal. Extremities - No calf tenderness. Neuro - AAO x 3. Tone/Power normal all extremities. MS - Surgical Site to be examined by Spinal Sx. CBCD WBC 7.1 K/mm3 (4.0-10.0) 12/18/19 08:00 RBC 3.46 M/mm3 (3.60-5.2) L 12/18/19 08:00 Hgb 10.4 GM/dL (10.7-15.3) L 12/18/19 08:00 Hct 30.4 % (32.4-45.2) L 12/18/19 08:00 MCV 87.8 fl (80-96) 12/18/19 08:00 MCHC 34.1 g/dl (32.0-36.0) 12/18/19 08:00 RDW 14.1 % (11.6-15.6) 12/18/19 08:00 Plt Count 407 K/MM3 (134-434) 12/18/19 08:00 MPV 7.2 fl (7.5-11.1) L 12/18/19 08:00 CMP Sodium 138 mmol/L (136-145) 12/18/19 08:00 Potassium 3.6 mmol/L (3.5-5.1) 12/18/19 08:00 Chloride 106 mmol/L (98-107) 12/18/19 08:00 Carbon Dioxide 28 mmol/L (21-32) 12/18/19 08:00 Anion Gap 5 MMOL/L (8-16) L 12/18/19 08:00 BUN 5.1 mg/dL (7-18) L 12/18/19 08:00 Creatinine 0.4 mg/dL (0.55-1.3) L 12/18/19 08:00 Calcium 8.2 mg/dL (8.5-10.1) L 12/18/19 08:00 Total Bilirubin 0.3 mg/dL (0.2-1) 12/18/19 08:00 AST 138 U/L (15-37) H 12/18/19 08:00 ALT 119 U/L (13-61) H 12/18/19 08:00 Alkaline Phosphatase 277 U/L (45-117) H 12/18/19 08:00 Total Protein 5.9 g/dl (6.4-8.2) L 12/18/19 08:00 Albumin 2.1 g/dl (3.4-5.0) L 12/18/19 08:00 ASSESSMENT AND PLAN: 49 F with PMH HTN & Sleep apnea (on CPAP) presents with a pre-operative diagn osis of (1) L2-L3 neurofibroma, (2) L4-L5 spondylolisthesis with associated facet cyst, (3) L5-S1 intervertebral disc disorder with associated facet cyst, (4) L2-S1 spinal stenosis with associated radiculopathy, claudication, and neurogenic bladder. She presented for surgery with Dr. Carl Randle for L1-S1 laminectomies & facetectomies, left L2-L3 Hernandez-Randle osteotomy, excisional biopsy L2-L3 neurofibroma, L4-L5 PLIF (Posterior Lumbar Interbody Fusion (PLIF), & L5-S1 PLIF, T12-S1 posterior instrumented spinal fusion # L2/3 Neurofibroma, L4/5 spondylolithiasis, L5/S1 intervertebral disc disorder with facet cyst, L2-S1 spinal stenosis with Radiculopathy, Claudication, and Neurogenic Bladder s/p L1 laminectomy & inferior facetectomy/L2 laminectomy & superior and inferior facetectomies/L3 laminectomy & superior and inferior facetectomies/L4 laminectomy & superior and inferior facetectomies/L5 laminectomy & superior and inferior facetectomies/S1 laminectomy & superior facetectomy/L4-L5 discectomy, PLIF, and posterolateral arthrodesis/L5-S1 discectomy, PLIF, and posterolateral arthrodesis/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 s/p KANCHAN drain removal 12/13. Spinal Sx ordered CT Lumbar Spine to evaluate new R sided lower back pain radiating to R buttock pain. Monitor off Abx as per ID pain management as indicated bowel regimen (had BM today) Post-op Incentive Spirometry PT/Mobilization as per Spinal Sx. advance diet DC planning if cleared by surgery Anemia HTN elevated LFT BUBBA Shingles DVT Px - SCDs as per Spinal Sx. Mechanical Px only as per Sx.
[2019-12-18] MEDS ORDERED: PT OWN MED DRAWER 7, Y5N ONE (21:09)
[2019-12-18] MEDS: LISINOPRIL 20 MG TABLET PO SCH (22:01)
[2019-12-18] MEDS: LIDOCAINE 5% TOPICAL PATCH TP SCH (22:45)
[2019-12-18] MEDS: diazePAM 5 MG TABLET PO PRN (23:07)
[2019-12-18] MEDS: CHLORHEXIDINE GLUCONATE 4% CLEANSER FOR DECOLONIZATION TP SCH (23:18)
[2019-12-19] MEDS: valACYclovir HCL 500 MG TABLET (FP) PO SCH (06:05)
[2019-12-19] MEDS: HYDROmorphone HCl 2 MG/ML VIAL SQ PRN ×2 (06:53→18:03)
[2019-12-19 08:04] LABS: BASO % 0.4 % (0-2.0); EOS % 4.2 % (0-4.5); HEMATOCRIT 32.3 % (32.4-45.2); HEMOGLOBIN 11.1 GM/dL (10.7-15.3); LYMPH % 16.3 % (8-40); MCH 30.2 pg (25.7-33.7); MCHC 34.2 g/dl (32.0-36.0); MEAN CELL VOLUME 88.2 fl (80-96); MEAN PLT VOLUME 7.3 fl (7.5-11.1); MONO % 7.8 % (3.8-10.2); NEUT % 71.3 % (42.8-82.8); PLATELET COUNT 477 K/MM3 (134-434); RBC 3.66 M/mm3 (3.60-5.2); RDW 14.5 % (11.6-15.6); WHITE BLOOD COUNT 9.1 K/mm3 (4.0-10.0)
[2019-12-19 08:42] LABS: POTASSIUM 4.2 mmol/L (3.5-5.1)
[2019-12-19 08:55] LABS: ALBUMIN 2.4 g/dl (3.4-5.0); BILIRUBIN,TOTAL 0.4 mg/dL (0.2-1); BLOOD UREA NITROGEN 5.4 mg/dL (7-18); CALCIUM 8.8 mg/dL (8.5-10.1); CREATININE 0.4 mg/dL (0.55-1.3); PHOSPHOROUS 4.1 mg/dL (2.5-4.9); TOT PROT 6.5 g/dl (6.4-8.2)
--- NOTE | 2019-12-19 10:36 | PN ---
Progress Note (short form) - Note Progress Note: POD#9 floor Awake fully orientated C/O Intermittent R ? Enthesiopathic pain better Has shingles recurrence Start neurontin D/C valtrex Walked in the hallway Apyrexial WCC Normal Vitals as per chart CVS Stable RESP Clear AE No endobronchial secretions Using apnea device ABD Soft Passing flatus/No stool Not hungry Wound Dry and intact NEURO LE All motors 5/5 VASCULAR No calf or subsartorial tenderness CT scan No complications in spinal hardware ASSESS Obesity Status post major spinal decompression Resection of Left Neurofibroma with cord compression Instrumented T12 to Sacrum with L4/5 L5/S1 transpedicular instrumented posterolateral arthrodesis No major complications Doing well PLAN PT Mobilize D/C Rolando Advance diet to regular diet prn See in office 2 weeks
[2019-12-19] MEDS ORDERED: PT OWN MED DRAWER 7, Y5N ONE (10:48)
[2019-12-19] MEDS: POLYETHYLENE GLYCOL 3350 119 GM BTL PO SCH ×2 (11:07→11:08)
[2019-12-19] MEDS: LIDOCAINE PATCH REMOVAL MC SCH (11:08)
[2019-12-19] MEDS: SENNOSIDES 8.6MG TABLET (FP) PO SCH ×2 (11:09→23:12)
[2019-12-19] MEDS: GABAPENTIN 300 MG CAPSULE PO SCH ×2 (11:09→22:49)
--- NOTE | 2019-12-19 11:20 | PN ---
Progress Note (short form) - Note Progress Note: Patient examiend at bedside today. Back pain imroving. Abdominal pain much improved s/p 1 loose bowel movement this morning. Patient started yesterday 12/17 on PO acyclovir for active wet shingles infection. She is on both contact and airborne isolation.
--- NOTE | 2019-12-19 14:59 | PN ---
Teaching Attending Note Name of Resident: Luis Angel Zendejas ATTENDING PHYSICIAN STATEMENT I saw and evaluated the patient. I reviewed the resident's note and discussed the case with the resident. I agree with the resident's findings and plan as documented. SUBJECTIVE: pt seen and examined OBJECTIVE: Last Vital Signs Temp Pulse Resp BP Pulse Ox 97.7 F 78 20 134/58 L 99 12/19/19 06:00 12/19/19 06:00 12/19/19 06:00 12/19/19 06:00 12/19/19 06:00 Heart - S1, S2, RRR Lungs - clear to auscultation Abdomen - High BMI. Soft, mild generalized tenderness, no guarding/rebound. Bowel Sounds normal. Extremities - No calf tenderness. Neuro - AAO x 3. Tone/Power normal all extremities. MS - Surgical Site to be examined by Spinal Sx. CBCD WBC 9.1 K/mm3 (4.0-10.0) 12/19/19 06:20 RBC 3.66 M/mm3 (3.60-5.2) 12/19/19 06:20 Hgb 11.1 GM/dL (10.7-15.3) 12/19/19 06:20 Hct 32.3 % (32.4-45.2) L 12/19/19 06:20 MCV 88.2 fl (80-96) 12/19/19 06:20 MCHC 34.2 g/dl (32.0-36.0) 12/19/19 06:20 RDW 14.5 % (11.6-15.6) 12/19/19 06:20 Plt Count 477 K/MM3 (134-434) H 12/19/19 06:20 MPV 7.3 fl (7.5-11.1) L 12/19/19 06:20 CMP Sodium 136 mmol/L (136-145) 12/19/19 06:20 Potassium 4.2 mmol/L (3.5-5.1) 12/19/19 06:20 Chloride 100 mmol/L (98-107) 12/19/19 06:20 Carbon Dioxide 28 mmol/L (21-32) 12/19/19 06:20 Anion Gap 8 MMOL/L (8-16) 12/19/19 06:20 BUN 5.4 mg/dL (7-18) L 12/19/19 06:20 Creatinine 0.4 mg/dL (0.55-1.3) L 12/19/19 06:20 Random Glucose 89 mg/dL (74-106) 12/19/19 06:20 Calcium 8.8 mg/dL (8.5-10.1) 12/19/19 06:20 Total Bilirubin 0.4 mg/dL (0.2-1) 12/19/19 06:20 AST 142 U/L (15-37) H 12/19/19 06:20 ALT 155 U/L (13-61) H 12/19/19 06:20 Alkaline Phosphatase 288 U/L (45-117) H 12/19/19 06:20 Total Protein 6.5 g/dl (6.4-8.2) 12/19/19 06:20 Albumin 2.4 g/dl (3.4-5.0) L 12/19/19 06:20 Active Medications Acetaminophen (Tylenol -) 650 mg PO Q6H PRN PRN Reason: PAIN LEVEL 1-5 Last Admin: 12/18/19 00:04 Dose: 650 mg Documented by: Artificial Tears (Artificial Tears) 1 drop OU BID PRN PRN Reason: DRY EYES Diazepam (Valium -) 5 mg PO Q6H PRN PRN Reason: MUSCLE SPASMS Last Admin: 12/18/19 23:07 Dose: 5 mg Documented by: Diphenhydramine HCl (Benadryl -) 12.5 mg PO Q8H PRN PRN Reason: ALLERGIES Docusate Sodium (Colace -) 100 mg PO BID PRN PRN Reason: CONSTIPATION Last Admin: 12/17/19 10:37 Dose: 100 mg Documented by: Gabapentin (Neurontin -) 300 mg PO BID [facility] Last Admin: 12/19/19 11:09 Dose: 300 mg Documented by: Hydromorphone HCl (Dilaudid Vial -) 2 mg SQ Q8H PRN PRN Reason: PAIN LEVEL 6-10 Last Admin: 12/19/19 06:53 Dose: 2 mg Documented by: Lidocaine (Lidoderm Patch -) 1 patch TP DAILY@2230 [facility] Last Admin: 12/18/19 22:45 Dose: Not Given Documented by: Lisinopril (Prinivil) 20 mg PO HS [facility] Last Admin: 12/18/19 22:01 Dose: 20 mg Documented by: Methylnaltrexone [place] (Relistor -) 12 mg SQ DAILY [facility] Last Admin: 12/18/19 15:21 Dose: 12 mg Documented by: Miscellaneous (Lidoderm Patch Removal) 1 each MC DAILY@1000 [facility] Last Admin: 12/19/19 11:08 Dose: 1 each Documented by: Ondansetron HCl (Zofran Injection) 4 mg IVPUSH Q6H PRN PRN Reason: NAUSEA AND/OR VOMITING Polyethylene Glycol (Miralax (For Daily Use) -) 17 gm PO DAILY [facility] Last Admin: 12/19/19 11:08 Dose: 17 gm Documented by: Senna (Senna -) 1 tab PO BID [facility] Last Admin: 12/19/19 11:09 Dose: Not Given Documented by: Simethicone (Mylicon -) 80 mg PO TID PRN PRN Reason: GAS Last Admin: 12/18/19 23:08 Dose: 80 mg Documented by: Valacyclovir HCl (Valtrex -) 1,000 mg PO Q8H [facility] ASSESSMENT AND PLAN: 49 F with PMH HTN & Sleep apnea (on CPAP) presents with a pre-operative diagnosis of (1) L2-L3 neurofibroma, (2) L4-L5 spondylolisthesis with associated facet cyst, (3) L5-S1 intervertebral disc disorder with associated facet cyst, (4) L2-S1 spinal stenosis with associated radiculopathy, claudication, and neurogenic bladder. She presented for surgery with Dr. Carl Randle for L1-S1 laminectomies & facetectomies, left L2-L3 Hernandez-Randle osteotomy, excisional biopsy L2-L3 neurofibroma, L4-L5 PLIF (Posterior Lumbar Interbody Fusion (PLIF), & L5-S1 PLIF, T12-S1 posterior instrumented spinal fusion # L2/3 Neurofibroma, L4/5 spondylolithiasis, L5/S1 intervertebral disc disorder with facet cyst, L2-S1 spinal stenosis with Radiculopathy, Claudication, and Neurogenic Bladder s/p L1 laminectomy & inferior facetectomy/L2 laminectomy & superior and inferior facetectomies/L3 laminectomy & superior and inferior facetectomies/L4 laminectomy & superior and inferior facetectomies/L5 laminectomy & superior and inferior facetectomies/S1 laminectomy & superior facetectomy/L4-L5 discectomy, PLIF, and posterolateral arthrodesis/L5-S1 discectomy, PLIF, and posterolateral arthrodesis/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 s/p KANCHAN drain removal 12/13. Spinal Sx ordered CT Lumbar Spine to evaluate new R sided lower back pain radiating to R buttock pain. Monitor off Abx as per ID pain management as indicated bowel regimen (had BM today) Post-op Incentive Spirometry PT/Mobilization as per Spinal Sx. advance diet DC planning if cleared by surgery Anemia HTN elevated LFT BUBBA Shingles (acyclovir, airborne and contact precautions) DVT Px - SCDs as per Spinal Sx. Mechanical Px only as per Sx.
[2019-12-19] MEDS ORDERED: valACYclovir HCL 500 MG TABLET (FP) ONE (15:48)
[2019-12-19] MEDS: valACYclovir HCL 1000 MG TABLET PO SCH ×2 (15:55→22:57)
--- NOTE | 2019-12-19 17:17 | PN ---
Physical Exam: SUBJECTIVE: Patient seen and examined OBJECTIVE: Vital Signs Period Temp Pulse Resp BP Sys/[place]olly Pulse Ox Last 24 Hr 97.7 F-98.8 F 78-94 20-20 132-150/58-86 95-99 GENERAL: The patient is awake, alert, and fully oriented, in no acute distress. HEAD: Normal with no signs of trauma. EYES: PERRL, extraocular movements intact, sclera anicteric, conjunctiva clear. No ptosis. ENT: Ears normal, nares patent, oropharynx clear without exudates, moist mucous membranes. NECK: Trachea midline, full range of motion, supple. LUNGS: Breath sounds equal, clear to auscultation bilaterally, no wheezes, no crackles, no accessory muscle use. HEART: Regular rate and rhythm, S1, S2 without murmur, rub or gallop. ABDOMEN: Soft, nontender, nondistended, normoactive bowel sounds, no guarding, no rebound, no hepatosplenomegaly, no masses. EXTREMITIES: 2+ pulses, warm, well-perfused, no edema. NEUROLOGICAL: Cranial nerves II through XII grossly intact. Normal speech, gait not observed. Dressings in place over spine from surgery. PSYCH: Normal mood, normal affect. SKIN: Warm, dry, normal turgor. Shingles rash noted along R gluteus/outer thigh. Laboratory Results - last 24 hr 12/19/19 12/19/19 06:20 06:20 WBC 9.1 RBC 3.66 Hgb 11.1 Hct 32.3 L MCV 88.2 MCH 30.2 MCHC 34.2 RDW 14.5 Plt Count 477 H MPV 7.3 L Absolute Neuts (auto) 6.5 Neutrophils % 71.3 Lymphocytes % 16.3 Monocytes % 7.8 Eosinophils % 4.2 Basophils % 0.4 Nucleated RBC % 0 Sodium 136 Potassium 4.2 Chloride 100 Carbon Dioxide 28 Anion Gap 8 BUN 5.4 L Creatinine 0.4 L Est GFR (CKD-EPI)AfAm 142.75 Est GFR (CKD-EPI)NonAf 123.17 Random Glucose 89 Calcium 8.8 Phosphorus 4.1 Magnesium 2.0 Total Bilirubin 0.4 AST 142 H ALT 155 H Alkaline Phosphatase 288 H Total Protein 6.5 Albumin 2.4 L Active Medications Generic Name Dose Route Start Last Admin Trade Name Freq PRN Reason Stop Dose Admin Acetaminophen 650 mg 12/17/19 00:54 12/18/19 00:04 Tylenol - PO 650 mg Q6H PRN Administration PAIN LEVEL 1-5 Artificial Tears 1 drop 12/17/19 00:54 Artificial Tears OU BID PRN DRY EYES Diazepam 5 mg 12/17/19 17:38 12/18/19 23:07 Valium - PO 5 mg Q6H PRN Administration MUSCLE SPASMS Diphenhydramine HCl 12.5 mg 12/18/19 15:25 Benadryl - PO Q8H PRN ALLERGIES Docusate Sodium 100 mg 12/17/19 00:54 12/17/19 10:37 Colace - PO 100 mg BID PRN Administration CONSTIPATION Gabapentin 300 mg 12/19/19 10:00 12/19/19 11:09 Neurontin - PO 300 mg BID [facility] Administration Hydromorphone HCl 2 mg 12/18/19 17:57 12/19/19 06:53 Dilaudid Vial - SQ 2 mg Q8H PRN Administration PAIN LEVEL 6-10 Lidocaine 1 patch 12/15/19 22:30 12/18/19 22:45 Lidoderm Patch - TP Not Given DAILY@2230 [facility] Lisinopril 20 mg 12/17/19 22:00 12/18/19 22:01 Prinivil PO 20 mg HS [facility] Administration Methylnaltrexone [place] 12 mg 12/15/19 20:45 12/18/19 15:21 Relistor - SQ 12 mg DAILY [facility] Administration Miscellaneous 1 each 12/16/19 10:00 12/19/19 11:08 Lidoderm Patch Removal MC 1 each DAILY@1000 [facility] Administration Ondansetron HCl 4 mg 12/17/19 00:54 Zofran Injection IVPUSH Q6H PRN NAUSEA AND/OR VOMITING Polyethylene Glycol 17 gm 12/17/19 10:00 12/19/19 11:08 Miralax (For Daily Use) - PO 17 gm DAILY [facility] Administration Senna 1 tab 12/17/19 10:15 12/19/19 11:09 Senna - PO Not Given BID [facility] Simethicone 80 mg 12/17/19 23:52 12/18/19 23:08 Mylicon - PO 80 mg TID PRN Administration GAS Valacyclovir HCl 1,000 mg 12/19/19 14:30 12/19/19 15:55 Valtrex - PO Not Given Q8H [facility] ASSESSMENT/PLAN: #L2/3 Neurofibroma, L4/5 spondylolithiasis, L5/S1 intervertebral disc disorder with facet cyst, L2-S1 spinal stenosis with Radiculopathy, Claudication, and Neurogenic Bladder #Acute Blood Loss Anemia sec to Spinal Sx -rec`d 2 u pRBC -monitoring off abx per ID, afebrile, hemodynamically stable, no leukocytosis -cont dilaudid and valium PRN per spinal sx -post op incentive spirometry -KANCHAN drain removed dec 13 -pt had BM, relieving much of abdominal discomfort -participated in PT, walked to door -continued pain meds -d/c planning for [facility] #Shingles -Valacyclovir 1000mg Q8h PO x 7d; was initially held by neurosurg -restarted; advised pt to increase water and food intake to aid with digestion and decrease GI side effects -L5 dermatome distribution #Hx HTN Cont lisinopril #Transaminitis -LFTs rising -RUQ ultrasound; s/p cholecystectomy, no CBD dilation #BUBBA on CPAP -continue CPAP PPx SCD due spinal sx FEN Clear liquid diet Monitor electrolytes No standing fluids Dispo Admit to med surg. SP spinal surgery. Cont pain meds. Visit type - Emergency Visit Emergency Visit: Yes ED Registration Date: 12/10/19 Care time: The patient presented to the Emergency Department on the above date and was hospitalized for further evaluation of their emergent condition. - New Patient This patient is new to me today: No - Critical Care Critical Care patient: No ATTENDING PHYSICIAN STATEMENT I saw and evaluated the patient. I reviewed the resident's note and discussed the case with the resident. I agree with the resident's findings and plan as documented. SUBJECTIVE: OBJECTIVE: ASSESSMENT AND PLAN:
[2019-12-19] MEDS: Methylnaltrexone Bromide 12 MG/0.6 ML KIT SQ SCH (17:52)
[2019-12-19] MEDS: LISINOPRIL 20 MG TABLET PO SCH (22:49)
[2019-12-19] MEDS: LIDOCAINE 5% TOPICAL PATCH TP SCH (23:12)
[2019-12-20] MEDS: HYDROmorphone HCl 2 MG/ML VIAL SQ PRN ×3 (02:18→18:39)
[2019-12-20] MEDS: valACYclovir HCL 1000 MG TABLET PO SCH ×4 (04:01→21:42)
[2019-12-20 09:19] VITALS: BMI 43.1
--- NOTE | 2019-12-20 09:21 | PN ---
Progress Note, Physician History of Present Illness: stable pain main issues shingles - Current Medication List Current Medications: Active Medications Acetaminophen (Tylenol -) 650 mg PO Q6H PRN PRN Reason: PAIN LEVEL 1-5 Last Admin: 12/18/19 00:04 Dose: 650 mg Documented by: Artificial Tears (Artificial Tears) 1 drop OU BID PRN PRN Reason: DRY EYES Diazepam (Valium -) 5 mg PO Q6H PRN PRN Reason: MUSCLE SPASMS Last Admin: 12/18/19 23:07 Dose: 5 mg Documented by: Diphenhydramine HCl (Benadryl -) 12.5 mg PO Q8H PRN PRN Reason: ALLERGIES Docusate Sodium (Colace -) 100 mg PO BID PRN PRN Reason: CONSTIPATION Last Admin: 12/17/19 10:37 Dose: 100 mg Documented by: Gabapentin (Neurontin -) 300 mg PO BID [facility]S INCLUDE 234 BEDS AT THE [facility] Last Admin: 12/19/19 22:49 Dose: 300 mg Documented by: Hydromorphone HCl (Dilaudid Vial -) 2 mg SQ Q8H PRN PRN Reason: PAIN LEVEL 6-10 Last Admin: 12/20/19 02:18 Dose: 2 mg Documented by: Lidocaine (Lidoderm Patch -) 1 patch TP DAILY@2230 [facility]S [facility]CLUDE 234 BEDS AT THE [facility] Last Admin: 12/19/19 23:12 Dose: Not Given Documented by: Lisinopril (Prinivil) 20 mg PO [facility] Last Admin: 12/19/19 22:49 Dose: 20 mg Documented by: Methylnaltrexone [place] (Relistor -) 12 mg SQ DAILY COUNTS INCLUDE 234 BEDS AT THE [facility] Last Admin: 12/19/19 17:52 Dose: 12 mg Documented by: Miscellaneous (Lidoderm Patch Removal) 1 each MC DAILY@1000 COUNTS INCLUDE 234 BEDS AT THE [facility] Last Admin: 12/19/19 11:08 Dose: 1 each Documented by: Ondansetron HCl (Zofran Injection) 4 mg IVPUSH Q6H PRN PRN Reason: NAUSEA AND/OR VOMITING Polyethylene Glycol (Miralax (For Daily Use) -) 17 gm PO DAILY COUNTS INCLUDE 234 BEDS AT THE [facility] Last Admin: 12/19/19 11:08 Dose: 17 gm Documented by: Senna (Senna -) 1 tab PO BID COUNTS INCLUDE 234 BEDS AT THE [facility] Last Admin: 12/19/19 23:12 Dose: Not Given Documented by: Simethicone (Mylicon -) 80 mg PO TID PRN PRN Reason: GAS Last Admin: 12/18/19 23:08 Dose: 80 mg Documented by: Valacyclovir HCl (Valtrex -) 1,000 mg PO Q8H COUNTS INCLUDE 234 BEDS AT THE [facility] Last Admin: 12/20/19 08:06 Dose: Not Given Documented by: - Objective Vital Signs: Vital Signs Temperature 98.8 F 12/20/19 06:00 Pulse Rate 85 12/20/19 06:00 Respiratory Rate 20 12/20/19 06:00 Blood Pressure 130/68 12/20/19 06:00 O2 Sat by Pulse Oximetry (%) 94 L 12/20/19 06:00 Constitutional: Yes: Calm, Mild Distress Cardiovascular: Yes: S1, S2 Respiratory: Yes: Regular, CTA Bilaterally Gastrointestinal: Yes: Normal Bowel Sounds, Soft Musculoskeletal: Yes: WNL Extremities: Yes: Other Neurological: Yes: Alert, Oriented Psychiatric: Yes: Alert, Oriented Labs: CBC, BMP 12/19/19 06:20 12/19/19 06:20 Assessment/Plan POD#3: S/P L1 laminectomy & inferior facetectomy/L2 laminectomy & superior and inferior facetectomies/L3 laminectomy & superior and inferior facetectomies/L4 laminectomy & superior and inferior facetectomies/L5 laminectomy & superior and inferior facetectomies/S1 laminectomy & superior facetectomy/L4-L5 discectomy, PLIF, and posterolateral arthrodesis/L5-S1 discectomy, PLIF, and posterolateral arthrodesis/Excision extensive left L2 nerve sheath tumor/Left L2-L3 Hernandez- Randle osteotomy L2-L3 Neurofibroma Lumbar Spinal Stenosis with Radiculopathy and Claudication HTN BUBBA on CPAP having increased blood draining from the drain plan continue current mgmt will deescalate continue acylovir rest as per he team
--- NOTE | 2019-12-20 09:48 | PN ---
Progress Note, Physician History of Present Illness: stable feels much better - Current Medication List Current Medications: Active Medications Acetaminophen (Tylenol -) 650 mg PO Q6H PRN PRN Reason: PAIN LEVEL 1-5 Last Admin: 12/18/19 00:04 Dose: 650 mg Documented by: Artificial Tears (Artificial Tears) 1 drop OU BID PRN PRN Reason: DRY EYES Diazepam (Valium -) 5 mg PO Q6H PRN PRN Reason: MUSCLE SPASMS Last Admin: 12/18/19 23:07 Dose: 5 mg Documented by: Diphenhydramine HCl (Benadryl -) 12.5 mg PO Q8H PRN PRN Reason: ALLERGIES Docusate Sodium (Colace -) 100 mg PO BID PRN PRN Reason: CONSTIPATION Last Admin: 12/17/19 10:37 Dose: 100 mg Documented by: Gabapentin (Neurontin -) 300 mg PO BID [facility] Last Admin: 12/19/19 22:49 Dose: 300 mg Documented by: Hydromorphone HCl (Dilaudid Vial -) 2 mg SQ Q8H PRN PRN Reason: PAIN LEVEL 6-10 Last Admin: 12/20/19 02:18 Dose: 2 mg Documented by: Lidocaine (Lidoderm Patch -) 1 patch TP DAILY@2230 [facility] Last Admin: 12/19/19 23:12 Dose: Not Given Documented by: Lisinopril (Prinivil) 20 mg PO HS [facility] Last Admin: 12/19/19 22:49 Dose: 20 mg Documented by: Methylnaltrexone [place] (Relistor -) 12 mg SQ DAILY [facility] Last Admin: 12/19/19 17:52 Dose: 12 mg Documented by: Miscellaneous (Lidoderm Patch Removal) 1 each MC DAILY@1000 [facility] Last Admin: 12/19/19 11:08 Dose: 1 each Documented by: Ondansetron HCl (Zofran Injection) 4 mg IVPUSH Q6H PRN PRN Reason: NAUSEA AND/OR VOMITING Polyethylene Glycol (Miralax (For Daily Use) -) 17 gm PO DAILY [facility] Last Admin: 12/19/19 11:08 Dose: 17 gm Documented by: Senna (Senna -) 1 tab PO BID [facility] Last Admin: 12/19/19 23:12 Dose: Not Given Documented by: Simethicone (Mylicon -) 80 mg PO TID PRN PRN Reason: GAS Last Admin: 12/18/19 23:08 Dose: 80 mg Documented by: Valacyclovir HCl (Valtrex -) 1,000 mg PO Q8H [facility] Last Admin: 12/20/19 08:06 Dose: Not Given Documented by: - Objective Vital Signs: Vital Signs Temperature 98.8 F 12/20/19 06:00 Pulse Rate 85 12/20/19 06:00 Respiratory Rate 20 12/20/19 06:00 Blood Pressure 130/68 12/20/19 06:00 O2 Sat by Pulse Oximetry (%) 94 L 12/20/19 06:00 Constitutional: Yes: No Distress, Calm Cardiovascular: Yes: S1, S2 Respiratory: Yes: Regular, CTA Bilaterally Gastrointestinal: Yes: Normal Bowel Sounds, Soft Musculoskeletal: Yes: WNL Extremities: Yes: WNL Neurological: Yes: Alert, Oriented Psychiatric: Yes: Alert, Oriented Labs: CBC, BMP 12/19/19 06:20 12/19/19 06:20 Assessment/Plan POD#3: S/P L1 laminectomy & inferior facetectomy/L2 laminectomy & superior and inferior facetectomies/L3 laminectomy & superior and inferior facetectomies/L4 laminectomy & superior and inferior facetectomies/L5 laminectomy & superior and inferior facetectomies/S1 laminectomy & superior facetectomy/L4-L5 discectomy, PLIF, and posterolateral arthrodesis/L5-S1 discectomy, PLIF, and posterolateral arthrodesis/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
[2019-12-20] MEDS ORDERED: PT OWN MED DRAWER 7, Y5N ONE (10:01)
[2019-12-20] MEDS: SENNOSIDES 8.6MG TABLET (FP) PO SCH ×2 (10:06→21:42)
[2019-12-20] MEDS: SIMETHICONE 80 MG TAB.CHEW (FP) PO PRN (10:06)
[2019-12-20] MEDS: GABAPENTIN 300 MG CAPSULE PO SCH ×2 (10:06→21:43)
[2019-12-20] MEDS: ACETAMINOPHEN 325 MG TABLET (FP) PO PRN (10:06)
[2019-12-20] MEDS: DOCUSATE SODIUM 100 MG CAPSULE (FP) PO PRN (10:06)
[2019-12-20] MEDS: POLYETHYLENE GLYCOL 3350 119 GM BTL PO SCH (10:07)
[2019-12-20] MEDS: LIDOCAINE PATCH REMOVAL MC SCH (10:07)
[2019-12-20] MEDS: Methylnaltrexone Bromide 12 MG/0.6 ML KIT SQ SCH (10:07)
--- NOTE | 2019-12-20 14:17 | PN ---
Teaching Attending Note Name of Resident: Luis Angel Zendejas ATTENDING PHYSICIAN STATEMENT I saw and evaluated the patient. I reviewed the resident's note and discussed the case with the resident. I agree with the resident's findings and plan as documented. SUBJECTIVE: pt seen and examined OBJECTIVE: Last Vital Signs Temp Pulse Resp BP Pulse Ox 98.8 F 85 20 130/68 94 L 12/20/19 06:00 12/20/19 06:00 12/20/19 06:00 12/20/19 06:00 12/20/19 06:00 Heart - S1, S2, RRR Lungs - clear to auscultation Abdomen - High BMI. Soft, mild generalized tenderness, no guarding/rebound. Bowel Sounds normal. Extremities - No calf tenderness. Neuro - AAO x 3. Tone/Power normal all extremities. MS - Surgical Site to be examined by Spinal Sx. CBCD WBC 9.1 K/mm3 (4.0-10.0) 12/19/19 06:20 RBC 3.66 M/mm3 (3.60-5.2) 12/19/19 06:20 Hgb 11.1 GM/dL (10.7-15.3) 12/19/19 06:20 Hct 32.3 % (32.4-45.2) L 12/19/19 06:20 MCV 88.2 fl (80-96) 12/19/19 06:20 MCHC 34.2 g/dl (32.0-36.0) 12/19/19 06:20 RDW 14.5 % (11.6-15.6) 12/19/19 06:20 Plt Count 477 K/MM3 (134-434) H 12/19/19 06:20 MPV 7.3 fl (7.5-11.1) L 12/19/19 06:20 CMP Sodium 136 mmol/L (136-145) 12/19/19 06:20 Potassium 4.2 mmol/L (3.5-5.1) 12/19/19 06:20 Chloride 100 mmol/L (98-107) 12/19/19 06:20 Carbon Dioxide 28 mmol/L (21-32) 12/19/19 06:20 Anion Gap 8 MMOL/L (8-16) 12/19/19 06:20 BUN 5.4 mg/dL (7-18) L 12/19/19 06:20 Creatinine 0.4 mg/dL (0.55-1.3) L 12/19/19 06:20 Random Glucose 89 mg/dL (74-106) 12/19/19 06:20 Calcium 8.8 mg/dL (8.5-10.1) 12/19/19 06:20 Total Bilirubin 0.4 mg/dL (0.2-1) 12/19/19 06:20 AST 142 U/L (15-37) H 12/19/19 06:20 ALT 155 U/L (13-61) H 12/19/19 06:20 Alkaline Phosphatase 288 U/L (45-117) H 12/19/19 06:20 Total Protein 6.5 g/dl (6.4-8.2) 12/19/19 06:20 Albumin 2.4 g/dl (3.4-5.0) L 12/19/19 06:20 Active Medications Acetaminophen (Tylenol -) 650 mg PO Q6H PRN PRN Reason: PAIN LEVEL 1-5 Last Admin: 12/20/19 10:06 Dose: 650 mg Documented by: Artificial Tears (Artificial Tears) 1 drop OU BID PRN PRN Reason: DRY EYES Diazepam (Valium -) 5 mg PO Q6H PRN PRN Reason: MUSCLE SPASMS Last Admin: 12/18/19 23:07 Dose: 5 mg Documented by: Diphenhydramine HCl (Benadryl -) 12.5 mg PO Q8H PRN PRN Reason: ALLERGIES Docusate Sodium (Colace -) 100 mg PO BID PRN PRN Reason: CONSTIPATION Last Admin: 12/20/19 10:06 Dose: 100 mg Documented by: Gabapentin (Neurontin -) 300 mg PO BID [facility] Last Admin: 12/20/19 10:06 Dose: 300 mg Documented by: Hydromorphone HCl (Dilaudid Vial -) 2 mg SQ Q8H PRN PRN Reason: PAIN LEVEL 6-10 Last Admin: 12/20/19 10:24 Dose: 2 mg Documented by: Lidocaine (Lidoderm Patch -) 1 patch TP DAILY@2230 [facility] Last Admin: 12/19/19 23:12 Dose: Not Given Documented by: Lisinopril (Prinivil) 20 mg PO HS [facility] Last Admin: 10/14/20 22:49 Dose: 20 mg Documented by: Methylnaltrexone [place] (Relistor -) 12 mg SQ DAILY [facility] Last Admin: 12/20/19 10:07 Dose: Not Given Documented by: Miscellaneous (Lidoderm Patch Removal) 1 each MC DAILY@1000 [facility] Last Admin: 12/20/19 10:07 Dose: 1 each Documented by: Ondansetron HCl (Zofran Injection) 4 mg IVPUSH Q6H PRN PRN Reason: NAUSEA AND/OR VOMITING Oxycodone/Acetaminophen (Percocet 5/325 -) 1 combo PO Q6H PRN PRN Reason: PAIN LEVEL 7 - 10 Polyethylene Glycol (Miralax (For Daily Use) -) 17 gm PO DAILY [facility] Last Admin: 12/20/19 10:07 Dose: Not Given Documented by: Senna (Senna -) 1 tab PO BID [facility] Last Admin: 12/20/19 10:06 Dose: 1 tab Documented by: Simethicone (Mylicon -) 80 mg PO TID PRN PRN Reason: GAS Last Admin: 12/20/19 10:06 Dose: 80 mg Documented by: Valacyclovir HCl (Valtrex -) 1,000 mg PO Q8H [facility] Last Admin: 12/20/19 13:37 Dose: Not Given Documented by: ASSESSMENT AND PLAN: 49 F with PMH HTN & Sleep apnea (on CPAP) presents with a pre-operative diagnosis of (1) L2-L3 neurofibroma, (2) L4-L5 spondylolisthesis with associated facet cyst, (3) L5-S1 intervertebral disc disorder with associated facet cyst, (4) L2-S1 spinal stenosis with associated radiculopathy, claudication, and neurogenic bladder. She presented for surgery with Dr. Carl Randle for L1-S1 laminectomies & facetectomies, left L2-L3 Hernandez-Randle osteotomy, excisional biopsy L2-L3 neurofibroma, L4-L5 PLIF (Posterior Lumbar Interbody Fusion (PLIF), & L5-S1 PLIF, T12-S1 posterior instrumented spinal fusion # L2/3 Neurofibroma, L4/5 spondylolithiasis, L5/S1 intervertebral disc disorder with facet cyst, L2-S1 spinal stenosis with Radiculopathy, Claudication, and Neurogenic Bladder s/p L1 laminectomy & inferior facetectomy/L2 laminectomy & superior and inferior facetectomies/L3 laminectomy & superior and inferior facetectomies/L4 laminectomy & superior and inferior facetectomies/L5 laminectomy & superior and inferior facetectomies/S1 laminectomy & superior facetectomy/L4-L5 discectomy, PLIF, and posterolateral arthrodesis/L5-S1 discectomy, PLIF, and posterolateral arthrodesis/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 pain management as indicated bowel regimen Post-op Incentive Spirometry PT/Mobilization as per Spinal Sx. tolerating diet DC planning cleared by surgery Anemia HTN elevated LFT BUBBA Shingles (acyclovir, airborne and contact precautions) DVT Px - SCDs as per Spinal Sx. Mechanical Px only as per Sx.
[2019-12-20] MEDS ORDERED: ACETAMINOPHEN 325 MG TABLET (FP) PO PRN (15:00)
[2019-12-20] MEDS ORDERED: oxyCODONE HCL 5 MG TABLET PO PRN (15:00)
[2019-12-20] MEDS ORDERED: valACYclovir HCL 500 MG TABLET (FP) ONE (21:01)
[2019-12-20] MEDS: LIDOCAINE 5% TOPICAL PATCH TP SCH (21:41)
[2019-12-20] MEDS: LISINOPRIL 20 MG TABLET PO SCH (21:42)
[2019-12-20] MEDS ORDERED: diazePAM 5 MG TABLET PO ONE (22:41)
[2019-12-20 23:49] VITALS: PULSE 87
[2019-12-21] MEDS: LIDOCAINE 5% TOPICAL PATCH TP SCH (00:06)
[2019-12-21] MEDS: HYDROmorphone HCl 2 MG/ML VIAL SQ PRN ×2 (02:55→10:35)
[2019-12-21] MEDS ORDERED: valACYclovir HCL 500 MG TABLET (FP) PO SCH (06:00)
--- NOTE | 2019-12-21 07:00 | DS ---
Physical Exam: SUBJECTIVE: Patient seen and examined OBJECTIVE: Vital Signs Period Temp Pulse Resp BP Sys/Connolly Pulse Ox Last 24 Hr 98.2 F-98.9 F 87-90 18-20 119-138/68-94 96-98 PHYSICAL EXAM GENERAL: The patient is awake, alert, and fully oriented, in no acute distress. HEAD: Normal with no signs of trauma. EYES: PERRL, extraocular movements intact, sclera anicteric, conjunctiva clear. ENT: Ears normal, nares patent, oropharynx clear without exudates, moist mucous membranes. NECK: Trachea midline, full range of motion, supple. LUNGS: Breath sounds equal, clear to auscultation bilaterally, no wheezes, no crackles, no accessory muscle use. HEART: Regular rate and rhythm, S1, S2 without murmur, rub or gallop. ABDOMEN: Soft, nontender, nondistended, normoactive bowel sounds, no guarding, no rebound, no hepatosplenomegaly, no masses. EXTREMITIES: 2+ pulses, warm, well-perfused, no edema. NEUROLOGICAL: Cranial nerves II through XII grossly intact. Normal speech, gait not observed. PSYCH: Normal mood, normal affect. SKIN: Warm, dry, normal turgor, no rashes or lesions noted. LABS HOSPITAL COURSE: Date of Admission:12/10/19 Date of Discharge: 12/21/19 Minutes to complete discharge: 36 Discharge Summary Problems reviewed: Yes Condition: Improved - Instructions Diet, Activity, Other Instructions: You were admitted to the hospital after an elective surgery with Dr. Randle for a spinal tumor. The tumor was removed. You also had a shingles outbreak on your left leg (L5 dermatome). You were treated with antiviral medications with improvement. Medications: -Avoid NSAID medications including aspiri/ naproxen/ ibuprofen etc. -Gabapentin 300mg tablets two times per day -Valtrex 1000mg tablet three times per day, for 6 days until completion (December 25, 2019) Follow up: 1. Dr. Randle orthopedic surgery office in 2 weeks post discharge. 2. Primary care doctor in 1-2 weeks for continued follow up care. Additional Instructions: -Keep your surgical dressing clean and dry. -No excessive bending/ lifting or twisting for a few months, until cleared by your surgeon. Referrals: Carl Randle MD [Staff Physician] - Disposition: LONG-TERM FACILITY - Home Medications Comprehensive Discharge Medication List: Ambulatory Orders Lisinopril 20 mg PO HS 12/07/19 Docusate Sodium [Colace -] 100 mg PO BID PRN capsule 12/20/19 Gabapentin [Neurontin -] 300 mg PO BID capsule 12/20/19 Lidocaine 5% Patch [Lidoderm -] 1 patch TP DAILY@2230 patch 12/20/19 Methylnaltrexone [place] [Relistor -] 12 mg SQ DAILY kit 12/20/19 Oxycodone HCl/Acetaminophen [Percocet 5-325 mg Tablet] 1 combo PO Q6H PRN tablet 12/20/19 Polyethylene Glycol 3350 [Miralax 119 gm Btl -] 17 gm PO DAILY bottle 12/20/19 Sennosides [Senna -] 1 tab PO BID tablet 12/20/19 Simethicone [Mylicon -] 80 mg PO TID PRN tab.chew 12/20/19 Valacyclovir HCl [Valtrex -] 1,000 mg PO Q8H tablet 12/20/19 This patient is new to me today: No Emergency Visit: Yes ED Registration Date: 12/10/19 Care time: The patient presented to the Emergency Department on the above date and was hospitalized for further evaluation of their emergent condition. Critical Care patient: No - Discharge Referral Referred to [id number] No ATTENDING PHYSICIAN STATEMENT I saw and evaluated the patient. I reviewed the resident's note and discussed the case with the resident. I agree with the resident's findings and plan as documented. SUBJECTIVE: OBJECTIVE: ASSESSMENT AND PLAN:
[2019-12-21 07:24] VITALS: BP 128/59; TEMP 98.4
[2019-12-21] MEDS ORDERED: PT OWN MED DRAWER 7, Y5N ONE (10:11)
[2019-12-21] MEDS: SIMETHICONE 80 MG TAB.CHEW (FP) PO PRN (10:13)
[2019-12-21] MEDS: SENNOSIDES 8.6MG TABLET (FP) PO SCH (10:13)
[2019-12-21] MEDS: LIDOCAINE PATCH REMOVAL MC SCH (10:14)
[2019-12-21] MEDS: POLYETHYLENE GLYCOL 3350 119 GM BTL PO SCH (10:14)
[2019-12-21] MEDS: GABAPENTIN 300 MG CAPSULE PO SCH (10:14)
[2019-12-21] MEDS: Methylnaltrexone Bromide 12 MG/0.6 ML KIT SQ SCH (10:14)
--- NOTE | 2019-12-21 10:29 | PN ---
Progress Note, Physician History of Present Illness: stable feels much better - Current Medication List Current Medications: Active Medications Acetaminophen (Tylenol -) 650 mg PO Q6H PRN PRN Reason: PAIN LEVEL 1-5 Last Admin: 12/20/19 10:06 Dose: 650 mg Documented by: Acetaminophen (Tylenol -) 325 mg PO Q6H PRN PRN Reason: PAIN LEVEL 7-10 Artificial Tears (Artificial Tears) 1 drop OU BID PRN PRN Reason: DRY EYES Diphenhydramine HCl (Benadryl -) 12.5 mg PO Q8H PRN PRN Reason: ALLERGIES Docusate Sodium (Colace -) 100 mg PO BID PRN PRN Reason: CONSTIPATION Last Admin: 12/20/19 10:06 Dose: 100 mg Documented by: Gabapentin (Neurontin -) 300 mg PO BID [facility] Last Admin: 12/21/19 10:14 Dose: 300 mg Documented by: Hydromorphone HCl (Dilaudid Vial -) 2 mg SQ Q8H PRN PRN Reason: PAIN LEVEL 6-10 Last Admin: 12/21/19 02:55 Dose: 2 mg Documented by: Lidocaine (Lidoderm Patch -) 1 patch TP DAILY@2230 [facility] Last Admin: 12/21/19 00:06 Dose: 1 patch Documented by: Lisinopril (Prinivil) 20 mg PO HS [facility] Last Admin: 12/20/19 21:42 Dose: 20 mg Documented by: Methylnaltrexone Olden (Relistor -) 12 mg SQ DAILY [facility] Last Admin: 12/21/19 10:14 Dose: Not Given Documented by: Miscellaneous (Lidoderm Patch Removal) 1 each MC DAILY@1000 [facility] Last Admin: 12/21/19 10:14 Dose: 1 each Documented by: Ondansetron HCl (Zofran Injection) 4 mg IVPUSH Q6H PRN PRN Reason: NAUSEA AND/OR VOMITING Oxycodone HCl (Roxicodone -) 5 mg PO Q6H PRN PRN Reason: PAIN LEVEL 7-10 Polyethylene Glycol (Miralax (For Daily Use) -) 17 gm PO DAILY [facility] Last Admin: 12/21/19 10:14 Dose: Not Given Documented by: Senna (Senna -) 1 tab PO BID [facility] Last Admin: 12/21/19 10:13 Dose: 1 tab Documented by: Simethicone (Mylicon -) 80 mg PO TID PRN PRN Reason: GAS Last Admin: 12/21/19 10:13 Dose: 80 mg Documented by: Valacyclovir HCl (Valtrex -) 1,000 mg PO TID [facility] Last Admin: 12/21/19 06:47 Dose: Not Given Documented by: - Objective Vital Signs: Vital Signs Temperature 98.4 F 12/21/19 06:00 Pulse Rate 87 12/21/19 06:00 Respiratory Rate 18 12/21/19 06:00 Blood Pressure 128/59 L 12/21/19 06:00 O2 Sat by Pulse Oximetry (%) 99 12/21/19 06:00 Constitutional: Yes: No Distress, Calm Cardiovascular: Yes: S1, S2 Respiratory: Yes: Regular, CTA Bilaterally Gastrointestinal: Yes: Normal Bowel Sounds, Soft Musculoskeletal: Yes: WNL Extremities: Yes: WNL Wound/Incision: Yes: Clean/Dry Neurological: Yes: Alert, Oriented Labs: CBC, BMP 12/19/19 06:20 12/19/19 06:20 Assessment/Plan POD#3: S/P L1 laminectomy & inferior facetectomy/L2 laminectomy & superior and inferior facetectomies/L3 laminectomy & superior and inferior facetectomies/L4 laminectomy & superior and inferior facetectomies/L5 laminectomy & superior and inferior facetectomies/S1 laminectomy & superior facetectomy/L4-L5 discectomy, PLIF, and posterolateral arthrodesis/L5-S1 discectomy, PLIF, and posterolateral arthrodesis/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
--- NOTE | 2019-12-21 15:18 | PN ---
Teaching Attending Note Name of Resident: Kassidy Jaramillo ATTENDING PHYSICIAN STATEMENT I saw and evaluated the patient. I reviewed the resident's note and discussed the case with the resident. I agree with the resident's findings and plan as documented. SUBJECTIVE: OBJECTIVE: Last Vital Signs Temp Pulse Resp BP Pulse Ox 98.4 F 87 18 128/59 L 99 12/21/19 06:00 12/21/19 06:00 12/21/19 06:00 12/21/19 06:00 12/21/19 06:00 Heart - S1, S2, RRR Lungs - clear to auscultation Abdomen - High BMI. Soft, mild generalized tenderness, no guarding/rebound. Bowel Sounds normal. Extremities - No calf tenderness. Neuro - AAO x 3. Tone/Power normal all extremities. MS - Surgical Site to be examined by Spinal Sx ASSESSMENT AND PLAN: # L2/3 Neurofibroma, L4/5 spondylolithiasis, L5/S1 intervertebral disc disorder with facet cyst, L2-S1 spinal stenosis with Radiculopathy, Claudication, and Neurogenic Bladder s/p L1 laminectomy & inferior facetectomy/L2 laminectomy & superior and inferior facetectomies/L3 laminectomy & superior and inferior facetectomies/L4 laminec merry & superior and inferior facetectomies/L5 laminectomy & superior and inferior facetectomies/S1 laminectomy & superior facetectomy/L4-L5 discectomy, PLIF, and posterolateral arthrodesis/L5-S1 discectomy, PLIF, and posterolateral arthrodesis/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 pain management as indicated bowel regimen Post-op Incentive Spirometry PT/Mobilization as per Spinal Sx. tolerating diet DC planning cleared by surgery Anemia HTN elevated LFT BUBBA Shingles (acyclovir, airborne and contact precautions) DVT Px - SCDs as per Spinal Sx. Mechanical Px only as per Sx.
== END 2019-12-21 10:50 | DRG 454 ==
LOC: J2C 04:43 → JICU 17:48 → J8W 12-17 00:35
PROVIDERS: ADMIT Orthopaedic Surgery Adult Reconstructive Orthopaedic Surgery; ATTEND Student in an Organized Health Care Education/Training Program
PROC: 0SG1071 Fusion of 2 or more Lumbar Vertebral Joints with Autologous Tissue Substitute, Posterior Approach, Posterior Column, Open Approach (ICD-10-PCS; 2019-12-10)
PROC: 01NB0ZZ Release Lumbar Nerve, Open Approach (ICD-10-PCS; 2019-12-10)
PROC: 0QB00ZZ Excision of Lumbar Vertebra, Open Approach (ICD-10-PCS; 2019-12-10)
PROC: 00BY0ZX Excision of Lumbar Spinal Cord, Open Approach, Diagnostic (ICD-10-PCS; 2019-12-10)
PROC: 0SG30AJ Fusion of Lumbosacral Joint with Interbody Fusion Device, Posterior Approach, Anterior Column, Open Approach (ICD-10-PCS; 2019-12-10)
PROC: 0ST40ZZ Resection of Lumbosacral Disc, Open Approach (ICD-10-PCS; 2019-12-10)
PROC: 0RGA071 Fusion of Thoracolumbar Vertebral Joint with Autologous Tissue Substitute, Posterior Approach, Posterior Column, Open Approach (ICD-10-PCS; 2019-12-10)
PROC: 0JX70ZZ Transfer Back Subcutaneous Tissue and Fascia, Open Approach (ICD-10-PCS; 2019-12-10)
PROC: B01BZZZ Fluoroscopy of Spinal Cord (ICD-10-PCS; 2019-12-10)
PROC: 07DR0ZZ Extraction of Iliac Bone Marrow, Open Approach (ICD-10-PCS; 2019-12-10)
PROC: 4A11X4G Monitoring of Peripheral Nervous Electrical Activity, Intraoperative, External Approach (ICD-10-PCS; 2019-12-10)
PROC: 0SG00AJ Fusion of Lumbar Vertebral Joint with Interbody Fusion Device, Posterior Approach, Anterior Column, Open Approach (ICD-10-PCS; principal; 2019-12-10 08:00)
PROC: 30233N1 Transfusion of Nonautologous Red Blood Cells into Peripheral Vein, Percutaneous Approach (ICD-10-PCS; 2019-12-13)
DX: M51.16 Intervertebral disc disorders with radiculopathy, lumbar region (principal); Z68.41 Body mass index [BMI] 40.0-44.9, adult; D62 Acute posthemorrhagic anemia; M43.06 Spondylolysis, lumbar region; M51.17 Intervertebral disc disorders with radiculopathy, lumbosacral region; M48.062 Spinal stenosis, lumbar region with neurogenic claudication; M48.07 Spinal stenosis, lumbosacral region; D36.10 Benign neoplasm of peripheral nerves and autonomic nervous system, unspecified; N31.9 Neuromuscular dysfunction of bladder, unspecified; D49.2 Neoplasm of unspecified behavior of bone, soft tissue, and skin; J44.9 Chronic obstructive pulmonary disease, unspecified; J45.909 Unspecified asthma, uncomplicated; E78.5 Hyperlipidemia, unspecified; D25.9 Leiomyoma of uterus, unspecified; E88.81 Metabolic syndrome and other insulin resistance; E28.2 Polycystic ovarian syndrome; E55.9 Vitamin D deficiency, unspecified; I10 Essential (primary) hypertension; E66.01 Morbid (severe) obesity due to excess calories; D64.9 Anemia, unspecified; G47.33 Obstructive sleep apnea (adult) (pediatric); Z88.0 Allergy status to penicillin; R94.5 Abnormal results of liver function studies; B02.9 Zoster without complications
CPT/HCPCS: 36415; 36430; 71045-TC-FY; 72100-TC-FY; 72131-TC; 76000-TC-FY; 76705-TC; 80048; 80053; 81003; 83605; 83735; 84100; 84703; 85025; 85027; 85651; 86140; 86850; 86891; 86900; 86901; 86922; 87040; 87086; 88304-TC; 88307-TC; 88311-TC; 88331-TC; 94010; 94760; 97116-GP; 97161-GP; J0131; J1644; P9058

== ENCOUNTER 2020-06-03 12:51 | Day surgery (SDC) | payer BC ==
[2020-05-29 10:00] VITALS: BMI 38.5
[2020-06-03] MEDS ORDERED: ONDANSETRON 4 MG/2 ML VIAL ONE ×2 (14:32→16:02)
[2020-06-03] MEDS ORDERED: LIDOCAINE HCL/PF 2% SDV 5ML VIAL ONE (14:32)
[2020-06-03] MEDS ORDERED: DEXAMETHASONE SOD PHOSPHATE 4 MG/1 ML VIAL ONE ×2 (14:32→14:47)
[2020-06-03] MEDS ORDERED: PROPOFOL 20 ML ONE ×3 (14:33→15:40)
[2020-06-03] MEDS ORDERED: MIDAZOLAM HCL 2 MG/2 ML SINGLE DOSE VIAL ONE ×2 (14:33)
[2020-06-03] MEDS ORDERED: BUPIVACAINE HCL/EPINEPHRINE/PF 30 ML VIAL IJ ONE (14:45)
[2020-06-03] MEDS ORDERED: TRIAMCINOLONE ACET 40MG/1ML VIAL ONE ×2 (14:45→15:10)
[2020-06-03] MEDS ORDERED: ROCURONIUM BROMIDE 50 MG/5 ML SYRINGE ONE ×2 (14:47→14:54)
[2020-06-03] MEDS ORDERED: SUCCINYLCHOLINE CHLORIDE 200 MG/10 ML SYRINGE ONE (14:55)
[2020-06-03] MEDS ORDERED: ceFAZolin SODIUM 1 GM VIAL ONE (14:57)
[2020-06-03] MEDS ORDERED: NEOSTIGMINE METHYLSULFATE 0.5 MG/ML - 10 ML MDV ONE (15:43)
[2020-06-03] MEDS ORDERED: GLYCOPYRROLATE 0.2 MG/1 ML VIAL ONE (16:02)
[2020-06-03] MEDS ORDERED: oxyCODONE HCL 5 MG TABLET PO PRN (16:18)
[2020-06-03] MEDS ORDERED: PROMETHAZINE HCL 25 MG/1 ML VIAL IVPUSH PRN (16:18)
[2020-06-03] MEDS ORDERED: ONDANSETRON 4 MG/2 ML VIAL IVPUSH PRN (16:18)
[2020-06-03] MEDS ORDERED: LACTATED RINGERS SOLUTION 1,000 ML IV SCH (16:30)
[2020-06-03 17:39] VITALS: TEMP 97.8
[2020-06-03 18:13] VITALS: BP 110/65; PULSE 64
== END 2020-06-03 18:29 | disposition home or self-care (01) ==
LOC: FASU 12:51
PROVIDERS: ATTEND Orthopaedic Surgery Adult Reconstructive Orthopaedic Surgery
PROC: 3E0 Administration, Physiological Systems and Anatomical Regions, Introduction (ICD-10-PCS; 2020-06-03)
PROC: BR17ZZZ Fluoroscopy of Thoracic Spine (ICD-10-PCS; 2020-06-03)
PROC: 07JT3ZZ Inspection of Bone Marrow, Percutaneous Approach (ICD-10-PCS; 2020-06-03)
PROC: 07DR3ZZ Extraction of Iliac Bone Marrow, Percutaneous Approach (ICD-10-PCS; principal; 2020-06-03 15:44)
DX: T84.89XA Other specified complication of internal orthopedic prosthetic devices, implants and grafts, initial encounter (principal); M51.16 Intervertebral disc disorders with radiculopathy, lumbar region
CPT/HCPCS: 0232T; 38206; 72100-TC-FY; 84703; 94760